=== PATIENT | female | born 1955 | race Caucasian/White ===

== ENCOUNTER 2018-03-20 16:45 | Emergency (ER) | payer MEDICARE, MEDICAID ==
[~2018-03-20 16:45] MED LIST: ISOVUE-370 76%-LOCM 1 ML ONE; Iopamidol 370 76% 50 ML VIAL FS ONE
[2018-03-20 17:11] LABS: #Basophils 0.1 thou/uL (0.0-0.2); #Lymphocytes 2.1 thou/uL (1.20-3.40); #Neutrophils 7.2 thou/uL (1.40-6.50); %Basophils 0.8 % (0.0-1.0); %Eosinophils 0.3 % (0.0-10.0); %Lymphocytes 19.9 % (21.0-51.0); %Monocytes 9.3 % (0.0-10.0); %Neutrophils 69.7 % (42.0-75.0); Hemoglobin 14.3 g/dL (12.0-16.0); Mean Corpuscular Hemoglobin 30.9 pg (27.0-31.0); Mean Corpuscular Volume 88.3 fl (81.0-99.0); Mean Platelet Volume 8.4 fL (7.4-10.4); Platelet Count 213 thou/uL (130-400); RBC Distribution Width 11.2 % (11.5-14.5); Red Blood Cell (RBC) Count 4.63 mill/uL (4.20-5.40); White Blood Cell (WBC) Count 10.4 thou/uL (4.8-10.8)
[2018-03-20] MEDS ORDERED: Ondansetron ODT 4 MG TAB ONE (17:28)
[2018-03-20] MEDS ORDERED: Metoclopramide HCl 10 MG/2 ML VIAL ONE (17:28)
[2018-03-20 17:40] LABS: CKMB 4.4 ng/mL (0-6.6); Troponin I Less than 0.010 ng/mL (< 0.028)
[2018-03-20 17:49] LABS: ALT (SGPT) 26 U/L (8-55); AST (SGOT) 41 U/L (5-34); Albumin 4.1 g/dL (3.4-4.8); Alkaline Phosphatase 113 U/L (40-150); Anion Gap 19 mmol/L (10-20); BUN (Urea Nitrogen) 9 mg/dL (9.8-20.1); Bilirubin, Total 0.6 mg/dL (0.2-1.2); Calc. Creatinine Clearance 0 mL/min (70-130); Calcium 9.2 mg/dL (7.8-10.44); Carbon Dioxide 21 mmol/L (23-31); Chloride 89 mmol/L (98-107); Estimated GFR-MDRD 72; Globulin 3.3 g/dL (2.4-3.5); Glucose 96 mg/dL (80-115); Lipase 16 U/L (8-78); Potassium 4.2 mmol/L (3.5-5.1); Protein, Total 7.4 g/dL (6.0-8.3); Sodium 125 mmol/L (136-145)
[2018-03-20] MEDS ORDERED: Fentanyl 100 MCG/2 ML VIAL ONE (19:08)
[2018-03-20 19:36] LABS: Bilirubin Negative (Negative); Blood, Urine Negative (Negative); Clarity CLOUDY (Clear); Glucose, Urine (Dipstick) Negative (Negative); Leukocyte Large (Negative); Nitrite Negative (Negative); Protein, Urine (Dipstick) Negative (Neg-Trace); Specific Gravity, Urine 1.018 (1.002-1.036); Urobilinogen 0.2 mg/dL (0.2-1.0); pH, Urine 7.5 (5.0-9.0)
[2018-03-20 19:39] LABS: Bacteria/HPF 2+ HPF (None Seen); Hyaline Casts/LPF 7-10 HYALINE CAST LPF (0-3 Hyaline); Pathc Cast-AUWi Flag 0.58 (0-2.49); Squamous Epithelial 0-3 HPF (0-3)
--- NOTE | 2018-03-20 19:52 | CT ---
CT OF ABDOMEN AND PELVIS PERFORMED WITH INTRAVENOUS CONTRAST ENHANCEMENT: 03/20/18 HISTORY: Nausea, vomiting, and diarrhea, abdominal pain. History of irritable bowel syndrome. Uterine ablation and cholecystectomy. The lung bases are clear. The liver, spleen, and pancreas regions appear unremarkable. The gallbladde r has been removed. Right and left adrenal glands and right and left kidneys are normal in size. There is no significant periaortic or mesenteric lymphadenopathy. Mild amount of stool seen throughout the colon. No evidence for obstruction. CT OF PELVIS PERFORMED WITH CONTRAST ENHANCEMENT: The appendix is difficult to definitely identify. I do not see any signs for appendicitis. There is n o inflammatory process, adenopathy or mass. IMPRESSION: 1. Postop cholecystectomy change. 2. No acute abnormalities of abdomen or pelvis. POS: BABAK
[2018-03-20] MEDS ORDERED: Ciprofloxacin 500 MG TAB ONE (21:30)
== END 2018-03-20 21:45 | disposition home or self-care (01) ==
LOC: ERS 16:45
DX: N39.0 Urinary tract infection, site not specified (principal); I10 Essential (primary) hypertension; J45.909 Unspecified asthma, uncomplicated; F41.9 Anxiety disorder, unspecified; F31.9 Bipolar disorder, unspecified
CPT/HCPCS: 74177; 80053; 81003; 81015; 82553; 83690; 84484; 85025; 93005; 96361; 96372; 96374; 96375; J2765; J3010; Q0162

== ENCOUNTER 2018-03-26 13:54 | Inpatient (IN) | payer MEDICARE, MEDICAID ==
[~2018-03-26 13:54] MED LIST changes: -ISOVUE-370 76%-LOCM 1 ML ONE; +Iopamidol 370 76% 100 ML VIAL ONE; -Iopamidol 370 76% 50 ML VIAL FS ONE
[2018-03-26 15:19] LABS: #Basophils 0.1 thou/uL (0.0-0.2); #Eosinphils 0.1 thou/uL (0.0-0.7); #Monocytes 0.7 thou/uL (0.11-0.59); %Basophils 1.5 % (0.0-1.0); %Eosinophils 0.9 % (0.0-10.0); %Lymphocytes 29.3 % (21.0-51.0); %Monocytes 9.6 % (0.0-10.0); %Neutrophils 58.8 % (42.0-75.0); Hemoglobin 14.6 g/dL (12.0-16.0); Mean Corpuscular HGB CONC 35.1 g/dL (32.0-36.0); Mean Corpuscular Hemoglobin 31.1 pg (27.0-31.0); Mean Corpuscular Volume 88.6 fl (81.0-99.0); Mean Platelet Volume 7.7 fL (7.4-10.4); Platelet Count 227 thou/uL (130-400); RBC Distribution Width 11.3 % (11.5-14.5); Red Blood Cell (RBC) Count 4.69 mill/uL (4.20-5.40); White Blood Cell (WBC) Count 6.8 thou/uL (4.8-10.8)
[2018-03-26 15:45] LABS: ALT (SGPT) 25 U/L (8-55); AST (SGOT) 29 U/L (5-34); Albumin 3.9 g/dL (3.4-4.8); Alkaline Phosphatase 112 U/L (40-150); Anion Gap 15 mmol/L (10-20); BUN (Urea Nitrogen) 6 mg/dL (9.8-20.1); Bilirubin, Total 0.5 mg/dL (0.2-1.2); CK (CPK) 313 U/L (29-168); Calc. Creatinine Clearance 0 mL/min (70-130); Calcium 8.2 mg/dL (7.8-10.44); Carbon Dioxide 21 mmol/L (23-31); Chloride 90 mmol/L (98-107); Estimated GFR-MDRD 81; Globulin 3.3 g/dL (2.4-3.5); Glucose 112 mg/dL (80-115); Lipase 22 U/L (8-78); Potassium 3.9 mmol/L (3.5-5.1); Protein, Total 7.2 g/dL (6.0-8.3); Sodium 122 mmol/L (136-145)
[2018-03-26 17:37] LABS: Bilirubin Negative (Negative); Blood, Urine Negative (Negative); Clarity CLEAR (Clear); Glucose, Urine (Dipstick) Negative (Negative); Leukocyte Moderate (Negative); Nitrite Negative (Negative); Protein, Urine (Dipstick) 30 mg/dL (Neg-Trace); Specific Gravity, Urine 1.011 (1.002-1.036); Urobilinogen 0.2 mg/dL (0.2-1.0); pH, Urine 8.5 (5.0-9.0)
[2018-03-26 17:39] LABS: Bacteria/HPF None Seen HPF (None Seen); Hyaline Casts/LPF 4-6 HYALINE CAST LPF (0-3 Hyaline); Pathc Cast-AUWi Flag 1.45 (0-2.49); RBC/HPF 0-3 HPF (0-3)
[2018-03-26] MEDS ORDERED: Fentanyl 100 MCG/2 ML VIAL ONE (17:41)
[2018-03-26 17:56] LABS: Transitional Epithelial 0-3 HPF (0-3)
[2018-03-26] MEDS ORDERED: Ondansetron HCl/PF 4 MG/2 ML Vial SLOW IVP SCH (18:30)
--- NOTE | 2018-03-26 18:34 | CT ---
CT ABDOMEN AND PELVIS WITH CONTRAST 03/26/18 HISTORY: Nausea, vomiting and diarrhea for three weeks. COMPARISON: CT abdomen and pelvis 03/20/18. FINDINGS: The lung bases are clear. No pericardial effusion. Common bile duct measures up to 9 mm in size with low grade intrahepatic biliary dilatation. This is mildly greater than what would be expected for reservoir effect. Mild fatty atrophy of the pancreas. No pancreatic duct dilatation. Adrenal glands are unremarkable. No hydroureteronephrosis. No dilated loops of large or small bowel. The appendix is felt to be visualized and appears normal. T he aortoiliac contour is nonaneurysmal. No free intraperitoneal gas or fluid. Asymmetric left, worse than right SI joint erosive changes. Mil d degenerative changes of the lumbar spine as well as the extensive lower lumbar spine facet arthrosi s. IMPRESSION: New from 03/20/18, intra and extrahepatic biliary dilatation with the common bile duct measuring just under 1 cm in size. Further characterization with ERCP/MRCP may be beneficial in this patient if theodora ent's biliary enzymes are elevated. POS: BABAK
[2018-03-26] MEDS ORDERED: Metoclopramide HCl 10 MG/2 ML VIAL ONE (19:39)
[2018-03-26] MEDS ORDERED: Ondansetron ODT 4 MG TAB SL PRN (22:30)
[2018-03-26] MEDS ORDERED: Sodium Chloride 0.9% 1,000 ML IV SCH (22:30)
[2018-03-26] MEDS ORDERED: Ondansetron HCl/PF 4 MG/2 ML Vial IVP PRN (22:30)
[2018-03-26 22:44] VITALS: BMI 41.9
[2018-03-26] MEDS ORDERED: Lorazepam 1 MG TAB PO SCH (23:45)
[2018-03-27] MEDS ORDERED: Bisacodyl 10 MG SUPP PR PRN (00:01)
[2018-03-27] MEDS ORDERED: Mag-Al 1200 mg/1200 mg/30 ML UDCUP PO PRN (00:01)
[2018-03-27] MEDS ORDERED: Sodium Chloride 0.9% 1,000 ML IV SCH (00:15)
[2018-03-27] MEDS: traMADol HCl 50 MG TAB PO PRN ×4 (00:36→20:19)
[2018-03-27] MEDS: Metoclopramide HCl 10 MG/2 ML VIAL IVP PRN ×3 (00:38→20:28)
[2018-03-27 00:51] LABS: Anion Gap 12 mmol/L (10-20); BUN (Urea Nitrogen) 5 mg/dL (9.8-20.1); Calc. Creatinine Clearance 157 mL/min (70-130); Calcium 7.6 mg/dL (7.8-10.44); Carbon Dioxide 20 mmol/L (23-31); Chloride 98 mmol/L (98-107); Estimated GFR-MDRD 85; Glucose 98 mg/dL (80-115); Sodium 127 mmol/L (136-145)
[2018-03-27] MEDS ORDERED: Potassium Chloride 20 MEQ TAB PO SCH (02:00)
[2018-03-27 07:40] LABS: Osmolality, Urine 241 mOsm/kg (300-900)
[2018-03-27 07:49] LABS: Sodium, Urine 67 mmol/L (Not Available)
[2018-03-27 08:09] LABS: #Eosinphils 0.1 thou/uL (0.0-0.7); #Lymphocytes 1.4 thou/uL (1.20-3.40); #Monocytes 0.8 thou/uL (0.11-0.59); #Neutrophils 3.8 thou/uL (1.40-6.50); %Basophils 0.6 % (0.0-1.0); %Eosinophils 0.9 % (0.0-10.0); %Lymphocytes 23.4 % (21.0-51.0); %Monocytes 13.7 % (0.0-10.0); %Neutrophils 61.4 % (42.0-75.0); Hemoglobin 12.8 g/dL (12.0-16.0); Mean Corpuscular Hemoglobin 31.4 pg (27.0-31.0); Mean Corpuscular Volume 89.6 fl (81.0-99.0); Mean Platelet Volume 7.6 fL (7.4-10.4); Platelet Count 192 thou/uL (130-400); RBC Distribution Width 11.4 % (11.5-14.5); Red Blood Cell (RBC) Count 4.06 mill/uL (4.20-5.40); White Blood Cell (WBC) Count 6.1 thou/uL (4.8-10.8)
[2018-03-27 08:29] LABS: Anion Gap 14 mmol/L (10-20); BUN (Urea Nitrogen) 5 mg/dL (9.8-20.1); Calc. Creatinine Clearance 157 mL/min (70-130); Calcium 7.3 mg/dL (7.8-10.44); Carbon Dioxide 20 mmol/L (23-31); Chloride 100 mmol/L (98-107); Estimated GFR-MDRD 85; Glucose 94 mg/dL (80-115); Potassium 3.7 mmol/L (3.5-5.1); Sodium 130 mmol/L (136-145)
[2018-03-27] MEDS ORDERED: Enoxaparin Sodium 30 MG/0.3 ML SYRINGE SC SCH (09:00)
[2018-03-27] MEDS: Enoxaparin Sodium 40 MG/0.4 ML SYRINGE SC SCH (09:04)
[2018-03-27] MEDS: Bupropion 150 MG XL TAB PO SCH (09:04)
[2018-03-27] MEDS: Aspirin 81 mg Enteric Coated Tablet PO SCH (09:04)
[2018-03-27] MEDS: Losartan 25 MG TAB PO SCH (09:05)
[2018-03-27] MEDS: OXcarbazepine 300 MG TAB PO SCH ×2 (09:06→20:19)
[2018-03-27] MEDS: Multivit, Therapeutic 1 TAB PO SCH (09:06)
[2018-03-27] MEDS: Metoprolol Tartrate 25 MG TAB PO SCH ×2 (09:06→20:18)
[2018-03-27] MEDS: Potassium Chloride 20 MEQ TAB PO SCH ×3 (09:06→20:17)
[2018-03-27] MEDS: Lorazepam 1 MG TAB PO SCH ×2 (09:07→20:19)
[2018-03-27] MEDS: Sodium Chloride 0.9% 1,000 ML IV SCH (13:00)
[2018-03-27 13:13] LABS: Anion Gap 9 mmol/L (10-20); BUN (Urea Nitrogen) 4 mg/dL (9.8-20.1); Calc. Creatinine Clearance 157 mL/min (70-130); Calcium 7.4 mg/dL (7.8-10.44); Carbon Dioxide 22 mmol/L (23-31); Chloride 103 mmol/L (98-107); Estimated GFR-MDRD 85; Glucose 95 mg/dL (80-115); Potassium 3.6 mmol/L (3.5-5.1); Sodium 130 mmol/L (136-145)
[2018-03-27 14:28] LABS: Anion Gap 12 mmol/L (10-20); BUN (Urea Nitrogen) 4 mg/dL (9.8-20.1); Calc. Creatinine Clearance 164 mL/min (70-130); Calcium 7.4 mg/dL (7.8-10.44); Carbon Dioxide 21 mmol/L (23-31); Chloride 102 mmol/L (98-107); Estimated GFR-MDRD 89; Glucose 92 mg/dL (80-115); Potassium 3.4 mmol/L (3.5-5.1); Sodium 132 mmol/L (136-145)
--- NOTE | 2018-03-27 15:00 | PDOC.PN ---
- Subjective Encounter Start Date: 03/27/18 Encounter Start Time: 14:58 Subjective: feels a little better.no vomiting .mild AP.no diarrhea -: no fever/chills - Objective Resuscitation Status: Resuscitation Status FULL:Full Resuscitation MAR Reviewed: Yes Vital Signs & Weight: Vital Signs (12 hours) Temp Pulse Resp BP Pulse Ox 03/27/18 11:54 97.9 F 82 16 138/84 98 03/27/18 08:00 97.9 F 82 16 115/71 97 03/27/18 03:00 98 F 90 17 119/67 97 Weight Admit Weight 260 lb Weight 260 lb I&O: 03/26/18 03/27/18 03/28/18 06:59 06:59 06:59 Intake Total 850 Output Total 350 Balance 500 Result Diagrams: 03/27/18 08:01 03/27/18 13:48 Additional Labs: Laboratory Tests 03/26/18 03/26/18 15:07 15:07 Creatine Kinase 313 H B-Hydroxybutyrate 0.33 H Phys Exam - Physical Examination Constitutional: NAD HEENT: PERRLA, moist MMs, sclera anicteric, oral pharynx no lesions Neck: no nodes, no JVD, supple, full ROM Respiratory: no wheezing, no rales, no rhonchi, clear to auscultation bilateral Cardiovascular: RRR, no significant murmur, no rub Gastrointestinal: soft, no distention, positive bowel sounds mild TTP diffusely Musculoskeletal: no edema, pulses present Neurological: non-focal, normal sensation, moves all 4 limbs Psychiatric: normal affect, A&O x 3 Skin: no rash Dx/Plan (1) Abdominal pain Code(s): R10.9 - UNSPECIFIED ABDOMINAL PAIN Status: Acute (2) Hyponatremia Code(s): E87.1 - HYPO-OSMOLALITY AND HYPONATREMIA Status: Acute Comment: improving with NS.cont and monitor (3) IBS (irritable bowel syndrome) Status: Acute (4) Hypertension Code(s): I10 - ESSENTIAL (PRIMARY) HYPERTENSION Status: Chronic (5) Hypothyroidism Code(s): E03.9 - HYPOTHYROIDISM, UNSPECIFIED Status: Chronic (6) Morbid obesity with BMI of 40.0-44.9, adult Code(s): E66.01 - MORBID (SEVERE) OBESITY DUE TO EXCESS CALORIES; Z68.41 - BODY MASS INDEX (BMI) 40.0-44.9, ADULT Status: Acute - Plan PT/OT, DVT proph w/SCDs Unclear etiology so far.Ductal dilatation on Ct of unclear significance -: Discussed w PCp-recent urine Cx & Stool studies incld CDiff was negative -: will send for stool studies again.cont NS -: awating GI recs -: Sodium better .monitor.nephrology consulted.david d/y dehydration * . Review of Systems - Review of Systems Constitutional: weakness, malaise ENT: negative: Ear Pain, Ear Discharge, Nose Pain, Nose Discharge, Nose Congestion, Mouth Pain, Mouth Swelling, Throat Pain, Throat Swelling, Other Respiratory: negative: Cough, Dry, Shortness of Breath, Hemoptysis, SOB with Excertion, Pleuritic Pain, Sputum, Wheezing Cardiovascular: negative: chest pain, palpitations, orthopnea, paroxysmal nocturnal dyspnea, edema, light headedness, other Gastrointestinal: Nausea Genitourinary: negative: Dysuria, Frequency, Incontinence, Hematuria, Retention , Other Musculoskeletal: negative: Neck Pain, Shoulder Pain, Arm Pain, Back Pain, Hand Pain, Leg Pain, Foot Pain, Other Skin: negative: Rash, Lesions, Deon, Bruising, Other Neurological: negative: Weakness, Numbness, Incoordination, Change in Speech, Confusion, Seizures, Other - Medications/Allergies Allergies/Adverse Reactions: Allergies Allergy/AdvReac Type Severity Reaction Status Date / Time egg Allergy Severe TROUBLE Verified 11/23/16 12:16 BREATHING peanut Allergy Severe NAUSEA/TROUBLE Verified 11/23/16 12:16 BREATHING rice Allergy Severe NAUSEA/TROUBLE Verified 11/23/16 12:16 BREATHING cephalexin monohydrate Allergy HIVES, Verified 11/23/16 12:08 [From Keflex] BREATHING TROUBLE morphine Allergy SWELLING, Verified 11/23/16 12:08 HIVES Penicillins Allergy Hives Verified 11/23/16 12:08 Sulfa (Sulfonamide Allergy Hives Verified 11/23/16 12:08 Antibiotics) Medications: Current Medications Al Hydroxide/Mg Hydroxide (Maalox) 30 ml PO Q6H PRN PRN Reason: Heartburn or Indigestion Aspirin (Ecotrin) 81 mg PO DAILY [facility] Last Admin: 03/27/18 09:04 Dose: 81 mg Bisacodyl (Dulcolax) 10 mg [place] Q24H PRN PRN Reason: Constipation Bupropion HCl (Wellbutrin Xl) 300 mg PO QAM [facility] Last Admin: 03/27/18 09:04 Dose: 300 mg Enoxaparin Sodium (Lovenox) 40 mg SC 0900 [facility] Last Admin: 03/27/18 09:04 Dose: 40 mg Sodium Chloride (Normal Saline 0.9%) 1,000 mls @ 75 mls/hr IV .[id number] [facility] Last Admin: 03/27/18 13:00 Dose: Not Given Levothyroxine Sodium (Synthroid) 175 mcg PO HS [facility] Lorazepam (Ativan) 0.5 mg PO BID [facility] Last Admin: 03/27/18 09:07 Dose: 0.5 mg Losartan Potassium (Cozaar) 50 mg PO DAILY [facility] Last Admin: 03/27/18 09:05 Dose: 50 mg Metoclopramide HCl (Reglan) 10 mg IVP Q8H PRN PRN Reason: Nausea Last Admin: 03/27/18 13:55 Dose: 10 mg Metoprolol Tartrate (Lopressor) 12.5 mg PO BID [facility] Last Admin: 03/27/18 09:06 Dose: 12.5 mg Multivitamins (Theragran) 1 tab PO DAILY [facility] Last Admin: 03/27/18 09:06 Dose: 1 tab Oxcarbazepine (Trileptal) 600 mg PO BID [facility] Last Admin: 03/27/18 09:06 Dose: 600 mg Potassium Chloride (K-Dur) 20 meq PO TID [facility] Last Admin: 03/27/18 09:06 Dose: 20 meq Promethazine HCl (Phenergan) 12.5 mg SLOW IVP Q6H PRN PRN Reason: Nausea/Vomiting Tramadol HCl (Ultram) 50 mg PO Q6H PRN PRN Reason: Pain Last Admin: 03/27/18 13:54 Dose: 50 mg Trazodone HCl (Desyrel) 200 mg PO HS [facility]
--- NOTE | 2018-03-27 17:28 | CON ---
DATE OF CONSULTATION: 03/27/2018 NEPHROLOGY CONSULT NOTE CONSULTING PHYSICIAN: Dalia Guillen M.D. REASON FOR ADMISSION: Nausea. REASON FOR CONSULTATION: Hyponatremia. HISTORY OF PRESENT ILLNESS: This is a 63-year-old female with history of hypertension, COPD, asthma, hypothyroidism, came to the hospital with nausea, vomiting, diarrhea for a few weeks and was found t o have hyponatremia at 122. She was started on IV fluids since sodium got better to 130. Nephrology is consulted. The patient is feeling a little bit better. No chest pain, no fever or chills report ed. No skin rash. PAST MEDICAL HISTORY: Positive for hypertension, asthma, hypothyroidism, and coronary artery disease . PAST SURGICAL HISTORY: Total knee replacement bilaterally, uterine ablation, cholecystectomy, thyroi dectomy, and sinus surgery. HOME MEDICATIONS: Include levothyroxine, bupropion, dicyclomine, Lopressor, lorazepam, losartan, pot assium chloride, trazodone, Trileptal, Bentyl, clonazepam, Cipro, and probiotic. ALLERGIES: EGG, PEANUT, RICE, CEPHALEXIN, MORPHINE, PENICILLIN, AND SULFA. SOCIAL HISTORY: No smoking, alcohol or drugs. FAMILY HISTORY: No history of any kidney disease. REVIEW OF SYSTEMS: The following complete review of systems was negative, unless otherwise mentioned in the HPI or below: Constitutional: Weight loss or gain, ability to conduct usual activities. Sk in: Rash, itching. Eyes: Double vision, pain. ENT/Mouth: Nose bleeding, neck stiffness, pain, te nderness. Cardiovascular: Palpitations, dyspnea on exertion, orthopnea. Respiratory: Shortness of breath, wheezing, cough, hemoptysis, fever or night sweats. Gastrointestinal: Poor appetite, abdom inal pain, heartburn, nausea, vomiting, constipation, or diarrhea. Genitourinary: Urgency, frequenc y, dysuria, nocturia. Musculoskeletal: Pain, swelling. Neurologic/Psychiatric: Anxiety, depressio n. Allergy/Immunologic: Skin rash, bleeding tendency. PHYSICAL EXAMINATION: GENERAL: This is an obese female in no apparent distress. VITAL SIGNS: Temperature 97.9, pulse 82, respirations 16, blood pressure 115/71. LABORATORY DATA: Sodium is 130 from 122 yesterday at 3:00 p.m., chloride 100, BUN is (01:48). Urine sodium is 67, urine osmolality is 241. ASSESSMENT AND PLAN: 1. Hyponatremia, improved with IV hydration, feels like multifactorial. She is on few medications w hich could cause hyponatremia. Continue hydration as long as sodium is getting better, but currently I am going to stop the IV fluids since in less than 24 hours. Nurse was advised to have IV fl uids, recheck sodium at 2:00 p.m. We will monitor. Continue hydration orally. 2. Edema, controlled. 4. Hypertension, stable. 5. Hypokalemia. 6. Acidosis, mild. 7. Monitor sodium. We will follow. Thank you for the consult.
[2018-03-27] MEDS: Pantoprazole 40 MG VIAL IVP SCH (20:17)
[2018-03-27] MEDS: Levothyroxine 175 MCG TAB PO SCH (20:17)
[2018-03-27] MEDS: traZODone HCl 50 MG TAB PO SCH (20:18)
[2018-03-28] MEDS: traMADol HCl 50 MG TAB PO PRN ×2 (03:29→13:52)
[2018-03-28] MEDS: Metoclopramide HCl 10 MG/2 ML VIAL IVP PRN ×2 (03:30→17:24)
[2018-03-28] MEDS: Sodium Chloride 0.9% 1,000 ML IV SCH (04:11)
[2018-03-28] MEDS: Acetaminophen 500 MG TAB PO PRN ×3 (04:11→21:31)
[2018-03-28] MEDS: Promethazine HCl 25 MG/ML VIAL SLOW IVP PRN ×2 (04:11→20:03)
[2018-03-28] MEDS ORDERED: Cosyntropin 250 MCG VIAL SLOW IVP SCH (05:15)
[2018-03-28 07:51] LABS: #Lymphocytes 1.5 thou/uL (1.20-3.40); #Monocytes 0.7 thou/uL (0.11-0.59); %Basophils 0.4 % (0.0-1.0); %Eosinophils 0.9 % (0.0-10.0); %Lymphocytes 29.1 % (21.0-51.0); %Monocytes 12.6 % (0.0-10.0); %Neutrophils 57.1 % (42.0-75.0); Hemoglobin 12.4 g/dL (12.0-16.0); Mean Corpuscular HGB CONC 34.9 g/dL (32.0-36.0); Mean Corpuscular Hemoglobin 31.6 pg (27.0-31.0); Mean Corpuscular Volume 90.8 fl (81.0-99.0); Mean Platelet Volume 7.4 fL (7.4-10.4); Platelet Count 185 thou/uL (130-400); RBC Distribution Width 11.4 % (11.5-14.5); Red Blood Cell (RBC) Count 3.92 mill/uL (4.20-5.40); White Blood Cell (WBC) Count 5.2 thou/uL (4.8-10.8)
[2018-03-28 08:09] LABS: Anion Gap 8 mmol/L (10-20); BUN (Urea Nitrogen) 4 mg/dL (9.8-20.1); Calc. Creatinine Clearance 167 mL/min (70-130); Calcium 7.4 mg/dL (7.8-10.44); Carbon Dioxide 26 mmol/L (23-31); Chloride 103 mmol/L (98-107); Estimated GFR-MDRD Greater than 90; Glucose 85 mg/dL (80-115); Magnesium 1.6 mg/dL (1.6-2.6); Phosphorus 3.7 mg/dL (2.3-4.7); Potassium 3.6 mmol/L (3.5-5.1); Sodium 133 mmol/L (136-145)
[2018-03-28] MEDS: OXcarbazepine 300 MG TAB PO SCH ×2 (09:07→21:32)
[2018-03-28] MEDS: Losartan 25 MG TAB PO SCH (09:07)
[2018-03-28] MEDS: Lorazepam 1 MG TAB PO SCH ×2 (09:08→21:32)
[2018-03-28] MEDS: Aspirin 81 mg Enteric Coated Tablet PO SCH (09:08)
[2018-03-28] MEDS: Bupropion 150 MG XL TAB PO SCH (09:08)
[2018-03-28] MEDS: Multivit, Therapeutic 1 TAB PO SCH (09:08)
[2018-03-28] MEDS: Potassium Chloride 20 MEQ TAB PO SCH ×3 (09:09→21:32)
[2018-03-28] MEDS: Metoprolol Tartrate 25 MG TAB PO SCH ×2 (09:09→21:24)
[2018-03-28] MEDS: Enoxaparin Sodium 40 MG/0.4 ML SYRINGE SC SCH (09:09)
[2018-03-28] MEDS: Pantoprazole 40 MG VIAL IVP SCH ×2 (09:09→21:32)
[2018-03-28] MEDS ORDERED: Ondansetron HCl/PF 4 MG/2 ML Vial ONE (10:22)
[2018-03-28] MEDS ORDERED: Fentanyl 100 MCG/2 ML VIAL ONE (11:06)
--- NOTE | 2018-03-28 11:12 | CON ---
DATE OF CONSULTATION: 03/27/2018 REASON FOR CONSULTATION: Nausea, vomiting, diarrhea. HISTORY OF PRESENT ILLNESS: Ms. Hilario is a pleasant 63-year-old female who [facility]on[facility]remia, intractable nausea, vomiting, diarrhea, and abdominal pain. She reports that sh joby came to the emergency room yesterday secondary to severe worsening suprapubic abdominal pain and cr amping. She reports that starting about a month ago, she began to have more problems with diarrhea, nausea, and some vomiting. She had associated lower abdominal cramping. It is often worse with meal s. She attributes this to her IBS, which she has had for many years. Ultimately about a week ago, s he reports she went to the ER for similar symptoms and she was told she had a UTI and she was dischar ged with Cipro. She ultimately came back last night as the suprapubic cramping pain became much wors e. She states the stools are pretty much watery. There has been no blood in the stool. She has had some retching and vomiting at times. Eating seems to make things worse. She has had this for some time. She has had problems with irritable bowel syndrome for about 25 year, she reports predominantl y diarrhea. She denies any weight loss. She denies any fever. She denies any melena, hematochezia, or hematemesis. She denies any recent sick contacts, travel. She does note that about the time all those started about a month ago, her mother and they have been going through her estate and kim t has been very stressful. She denies any rashes, myalgias, or arthralgias. She has history of into lerance to GLUT[facility]. She has had her previous screening colonoscopy, which I performed in 2017, which was normal. Here, she did have normal CBC, comp met profile except for a sodium of 122 on admission. Potassium was 3. Lipase was normal at 22. Liver function tests were normal with an and a bi lirubin of 0.5, alkaline phosphatase 112. Urinalysis showed moderate leukocyte esterase, 7-10 white blood cells. TSH was 1.13 in December of this year. White count 6.8, hemoglobin 14, platelet count 227. PAST MEDICAL HISTORY: Irritable bowel syndrome, remote history of alcohol abuse, hypertension, asthm a, hypothyroidism, anxiety, and depression. PAST SURGICAL HISTORY: Left knee repair, sinus surgery, uterine ablation, previous cholecystectomy, thyroidectomy. SOCIAL HISTORY: The patient does not drink or use drugs at this time. Does not smoke. ALLERGIES: EGGS, PEANUTS, RICE, KEFLEX, MORPHINE, PENICILLIN, SULFA. HOME MEDICATIONS: Trazodone, potassium chloride, oxcarbazepine, metoprolol, losartan, Ativan, levoth yroxine, bupropion, aspirin 81. Medications here, Maalox, Ecotrin, Dulcolax, bupropion 300 at bedtime, Lovenox, Synthroid 175 mcg william ly, Ativan, Cozaar, Reglan p.r.n., Lopressor, Theragran, Trileptal. FAMILY HISTORY: Negative for Crohn's, colitis, inflammatory bowel disease. Negative for celiac, GI malignancy. PHYSICAL EXAMINATION: VITAL SIGNS: Temperature is 98, pulse is 82, blood pressure 164/92. HEENT: Oropharynx without lesions. LUNGS: Clear. HEART: Regular without clicks or murmurs. ABDOMEN: Soft. There is mild tenderness in lower abdomen, but no rebound or guarding. Bowel sounds are fairly quiescent. There is no evidence of hernias. EXTREMITIES: No clubbing, cyanosis, or edema. NEUROLOGIC: She is intact. LABORATORY AND X-RAY FINDINGS: CT scan films were reviewed. Films were performed on 03/20/2018 and 03/27/2018 of the abdomen and pelvis. Both showed postop cholecystectomy changes with no acute menchaca es of the abdomen and pelvis. The 2nd noted intra and extrahepatic biliary ductal dilatation with co mmon bile duct just under 1 cm in size with further recommendations for ERCP if liver function tests were abnormal. These were not abnormal. Microbiology: Stool lactoferrin, C. diff, campylobacter, s higella negative. Stool cultures of yeast, lack of normal marichuy. Urine negative 48 hours fro m . ASSESSMENT: 1. Long history of irritable bowel. 2. Worsening diarrhea over the past month with normal stool studies and a negative CAT scan. No kel kocytosis. It is possible that this worsening in gastrointestinal symptoms have been related to her irritable bowel syndrome and increased stress from her mother's recent . The hyponatremia is co ncerning for dehydration, but her BUN and creatinine were pretty good and if you look back at her lab s, her sodium has been low for almost a complete year now. 3. With regard to CT with prominent ducts in the liver, this is related to post-cholecystectomy stat e. There is no evidence of obstruction. 4. The patient's lower abdominal pain has improved markedly since admission. She has had no diarrhe a, but she has not been eating. She has still some dry heaves at times. 5. Hyponatremia. Per Nephrology, they felt it was multifactorial with signs of hypotonic hyponatrem ia. They felt she is on multiple medicines that could cause this and I agree. It does not seem she is very dehydrated on admission labs or ER findings. RECOMMENDATIONS: 1. Check magnesium and phosphorus. 2. Check a celiac panel. 3. Start a PPI. 4. EGD with small bowel biopsies tomorrow in light of ongoing nausea. 5. If the patient remained hyponatremic, may want to consider further evaluation, but we would defer this to Nephrology. 6. We will check a.m. cortisol and stimulation test tomorrow.
--- NOTE | 2018-03-28 13:01 | PRG ---
DATE OF SERVICE: 03/28/2018 SUBJECTIVE: Patient was seen and examined at bedside and overnight events noted. Patient denies any shortness of breath or chest pain or palpitation. No history of nausea or vomiting or diarrhea or f ever or chills or cramps. OBJECTIVE: General: This is an obese female in no apparent distress. Vital Signs: Temperature 98.1, pulse 60, respiratory rate 14, and blood pressure 157/80. HEENT: Atraumatic, normocephalic, Oral mucosa is moist. Neck: Supple. Cardiovascular: S1 and S2 heard. Rate and rhythm regular. Respiratory: Clear to auscultation. Gastrointestinal: Abdomen is soft. Musculoskeletal: No tenderness, No edema. Dermatologic: No skin rash. Neurologic: Alert and awake and oriented x3. No focal neurologic deficits. Moving all the extremit ies. Psychiatric: Mood and affect normal. LABORATORY DATA: Potassium is 3.6, sodium is 133, BUN is 4, and creatinine 0.6. ASSESSMENT AND PLAN: 1. Hyponatremia. Sodium level is better, close to normal. Okay to stop IV fluids. I will sign off . 2. Edema, controlled. 3. Hypertension. 4. Hypokalemia, replace acidosis, stable. 5. Stop IV fluids. I will sign off. Please call back with any questions.
[2018-03-28] MEDS ORDERED: Lidocaine 1% PF 5 ML VIAL ONE (14:32)
[2018-03-28] MEDS ORDERED: PROPOFOL 200 MG/20 ML VIAL ONE (14:32)
--- NOTE | 2018-03-28 14:39 | PDOC.PN ---
- Subjective Encounter Start Date: 03/28/18 Encounter Start Time: 14:39 Subjective: s/p EGD ,feels about the same -: still with mild to moderate abd pain -: no stools so far - Objective Resuscitation Status: Resuscitation Status FULL:Full Resuscitation MAR Reviewed: Yes Vital Signs & Weight: Vital Signs (12 hours) Temp Pulse Resp BP Pulse Ox 03/28/18 12:10 97.8 F 71 16 176/97 H 98 03/28/18 08:00 98.1 F 68 14 157/80 H 96 03/28/18 03:59 97.9 F 81 16 166/73 H 95 Weight Admit Weight 260 lb Weight 260 lb I&O: 03/27/18 03/28/18 03/29/18 06:59 06:59 06:59 Intake Total 850 2105 Output Total 350 2050 Balance 500 55 Result Diagrams: 03/28/18 07:40 03/28/18 07:40 Phys Exam - Physical Examination Constitutional: NAD tired looking HEENT: PERRLA, moist MMs, sclera anicteric, oral pharynx no lesions Neck: no JVD Respiratory: no wheezing, no rales, no rhonchi, clear to auscultation bilateral Cardiovascular: RRR, no significant murmur, no rub Gastrointestinal: soft, no distention, positive bowel sounds mild TTP lower abdomen Musculoskeletal: no edema, pulses present Neurological: non-focal, normal sensation, moves all 4 limbs Psychiatric: normal affect, A&O x 3 Skin: no rash Dx/Plan (1) Abdominal pain Code(s): R10.9 - UNSPECIFIED ABDOMINAL PAIN Status: Acute (2) Hyponatremia Code(s): E87.1 - HYPO-OSMOLALITY AND HYPONATREMIA Status: Acute Comment: improving .cont to monitor.Stop IVF (3) IBS (irritable bowel syndrome) Status: Acute (4) Hypertension Code(s): I10 - ESSENTIAL (PRIMARY) HYPERTENSION Status: Chronic (5) Hypothyroidism Code(s): E03.9 - HYPOTHYROIDISM, UNSPECIFIED Status: Chronic (6) Morbid obesity with BMI of 40.0-44.9, adult Code(s): E66.01 - MORBID (SEVERE) OBESITY DUE TO EXCESS CALORIES; Z68.41 - BODY MASS INDEX (BMI) 40.0-44.9, ADULT Status: Acute - Plan out of bed/ambulate, DVT proph w/SCDs follow up results of EGD. Bx takem.Celiac Dz studies pending -: cont liquid diet.encourage PO intake. -: HD stable. -: cont to monitor Sodium -: Appreciate nephrology and GI input * . Review of Systems - Medications/Allergies Allergies/Adverse Reactions: Allergies Allergy/AdvReac Type Severity Reaction Status Date / Time egg Allergy Severe TROUBLE Verified 11/23/16 12:16 BREATHING peanut Allergy Severe NAUSEA/TROUBLE Verified 11/23/16 12:16 BREATHING rice Allergy Severe NAUSEA/TROUBLE Verified 11/23/16 12:16 BREATHING cephalexin monohydrate Allergy HIVES, Verified 11/23/16 12:08 [From Keflex] BREATHING TROUBLE morphine Allergy SWELLING, Verified 11/23/16 12:08 HIVES Penicillins Allergy Hives Verified 11/23/16 12:08 Sulfa (Sulfonamide Allergy Hives Verified 11/23/16 12:08 Antibiotics) Medications: Current Medications Acetaminophen (Tylenol) 1,000 mg PO Q6H PRN PRN Reason: Headache/Fever or Pain Last Admin: 03/28/18 13:51 Dose: 1,000 mg Al Hydroxide/Mg Hydroxide (Maalox) 30 ml PO Q6H PRN PRN Reason: Heartburn or Indigestion Aspirin (Ecotrin) 81 mg PO DAILY [facility] Last Admin: 03/28/18 09:08 Dose: 81 mg Bisacodyl (Dulcolax) 10 mg [place] Q24H PRN PRN Reason: Constipation Bupropion HCl (Wellbutrin Xl) 300 mg PO QAM [facility] Last Admin: 03/28/18 09:08 Dose: 300 mg Cosyntropin (Cortrosyn) 250 mcg SLOW IVP [facility] Last Admin: 03/28/18 07:30 Dose: 250 mcg Enoxaparin Sodium (Lovenox) 40 mg SC 0900 [facility] Last Admin: 03/28/18 09:09 Dose: 40 mg Levothyroxine Sodium (Synthroid) 175 mcg PO HS [facility] Last Admin: 03/27/18 20:17 Dose: 175 mcg Lorazepam (Ativan) 0.5 mg PO BID [facility] Last Admin: 03/28/18 09:08 Dose: 0.5 mg Losartan Potassium (Cozaar) 50 mg PO DAILY [facility] Last Admin: 03/28/18 09:07 Dose: 50 mg Metoclopramide HCl (Reglan) 10 mg IVP Q8H PRN PRN Reason: Nausea Last Admin: 03/28/18 03:30 Dose: 10 mg Metoprolol Tartrate (Lopressor) 12.5 mg PO BID [facility] Last Admin: 03/28/18 09:09 Dose: 12.5 mg Multivitamins (Theragran) 1 tab PO DAILY [facility] Last Admin: 03/28/18 09:08 Dose: 1 tab Oxcarbazepine (Trileptal) 600 mg PO BID [facility] Last Admin: 03/28/18 09:07 Dose: 600 mg Pantoprazole Sodium (Protonix) 40 mg IVP Q12HR [facility] Last Admin: 03/28/18 09:09 Dose: 40 mg Potassium Chloride (K-Dur) 20 meq PO TID [facility] Last Admin: 03/28/18 13:51 Dose: 20 meq Promethazine HCl (Phenergan) 12.5 mg SLOW IVP Q6H PRN PRN Reason: Nausea/Vomiting Last Admin: 03/28/18 04:11 Dose: 12.5 mg Sodium Chloride (Flush - Normal Saline) 10 ml IVF PRN PRN PRN Reason: Saline Flush Tramadol HCl (Ultram) 50 mg PO Q6H PRN PRN Reason: Pain Last Admin: 03/28/18 13:52 Dose: 50 mg Trazodone HCl (Desyrel) 200 mg PO HS [facility] Last Admin: 03/27/18 20:18 Dose: 200 mg
--- NOTE | 2018-03-28 15:51 | OP ---
DATE OF PROCEDURE: 03/28/2018 GI ENDOSCOPY NOTE SURGEON: Víctor Porter M.D. TELETYPIST SURGEON: None. PROCEDURE: Esophagogastroduodenoscopy with biopsies. INDICATION: 1. Nausea and vomiting. 2. Generalized abdominal pain. 3. Chronic diarrhea, with history of IBS, but also gluten intolerance. MEDICATIONS: See anesthesia record. FINDINGS: After discussion of the risks, benefits and alternatives of the procedure, informed consen t was obtained and witnessed. Pre-endoscopic cardiopulmonary examination was satisfactory. Timeout was performed before sedation was achieved. Sedation was achieved with anesthesia assistance in the endoscopy unit. A Pentax adult upper endoscope was placed into the oropharynx and passed through the cricopharyngeus under direct visualization. The esophageal mucosa was normal throughout with a norm al-appearing Z-line at 40 cm from the incisors. The endoscope was passed into the stomach. Forward and retroflexed views of the entire gastric mucosa were obtained. The gastric mucosa appeared normal throughout. The endoscope was advanced through the pylorus and into the first and second portions o f the duodenum, which also appeared normal. Duodenal biopsies were obtained to rule out celiac disea se. The upper endoscope was then completely withdrawn and the patient allowed to recover. The patie nt tolerated the procedure well. There were no immediate post-procedure complications. IMPRESSION: 1. Normal esophagogastroduodenoscopy. Duodenal biopsies obtained. 2. Irritable bowel syndrome. RECOMMENDATIONS: 1. Follow up pathology on the duodenal biopsies. 2. Clear liquid diet today. Advance as tolerated tomorrow if she is doing well. 3. Otherwise, continue supportive care.
[2018-03-28] MEDS: Levothyroxine 175 MCG TAB PO SCH (21:32)
[2018-03-28] MEDS: traZODone HCl 50 MG TAB PO SCH (21:32)
[2018-03-29] MEDS: Promethazine HCl 25 MG/ML VIAL SLOW IVP PRN (03:41)
[2018-03-29 05:10] LABS: #Basophils 0.1 thou/uL (0.0-0.2); #Eosinphils 0.1 thou/uL (0.0-0.7); #Lymphocytes 2.1 thou/uL (1.20-3.40); #Monocytes 0.7 thou/uL (0.11-0.59); #Neutrophils 2.7 thou/uL (1.40-6.50); %Eosinophils 1.3 % (0.0-10.0); %Lymphocytes 37.5 % (21.0-51.0); %Monocytes 11.7 % (0.0-10.0); %Neutrophils 48.5 % (42.0-75.0); Hemoglobin 12.4 g/dL (12.0-16.0); Mean Corpuscular HGB CONC 34.3 g/dL (32.0-36.0); Mean Corpuscular Hemoglobin 31.1 pg (27.0-31.0); Mean Corpuscular Volume 90.8 fl (81.0-99.0); Platelet Count 189 thou/uL (130-400); RBC Distribution Width 11.4 % (11.5-14.5); Red Blood Cell (RBC) Count 3.97 mill/uL (4.20-5.40); White Blood Cell (WBC) Count 5.6 thou/uL (4.8-10.8)
[2018-03-29] MEDS: Aspirin 81 mg Enteric Coated Tablet PO SCH (08:42)
[2018-03-29] MEDS: Enoxaparin Sodium 40 MG/0.4 ML SYRINGE SC SCH (08:42)
[2018-03-29] MEDS: Bupropion 150 MG XL TAB PO SCH (08:42)
[2018-03-29] MEDS: Lorazepam 1 MG TAB PO SCH (08:43)
[2018-03-29] MEDS: OXcarbazepine 300 MG TAB PO SCH (08:43)
[2018-03-29] MEDS: Losartan 25 MG TAB PO SCH (08:43)
[2018-03-29] MEDS: Metoprolol Tartrate 25 MG TAB PO SCH (08:43)
[2018-03-29] MEDS: Multivit, Therapeutic 1 TAB PO SCH (08:43)
[2018-03-29] MEDS: Potassium Chloride 20 MEQ TAB PO SCH ×2 (08:44→16:06)
[2018-03-29] MEDS: Pantoprazole 40 MG VIAL IVP SCH (08:44)
[2018-03-29] MEDS: Acetaminophen 500 MG TAB PO PRN (08:55)
[2018-03-29] MEDS ORDERED: Lactinex Tablet PO SCH (09:00)
--- NOTE | 2018-03-29 11:42 | PRG ---
DATE OF SERVICE: 03/29/2018 SUBJECTIVE: Ms. Hilario says she feels about the same. She has tolerated her liquid diet. She continu es to have some nausea, but no vomiting, no bowel movement since yesterday. PHYSICAL EXAMINATION: VITAL SIGNS: Temperature 97.6, pulse 64, blood pressure 176/77, 98% oxygen saturation on room air. GENERAL: No acute distress. HEART: Regular rate and rhythm. LUNGS: Clear to auscultation bilaterally. ABDOMEN: Bowel sounds present, soft, some diffuse mild tenderness to palpation, but no guarding or r ebound tenderness. EXTREMITIES: No peripheral edema. LABORATORY STUDIES: WBC 5.6, hemoglobin 12.4, and platelets 189. ASSESSMENT: 1. Nausea and vomiting, improved. 2. Generalized abdominal pain, likely secondary to irritable bowel syndrome. 3. Chronic diarrhea, secondary to irritable bowel syndrome, not an acute issue at this time. PLAN: I reviewed with Ms. Hilario that her EGD was normal. We are awaiting duodenal biopsies to rule o ut celiac disease. I think she could be safely discharged from the hospital with close follow up in our clinic with Dr. Dodd or his Physician Trust Administrative Assistant. We will not plan on any further endoscopic in vestigation at this time. GI will sign off, but please call back with any questions or concerns. I am sending in a prescription to her pharmacy for a short supply of promethazine 12.5 mg every 6 hours as needed.
--- NOTE | 2018-03-29 14:41 | PDOC.PN ---
- Subjective Encounter Start Date: 03/29/18 Encounter Start Time: 09:45 Subjective: c/o nausea and abd pain - Objective Resuscitation Status: Resuscitation Status FULL:Full Resuscitation MAR Reviewed: Yes Vital Signs & Weight: Vital Signs (12 hours) Temp Pulse Resp BP Pulse Ox 03/29/18 12:00 98.1 F 61 15 193/97 H 98 03/29/18 10:44 98 03/29/18 08:00 97.6 F 64 18 176/77 H 98 03/29/18 04:05 97.7 F 58 L 16 137/80 98 Weight Admit Weight 260 lb Weight 260 lb I&O: 03/28/18 03/29/18 03/30/18 06:59 06:59 06:59 Intake Total 2104 1889 Output Total 2049 1749 Balance 55 140 Result Diagrams: 03/29/18 03:50 03/28/18 07:40 Phys Exam - Physical Examination HEENT: PERRLA, moist MMs Neck: no JVD, supple Respiratory: no wheezing, no rales Cardiovascular: RRR, no significant murmur Gastrointestinal: soft, non-tender, no distention, positive bowel sounds Musculoskeletal: no edema, pulses present Neurological: non-focal, moves all 4 limbs Psychiatric: normal affect, A&O x 3 Dx/Plan (1) Abdominal pain Code(s): R10.9 - UNSPECIFIED ABDOMINAL PAIN Status: Acute Qualifiers: Abdominal location: epigastric Qualified Code(s): R10.13 - Epigastric pain (2) IBS (irritable bowel syndrome) Status: Chronic Qualifiers: Irritable bowel syndrome type: with constipation Qualified Code(s): K58.1 - Irritable bowel syndrome with constipation (3) Morbid obesity with BMI of 40.0-44.9, adult Code(s): E66.01 - MORBID (SEVERE) OBESITY DUE TO EXCESS CALORIES; Z68.41 - BODY MASS INDEX (BMI) 40.0-44.9, ADULT Status: Chronic (4) Anxiety and depression Code(s): F41.9 - ANXIETY DISORDER, UNSPECIFIED; F32.9 - MAJOR DEPRESSIVE DISORDER, SINGLE EPISODE, UNSPECIFIED Status: Chronic (5) Hypertension Code(s): I10 - ESSENTIAL (PRIMARY) HYPERTENSION Status: Chronic Qualifiers: Hypertension type: essential hypertension Qualified Code(s): I10 - Essential (primary) hypertension (6) Hypothyroidism Code(s): E03.9 - HYPOTHYROIDISM, UNSPECIFIED Status: Chronic Qualifiers: Hypothyroidism type: unspecified Qualified Code(s): E03.9 - Hypothyroidism , unspecified - Plan hemostable, advance diet as tolerated -: may dc if she is tolerating solid diet -: to f/u with in 4 weeks -: sod was 133 yesterday, on asp, cozaar, lopressor and protonix bid -: is on wellbutrin xl 300 qd, trazadone 200mg HS, trileptal 600 bid, ativan * . Review of Systems - Medications/Allergies Allergies/Adverse Reactions: Allergies Allergy/AdvReac Type Severity Reaction Status Date / Time egg Allergy Severe TROUBLE Verified 11/23/16 12:16 BREATHING peanut Allergy Severe NAUSEA/TROUBLE Verified 11/23/16 12:16 BREATHING rice Allergy Severe NAUSEA/TROUBLE Verified 11/23/16 12:16 BREATHING cephalexin monohydrate Allergy HIVES, Verified 11/23/16 12:08 [From Keflex] BREATHING TROUBLE morphine Allergy SWELLING, Verified 11/23/16 12:08 HIVES Penicillins Allergy Hives Verified 11/23/16 12:08 Sulfa (Sulfonamide Allergy Hives Verified 11/23/16 12:08 Antibiotics) Medications: Current Medications Acetaminophen (Tylenol) 1,000 mg PO Q6H PRN PRN Reason: Headache/Fever or Pain Last Admin: 03/29/18 08:55 Dose: 1,000 mg Acidophilus (Floranex) 1 tab PO DAILY [facility] Last Admin: 03/29/18 08:42 Dose: 1 tab Al Hydroxide/Mg Hydroxide (Maalox) 30 ml PO Q6H PRN PRN Reason: Heartburn or Indigestion Aspirin (Ecotrin) 81 mg PO DAILY [facility] Last Admin: 03/29/18 08:42 Dose: 81 mg Bisacodyl (Dulcolax) 10 mg NH Q24H PRN PRN Reason: Constipation Bupropion HCl (Wellbutrin Xl) 300 mg PO QAM [facility] Last Admin: 03/29/18 08:42 Dose: 300 mg Cosyntropin (Cortrosyn) 250 mcg SLOW IVP WILLCALL [facility] Last Admin: 03/28/18 07:30 Dose: 250 mcg Enoxaparin Sodium (Lovenox) 40 mg SC 0900 [facility] Last Admin: 03/29/18 08:42 Dose: 40 mg Levothyroxine Sodium (Synthroid) 175 mcg PO HS [facility] Last Admin: 03/28/18 21:32 Dose: 175 mcg Lorazepam (Ativan) 0.5 mg PO BID [facility] Last Admin: 03/29/18 08:43 Dose: 0.5 mg Losartan Potassium (Cozaar) 50 mg PO DAILY [facility] Last Admin: 03/29/18 08:43 Dose: 50 mg Metoclopramide HCl (Reglan) 10 mg IVP Q8H PRN PRN Reason: Nausea Last Admin: 03/28/18 17:24 Dose: 10 mg Metoprolol Tartrate (Lopressor) 12.5 mg PO BID [facility] Last Admin: 03/29/18 08:43 Dose: 12.5 mg Multivitamins (Theragran) 1 tab PO DAILY [facility] Last Admin: 03/29/18 08:43 Dose: 1 tab Oxcarbazepine (Trileptal) 600 mg PO BID [facility] Last Admin: 03/29/18 08:43 Dose: 600 mg Pantoprazole Sodium (Protonix) 40 mg IVP Q12HR [facility] Last Admin: 03/29/18 08:44 Dose: 40 mg Potassium Chloride (K-Dur) 20 meq PO TID [facility] Last Admin: 03/29/18 08:44 Dose: 20 meq Promethazine HCl (Phenergan) 12.5 mg SLOW IVP Q6H PRN PRN Reason: Nausea/Vomiting Last Admin: 03/29/18 03:41 Dose: 12.5 mg Sodium Chloride (Flush - Normal Saline) 10 ml IVF PRN PRN PRN Reason: Saline Flush Tramadol HCl (Ultram) 50 mg PO Q6H PRN PRN Reason: Pain Last Admin: 03/28/18 13:52 Dose: 50 mg Trazodone HCl (Desyrel) 200 mg PO HS [facility] Last Admin: 03/28/18 21:32 Dose: 200 mg
--- NOTE | 2018-03-29 15:17 | HP ---
PRIMARY CARE PHYSICIAN: Shakila Pérez M.D. CHIEF COMPLAINT: Nausea, vomiting, and abdominal pain. HISTORY OF PRESENT ILLNESS: This is a 63-year-old female with a known history of migraines, anxiety, depression with prior suicidal ideation, hypothyroidism, bipolar disorder, hypertension, hypokalemia , and irritable bowel syndrome who presents with a chief complaint of nausea, vomiting with intermitt ent diarrhea every day for the last 2-3 weeks. Patient denies any prior episodes of diarrhea this se monse. She states that she has seen a manager web, had gotten a colonoscopy approximately a ye ar ago and has IBS for her manifests as cycles of constipation alternating with diarrhea. She descri bes a sharp pain, worse in the lower half of her abdomen when compared to the upper. She has been un able to tolerate any sort of oral intake becoming very nauseated and vomiting anything she tries to t nima in. Patient lives alone. Denies any sick contacts. Denies any poorly prepared food that she thinks coul d have been contributory. REVIEW OF SYSTEMS: As per HPI. Constitutional: No significant weight loss or gain that the patient is aware of. No fevers, no chills during her episodes of nausea, vomiting, and diarrhea over the la st 3 weeks. HEENT: No new lightheadedness, dizziness, headache or vision changes. Cardiovascular: Denies any chest pain or chest pressure, left arm numbness or tingling. Denies any dyspnea with exe rtion. Respiratory: No new cough. No new shortness of breath, no dyspnea on exertion as noted abov e. Gastrointestinal: As noted above. Denies any blood in her emesis. She states her stools mostly watery at times, light yellow to brown. Genitourinary: Denies any dysuria or changes in urinary qu ality quantity. Musculoskeletal: Denies any myalgias or arthralgias. Remainder of the review of sy stems is otherwise negative. PAST MEDICAL HISTORY: As per HPI, 1. Hypertension. 2. Prior history of thyroid cancer status post what sounds like thyroidectomy and subsequent hypothy roidism. 3. Asthma. 4. Hypokalemia. 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 5. Anxiety and depression with suicide attempt in 11/2013. 6. History of bipolar disorder. 7. Status post bilateral total knee replacements. 8. Status post cholecystectomy. 9. Status post uterine ablation. HOME MEDICATIONS: Please see the EMR for full details. Patient denies any changes to her regimen in the last month. Denies any new over the counter herbal or vitamin supplements. Her regimen include s the following: Levothyroxine 125 mcg p.o. at bedtime, bupropion 300 mg p.o. q.a.m., aspirin 81 mg p.o. daily, metoprolol tartrate 12.5 mg p.o. b.i.d., losartan 50 mg p.o. daily, lorazepam 0.5 mg p.o. b.i.d., potassium chloride 20 mEq p.o. t.i.d., oxcarbazepine 600 mg p.o. b.i.d., multivitamin 1 tab p.o. daily and trazodone 200 mg p.o. at bedtime. ALLERGIES: Include the following EGG causes trouble breathing. PEANUT causes nausea with trouble br eathing. RICE causes nausea with trouble breathing. CEPHALEXIN causes hives and breathing trouble. MORPHINE causes swelling and hives. PENICILLIN causes hives and SULFAS cause hives. FAMILY HISTORY: Patient denies any known family history of gastrointestinal cancer or chronic issues with diarrhea, or other individuals with IBS. SOCIAL HISTORY: Patient lives home alone. Denies any tobacco, alcohol or illicit drug use. Denies any sick contacts. She states that she wishes to be FULL CODE at this point in time. PHYSICAL EXAMINATION: GENERAL: The patient is awake, alert, conversant, appears to be a reasonable historian, lying in the hospital bed. HEENT: Normocephalic, atraumatic. Slightly dry mucous membranes. Equal ocular motions are intact. Pupils are equal and reactive. CARDIOVASCULAR: S1, S2. No murmurs, rubs or gallops. Pulses 2+ bilateral upper extremities, no pit ting pedal edema. RESPIRATORY: Reasonable air movement. No conversational dyspnea. No wheezes, rales or rhonchi. ABDOMEN: Positive bowel sounds, tender to moderate palpation bilateral upper quadrant, tender to mil d palpation in bilateral lower quadrants and around the umbilicus. MUSCULOSKELETAL: Able to move all 4 extremities equally without assistance. LABORATORY DATA AND IMAGING: WBC 6.8, hemoglobin 14.6, hematocrit 41.6, platelets 227, sodium 122, p otassium 3.9, chloride 90, bicarbonate 21, BUN 6, creatinine 0.73, glucose 112, serum osms 260, calci um 8.2, total bilirubin 0.5, AST 29, ALT 25, alkaline phosphatase 115. Creatine kinase 113, total pr otein 7.2, albumin 3.9, lipase 22. Cortisol 7.4. UA is significant for 30 of protein, 40 of ketones , moderate leukocyte esterase, 7-10 wbc's, 7-10 rbc's, 4-6 hyaline casts. Beta hydroxybutyrate is 0. 33. On 03/26/2018, CT of the abdomen and pelvis, impression "new film 03/20/2018 intra and extrahepa tic biliary dilatation with the common bile duct measuring just under 1 cm in size. Further characte rization with ERCP MRCP may be beneficial in this patient if the patient's biliary enzymes are elevat ed." ASSESSMENT AND PLAN: 1. Nausea, vomiting, and diarrhea. Symptomatic management initially with IV fluids, antiemetics. W e will consult the patient's outpatient manager web who she states is Dr. Dodd. Patient's b iliary enzymes are not elevated and we will go ahead and recheck in the morning with conservative man agement. We will also initiate pain control as needed again for symptom management. I am not comple tely clear what the patient's etiology could be. We will go ahead and check her stool for potential infectious causes as well. 2. Hyponatremia with a sodium of 122 and grossly preserved mentation. Patient has a noted history o f hypokalemia, but does not recount a history of hyponatremia. We will consult Nephrology for their assistance. Continue with IV fluids normal saline as noted above. Patient does appear to be clinica lly dry at this point in time. 3. Hypertension, stable. Continue to closely monitor. 4. Hypothyroidism. We will check a TSH, T3, and T4. Continue the patient on her current home regim en. 5. Psychiatric history to include anxiety, depression, prior suicidal attempt, bipolar disorder, con tinue the patient on her home medication. 6. Diet: N.p.o. at this point in time. Okay for ice chips and sips of clears as the patient is abl e to tolerate for comfort. 7. Activity: As tolerated. 8. Deep venous thrombosis prophylaxis with enoxaparin. Thank you for asking me to care for your patient. Any questions, concerns, contact me at [facility].
--- NOTE | 2018-03-29 15:23 | EKG ---
Test Reason : Blood Pressure : / mmHG Vent. Rate : 074 BPM Atrial Rate : 074 BPM P-R Int : 142 ms QRS Dur : 088 ms QT Int : 418 ms P-R-T Axes : 047 051 070 degrees QTc Int : 463 ms Normal sinus rhythm Normal ECG Confirmed by JUAN OLVERA, JAYRO Schaeffer ([id number]), assignment editor HUSSEIN MALDONADO ([id number]) on 03/29/2018 3:22:51 PM Referred By: Confirmed By:JAYRO MARTINEZ MD
[2018-03-29 16:03] VITALS: BP 195/88; TEMP 98
--- NOTE | 2018-03-30 23:09 | DIS ---
DATE OF ADMISSION: 03/26/2018 DATE OF DISCHARGE: 03/31/2018 DISCHARGE DISPOSITION: To home. PRIMARY DISCHARGE DIAGNOSES: Intractable nausea, vomiting, and abdominal pain likely due to irritable bowel syndrome. SECONDARY DISCHARGE DIAGNOSES: Morbid obesity, anxiety, depression, hypertension, hypothyroidism, hyponatremia resolving. PROCEDURES DONE DURING HOSPITALIZATION: Patient has had abdominal and pelvic CAT scan done on the day of admission, which showed intra and extrahepatic biliary dilatation with common bile duct measuring just under 1 cm in size. Upper endoscopy done on 03/28/[address] Víctor Porter was essentially normal. Duodenal biopsies were obtained. Urine culture grew MRSA sensitive to MACROBID and SULFA. LABORATORY DATA: H&H 12 and 36, platelet count 189 with 48% neutrophils. White count of 5.6. Initial sodium was 122 discharge numbers of 133. Discharge BUN and creatinine 4 and 0.6. DISCHARGE MEDICATIONS: Aspirin 81 mg p.o. daily, bupropion XL 300 mg p.o. q.a.m., levothyroxine 175 mcg p.o. at bedtime, Ativan 0.5 mg p.o. twice daily, Cozaar 50 mg p.o. daily, metoprolol 12.5 mg p.o. twice daily, multivitamin 1 tab once daily, Macrobid 100 mg p.o. twice daily for 7 days, oxcarbazepine 600 mg p.o. twice daily, Phenergan 25 mg p.o. q.6 hourly p.r.n., trazodone 200 mg p.o. at bedtime. ALLERGIES: Multiple medications including KEFLEX, MORPHINE, PENICILLIN, SULFA, RICE, PEANUTS, and EGGS. INPATIENT CONSULTS: Dr. Dodd for gastroenterology, Dr. Hahn for nephrology and hyponatremia. BRIEF COURSE DURING HOSPITALIZATION: Patient was essentially admitted for nausea, vomiting, and diarrhea with abdominal pain. Her initial CAT scan was suspicious for intra and extrahepatic duct dilatation likely due to her prior cholecystectomy changes. She has had consultation with Dr. Dodd. Patient has history of irritable bowel syndrome. She was dehydrated with hyponatremia. Patient was gently hydrated during her stay and had upper endoscopy done as well. Upper endoscopy was within normal limits. Her sodium is slowly getting corrected. Patient was slowly weaned into clear liquid, full liquid, and solid diet prior to discharge. She needs to follow up with Dr. Dodd as advised and primary care physician in 1 week. Please see a [id number] documentation on [facility] for the day of discharge. RILEY
== END 2018-03-29 16:15 | disposition home or self-care (01) | DRG 392 ==
LOC: ERS 13:54 → SURG A 20:00
PROVIDERS: ADMIT Internal Medicine; ATTEND Internal Medicine
PROC: 0DB98ZX Excision of Duodenum, Via Natural or Artificial Opening Endoscopic, Diagnostic (ICD-10-PCS; principal; 2018-03-28)
DX: K58.2 Mixed irritable bowel syndrome (principal); E87.1 Hypo-osmolality and hyponatremia; E87.2 Acidosis; Z68.41 Body mass index [BMI] 40.0-44.9, adult; G43.909 Migraine, unspecified, not intractable, without status migrainosus; F41.9 Anxiety disorder, unspecified; F32.9 Major depressive disorder, single episode, unspecified; E03.9 Hypothyroidism, unspecified; F31.9 Bipolar disorder, unspecified; I10 Essential (primary) hypertension; E87.6 Hypokalemia; E66.01 Morbid (severe) obesity due to excess calories
CPT/HCPCS: 36415; 74177; 80048; 80053; 80400; 81003; 81015; 82010; 82150; 82533; 82550; 83630; 83690; 83735; 83930; 83935; 84100; 84300; 85025; 87045; 87046; 87077; 87081; 87086; 87186; 87324; 87449; 87899; 88305; 93005; 96361; 96372; 96374; 96375; C9113; J0834; J1650; J2001; J2405; J2550; J2704; J2765; J3010

== ENCOUNTER 2018-03-31 08:29 | Outpatient (CLI) | payer MEDICARE, MEDICAID | END 2018-03-31 08:30 | disposition home or self-care (01) | LOC: BICMAMMO 08:29 | PROVIDERS: ATTEND Internal Medicine Geriatric Medicine | DX: Z12.31 Encounter for screening mammogram for malignant neoplasm of breast (principal); Z85.850 Personal history of malignant neoplasm of thyroid | CPT/HCPCS: 77063; 77067 ==

== ENCOUNTER 2018-04-10 08:04 | Outpatient (CLI) | payer MEDICARE, MEDICAID ==
--- NOTE | 2018-04-10 18:36 | NM ---
NUCLEAR MEDICINE GASTRIC EMPTYING EXAM 04/10/18 HISTORY: 63-year-old female with irritable bowel syndrome, lower abdominal pain, nausea, vomiting, and diarrhe a. TECHNIQUE: A nuclear medicine gastric emptying exam was performed after the administration of 1.8 millicuries of technetium 99m sulfur colloid mixed with eggs. FINDINGS: 84% gastric emptying is seen at 30 minutes. 97% gastric emptying is seen at 63 minutes. T1/2 of gastr ic emptying is 20 minutes. No gastroesophageal reflux was seen during the examination. IMPRESSION: 1. Normal gastric emptying. 2. Gastroesophageal reflux disease. POS: [facility]
== END 2018-04-10 08:05 | disposition home or self-care (01) ==
LOC: NM 08:04
PROVIDERS: ATTEND Internal Medicine Gastroenterology
DX: K21.9 Gastro-esophageal reflux disease without esophagitis (principal); K58.9 Irritable bowel syndrome, unspecified; R11.2 Nausea with vomiting, unspecified
CPT/HCPCS: 78264; A9541

== ENCOUNTER 2018-10-06 09:10 | Emergency (ER) | payer MEDICARE, MEDICAID ==
--- NOTE | 2018-10-06 10:52 | CT ---
CT CERVICAL SPINE WITH CORONAL AND SAGITTAL REFORMATIONS: History: Fall, neck pain. FINDINGS/IMPRESSION: Degenerative changes are present, most prominent at C6-7 and C7-T1 levels. No acute fracture or sublu xation is identified. No facet malalignment is noted. POS: [facility]
--- NOTE | 2018-10-06 10:53 | CT ---
CT BRAIN WITHOUT CONTRAST: HISTORY: Fall, headache, possible loss of consciousness. FINDINGS: No evidence of infarct, hemorrhage, midline shift, or abnormal extraaxial fluid collections is seen. The ventricular size is appropriate and the basilar cisterns are patent. The bony calvarium is inta ct. The visualized paranasal sinuses and mastoid air cells are well aerated. IMPRESSION: No CT evidence of acute intracranial process. POS: [facility]
--- NOTE | 2018-10-06 10:54 | RAD ---
RIGHT KNEE RADIOGRAPHS FOUR VIEWS: Date: 10-06-18 Provided Clinical History: Pain. FINDINGS: Comparison 02-07-15. Changes of right total knee arthroplasty are demonstrated without evidence for hardware complications . Stable benign appearing area of sclerosis at the lateral distal femoral metaphyseal region. No evid ence for fracture or other acute osseous abnormality. IMPRESSION: No evidence for an acute osseous abnormality. If there is persistent clinical concern, conservative m anagement and follow up imaging are advised. POS: [facility]
--- NOTE | 2018-10-06 10:57 | RAD ---
RIGHT SHOULDER RADIOGRAPHS 3 VIEWS: DATE: 10/06/2018. PROVIDED CLINICAL HISTORY: Right shoulder pain. FINDINGS: Acromioclavicular joint osteoarthrosis is demonstrated. There is no evidence for a fracture or other acute osseous abnormality. If there is persistent clinical concern, conservative management and fol lowup imaging are advised. IMPRESSION: As above. POS: [facility]
--- NOTE | 2018-10-06 11:09 | CT ---
CT FACIAL BONES WITHOUT CONTRAST: Date: 10/06/18 HISTORY: Fall and pain. COMPARISON: None. FINDINGS: Bilateral ocular lenses are appropriately located. Both globes are intact. Retrobulbar fat is preserv ed. Symmetric attenuation of the optic nerves and ocular rectus muscles. Visualized brain parenchyma is unremarkable. Visualized calvarium is intact. There is hyperostosis frontalis interna. There is evidence of previous sinonasal surgery. No significant opacification of the paranasal sinuse s. The osseous margins of the sinuses and orbits are maintained. There is no fracture. There is degenerative change involving the left mandibular condyle. Right mandibular condyle is unrem arkable. No evidence of a mandible or maxilla fracture. Zygomatic arches are intact. Visualized aerodigestive tract is patent. No mucosal abnormality. There is a small amount of edema involving the right facial soft tissues overlying the right zygomati c arch. IMPRESSION: 1. No maxillofacial fracture. 2. Previous sinonasal surgery. 3. Small amount of edema involving the right facial soft tissues overlying the right zygomatic arch. POS: [facility]
== END 2018-10-06 11:15 | disposition home or self-care (01) ==
LOC: SCSER 09:10
DX: S16.1XXA Strain of muscle, fascia and tendon at neck level, initial encounter (principal); S00.83XA Contusion of other part of head, initial encounter; S40.011A Contusion of right shoulder, initial encounter; S80.01XA Contusion of right knee, initial encounter; I10 Essential (primary) hypertension; J45.909 Unspecified asthma, uncomplicated; F41.9 Anxiety disorder, unspecified; F31.9 Bipolar disorder, unspecified; Z79.899 Other long term (current) drug therapy; Z79.82 Long term (current) use of aspirin; W17.89XA Other fall from one level to another, initial encounter
CPT/HCPCS: 70450; 70486; 72125

== ENCOUNTER 2019-02-11 10:14 | Outpatient (CLI) | payer MEDICARE, MEDICAID ==
--- NOTE | 2019-02-11 10:39 | SJPRAD ---
F3 views right hand. HISTORY: Right hand pain. AP, lateral and oblique views right hand is obtained. 3 views right hand demonstrate no evidence of right hand fractures, subluxations or bony lesions. IMPRESSION: Normal 3 views right hand.
[2019-02-11 16:16] LABS: ALT (SGPT) 18 U/L (8-55); AST (SGOT) 26 U/L (5-34); Albumin 3.9 g/dL (3.4-4.8); Alkaline Phosphatase 130 U/L (40-150); Anion Gap 11 mmol/L (10-20); BUN (Urea Nitrogen) 10 mg/dL (9.8-20.1); Bilirubin, Total 0.4 mg/dL (0.2-1.2); Calc. Creatinine Clearance 0 mL/min (70-130); Calcium 8.2 mg/dL (7.8-10.44); Carbon Dioxide 32 mmol/L (23-31); Chloride 99 mmol/L (98-107); Estimated GFR-MDRD Greater than 90; Globulin 2.9 g/dL (2.4-3.5); Glucose 94 mg/dL (80-115); Potassium 4.1 mmol/L (3.5-5.1); Protein, Total 6.8 g/dL (6.0-8.3); Sodium 138 mmol/L (136-145); Uric Acid 4.2 mg/dL (2.6-6.0)
[2019-02-11 16:27] LABS: Band 11 % (5-11); Hemoglobin 13.1 g/dL (12.0-16.0); Lymphocytes 11 % (21-51); MDiff Complete? YES; Mean Corpuscular HGB CONC 34.3 g/dL (32.0-36.0); Mean Corpuscular Hemoglobin 31.4 pg (27.0-31.0); Mean Corpuscular Volume 91.6 fL (78.0-98.0); Mean Platelet Volume 8.9 fL (7.4-10.4); Monocytes 5 % (0-10); Neutrophil 73 % (42-75); Platelet Count 212 thou/uL (130-400); Platelet Morphology Comment Appears Adequate; RBC Distribution Width 11.2 % (11.5-14.5); Red Blood Cell (RBC) Count 4.15 mill/uL (4.20-5.40); White Blood Cell (WBC) Count 6.3 thou/uL (4.8-10.8)
== END 2019-02-11 10:15 | disposition home or self-care (01) ==
LOC: MWLC RAD 10:14
PROVIDERS: ATTEND Internal Medicine Geriatric Medicine
DX: M79.641 Pain in right hand (principal)
CPT/HCPCS: 80053; 84550; 85025

== ENCOUNTER 2019-12-18 21:04 | Inpatient (IN) | payer MEDICARE, MEDICAID ==
[~2019-12-18 21:04] MED LIST changes: -Iopamidol 370 76% 100 ML VIAL ONE; +Iopamidol-370 76% 500 ML 1 ML ONE
--- NOTE | 2019-12-18 21:57 | RAD ---
XR Chest 1 View Portable HISTORY: Chest pain COMPARISON: 11/23/2016 FINDINGS: The heart size is normal. The lungs are well expanded without focal areas of consolidation, pneumothorax or pleural effusions. IMPRESSION: No radiographic evidence of acute cardiopulmonary process.
[2019-12-18 22:01] LABS: #Eosinphils 0.1 thou/uL (0.0-0.7); #Lymphocytes 2.2 thou/uL (1.20-3.40); #Monocytes 0.8 thou/uL (0.11-0.59); #Neutrophils 4.9 thou/uL (1.40-6.50); %Basophils 0.6 % (0.0-1.0); %Lymphocytes 27.5 % (21.0-51.0); %Monocytes 10.4 % (0.0-10.0); %Neutrophils 60.5 % (42.0-75.0); Mean Corpuscular Hemoglobin 29.6 pg (27.0-31.0); Mean Corpuscular Volume 89.9 fL (78.0-98.0); Mean Platelet Volume 8.7 fL (7.4-10.4); Platelet Count 200 thou/uL (130-400); RBC Distribution Width 11.4 % (11.5-14.5); Red Blood Cell (RBC) Count 4.38 mill/uL (4.20-5.40)
[2019-12-18] MEDS ORDERED: Nitroglycerin 2% Ointment 1 INCH/1 GM Packet ONE (22:05)
[2019-12-18] MEDS ORDERED: Fentanyl 100 MCG/2 ML VIAL ONE ×2 (22:05→23:11)
[2019-12-18 22:18] LABS: ALT (SGPT) 17 U/L (8-55); AST (SGOT) 21 U/L (5-34); Albumin 3.6 g/dL (3.4-4.8); Alkaline Phosphatase 172 U/L (40-110); Anion Gap 15 mmol/L (10-20); BUN (Urea Nitrogen) 10 mg/dL (9.8-20.1); Bilirubin, Total 0.2 mg/dL (0.2-1.2); CK (CPK) 211 U/L (29-168); Calc. Creatinine Clearance 0 mL/min (70-130); Calcium 7.6 mg/dL (7.8-10.44); Carbon Dioxide 25 mmol/L (23-31); Chloride 103 mmol/L (98-107); Estimated GFR-MDRD 85; Globulin 2.7 g/dL (2.4-3.5); Glucose 143 mg/dL (80-115); Potassium 3.3 mmol/L (3.5-5.1); Protein, Total 6.3 g/dL (6.0-8.3); Sodium 140 mmol/L (136-145)
[2019-12-18 22:23] LABS: Magnesium 1.3 mg/dL (1.6-2.6)
[2019-12-18] MEDS ORDERED: Ketorolac Tromethamine 30 MG/ML VIAL ONE (22:26)
[2019-12-18] MEDS ORDERED: Ondansetron PF 4 MG/2 ML Vial ONE (22:26)
[2019-12-18] MEDS ORDERED: Nitroglycerin 50 MG/250 ML BOT 250 ML ONE (23:11)
--- NOTE | 2019-12-18 23:25 | CT ---
CTA CHEST WITH IV CONTRAST AND 3D POSTPROCESSING CTA ABDOMEN WITH IV CONTRAST AND 3D POSTPROCESSIN12/18/19 HISTORY: Chest pain, shortness of breath. Concern for aortic dissection. FINDINGS: There is good contrast opacification of the thoracoabdominal aorta without aneurysm or dissection. There are vascular calcifications. There is mild stenosis of the origin of the celiac axis. No signif icant stenosis is seen at the origins of the SMA and ALBERT. No significant stenosis seen at the origin of the renal arteries. There is good contrast opacification of the pulmonary arterial vasculature without filling defects to suggest pulmonary embolism. No pericardial pleural effusions are seen. No pneumothoraces, lobar consolidation, or lung nodules/ma sses are noted. There is a 2.5 cm solid appearing mass in the anterior mediastinum. The patient is post cholecystectomy. No free air, free fluid, or lymphadenopathy seen in the abdomen. No hypervascular liver masses are noted. The pancreas, adrenal glands, and right kidney are normal. There is a small cyst in the left kidney. There are degenerative changes in the thoracolumbar spine. IMPRESSION: 1. No CT evidence of aortic dissection or pulmonary embolism. 2. 2.5 cm anterior mediastinal mass. Possibility of neoplasm cannot be excluded. PET scan would be helpful. POS: OFF
[2019-12-18] MEDS ORDERED: Enoxaparin Sodium 30 MG/0.3 ML SYRINGE ONE (23:41)
[2019-12-18] MEDS ORDERED: Enoxaparin Sodium 100 MG/ML SYRINGE ONE (23:41)
[2019-12-19] MEDS ORDERED: Fentanyl 100 MCG/2 ML VIAL ONE (01:12)
[2019-12-19 01:26] LABS: Troponin I 0.016 ng/mL (< 0.028)
[2019-12-19] MEDS ORDERED: Nitroglycerin 50 MG/250 ML BOT 250 ML IVPB SCH (02:15)
[2019-12-19] MEDS ORDERED: Magnesium Oxide 400 MG TAB PO SCH (02:30)
[2019-12-19] MEDS ORDERED: Potassium Chloride 20 MEQ TAB PO SCH ×2 (02:30→05:00)
[2019-12-19] MEDS: Fentanyl 100 MCG/2 ML VIAL SLOW IVP PRN ×4 (02:48→20:46)
--- NOTE | 2019-12-19 03:45 | PDOC.FPRHP ---
- History of Present Illness Chief Complaint: Chest Pain History of Present Illness: Pt is a 64 yo female with PMH significant for non-ischemic cardiomyopathy, hx of thyroid cancer with thyroidectomy, anxiety, depression, HTN, IBS, asthma who presented with R sided chest pain for a couple hours prior to admission. Chest pain radiates down her right. It is sharp, stabbing in nature. Pain came on at rest. She denies diaphoresis, endorsed nausea. She was seen by her Photo Machine Operator, Dr. Larsen, for L sided chest pain who performed a stress test, PET scan last week and changed her cardiac medications. She states she had the PET scan performed due to increasing shortness of breath, productive sputum production. Her last echocardiogram revealed an EF < 40%, pulmonary HTN. She also has history of interstitial lung disease which resolved many years ago, well controlled asthma. ED Course: In the ED she was started on therapeutic lovenox, Labetalol 12.5 mg PO BID after discussion with cardiology. She was administered fentanyl 100 mcg x 2, toradol w/o alleviation. Her pain was mildly alleviated with a nitro drip. - Allergies/Adverse Reactions Allergies Allergy/AdvReac Type Severity Reaction Status Date / Time egg Allergy Severe TROUBLE Verified 12/19/19 02:17 BREATHING peanut Allergy Severe NAUSEA/TROUBLE Verified 12/19/19 02:17 BREATHING rice Allergy Severe NAUSEA/TROUBLE Verified 12/19/19 02:17 BREATHING cephalexin monohydrate Allergy HIVES, Verified 12/19/19 02:17 [From Keflex] BREATHING TROUBLE morphine Allergy SWELLING, Verified 12/19/19 02:17 HIVES Penicillins Allergy Hives Verified 12/19/19 02:17 Sulfa (Sulfonamide Allergy Hives Verified 12/19/19 02:17 Antibiotics) - Home Medications Medication Instructions Recorded Confirmed Type Aspirin [Low Dose Aspirin EC] 81 mg PO DAILY 08/31/14 03/26/18 History Bupropion HCl [buPROPion HCl XL] 300 mg PO QAM 08/31/14 03/26/18 History Levothyroxine Sodium 175 mcg PO HS 08/31/14 03/26/18 History Lorazepam [Ativan] 0.5 mg PO BID 08/31/14 03/26/18 History Multivitamin [Multi-Vitamin Daily] 1 tablet PO DAILY 08/31/14 03/26/18 History Potassium Chloride 20 meq PO TID 08/31/14 03/26/18 History traZODone HCl 200 mg PO HS 08/31/14 03/26/18 History Metoprolol Tartrate 12.5 mg PO BID 11/23/16 03/26/18 History OXcarbazepine [Oxcarbazepine] 600 mg PO BID 11/23/16 03/26/18 History Losartan Potassium 50 mg PO DAILY 06/04/17 03/26/18 History Promethazine [Phenergan] 25 mg PO Q6HR PRN #10 tab 03/29/18 Rx Nitrofurantoin Monohyd/M-Cryst 100 mg PO BID #14 cap 03/30/18 Rx [Macrobid] - History PMHx: Hx of thyroid cancer w/ thyroidectomy, Hypothyroid, Non-ischemic cardiomyopathy, anxiety, depression, HTN, asthma, remote hx of interstitial lung disease PSHx: bilaterak TKA's, Thyroidectomy, Cholecystectomy, Deviated Septum Repair FHx: Father - GA at 57, Mother - CHF at 97 Social: denies alcohol, drugs, tobacco - Review of Systems General: denies: fever/chills, weight/appetite/sleep changes ENT: denies: nasal congestion, rhinorrhea Respiratory: reports: cough, shortness of breath. denies: congestion Cardiovascular: reports: chest pain, palpitation. denies: edema Gastrointestinal: reports: nausea, diarrhea. denies: vomiting, constipation Genitourinary: denies: incontinence, dysuria, polyuria Skin: denies: rashes, lesions Neurological: denies: numbness, syncope, seizure - Vital signs BP: 160/76 HR: 77 RR: 18 Tmax: 98.5 Pox: 95% on RA Wt: 126 kg - Physical Exam Constitutional: NAD, awake, alert and oriented HEENT: PERRLA, EOMI Neck: FROM, trachea midline Heart: RRR, normal S1/S2, no edema Lungs: CTAB, no respiratory distress, no wheezing Abdomen: soft, bowel sounds present Musculoskeletal: normal structure, ROM grossly normal Neurological: no focal deficit, CN II-XII intact Skin: no rash/lesions Heme/Lymphatic: no purpura, no petechia FMR H&P: Results - Labs Result Diagrams: 12/19/19 03:22 12/19/19 11:25 Lab results: WBC 8.0 thou/uL (4.8-10.8) 12/18/19 21:47 Hgb 13.0 g/dL (12.0-16.0) 12/18/19 21:47 Hct 39.4 % (36.0-47.0) 12/18/19 21:47 MCV 89.9 fL (78.0-98.0) 12/18/19 21:47 Plt Count 200 thou/uL (130-400) 12/18/19 21:47 Neutrophils % 60.5 % (42.0-75.0) 12/18/19 21:47 Sodium 140 mmol/L (136-145) 12/18/19 21:47 Potassium 3.3 mmol/L (3.5-5.1) L 12/18/19 21:47 Chloride 103 mmol/L (98-107) 12/18/19 21:47 Carbon Dioxide 25 mmol/L (23-31) 12/18/19 21:47 BUN 10 mg/dL (9.8-20.1) 12/18/19 21:47 Creatinine 0.70 mg/dL (0.6-1.1) 12/18/19 21:47 Glucose 143 mg/dL (80-115) H 12/18/19 21:47 Calcium 7.6 mg/dL (7.8-10.44) L 12/18/19 21:47 Total Bilirubin 0.2 mg/dL (0.2-1.2) 12/18/19 21:47 AST 21 U/L (5-34) 12/18/19 21:47 ALT 17 U/L (8-55) 12/18/19 21:47 Alkaline Phosphatase 172 U/L (40-110) H 12/18/19 21:47 Creatine Kinase 211 U/L (29-168) H 12/18/19 21:47 Serum Total Protein 6.3 g/dL (6.0-8.3) 12/18/19 21:47 Albumin 3.6 g/dL (3.4-4.8) 12/18/19 21:47 Lipase 47 U/L (8-78) 12/18/19 21:47 - EKG Interpretation EKG: NSR with a PVC, no ST changes, QT prolonged at 480 - Radiology Interpretation CT scan - chest Status: image reviewed by me, report reviewed by me Additional comment: no dissection or PE, 2.5 cm anterior mediastinal mass Chest x-ray Status: image reviewed by me, report reviewed by me Additional comment: BARBARA WILLIAM H&P: A/P - Problem List (1) Chest pain Current Visit: Yes Status: Acute Code(s): R07.9 - CHEST PAIN, UNSPECIFIED (2) Unstable angina Current Visit: Yes Status: Acute (3) Hypokalemia Current Visit: Yes Status: Acute Code(s): E87.6 - HYPOKALEMIA (4) Hypomagnesemia Current Visit: Yes Status: Acute Code(s): E83.42 - HYPOMAGNESEMIA (5) Non-ischemic cardiomyopathy Current Visit: Yes Status: Acute Code(s): I42.8 - OTHER CARDIOMYOPATHIES (6) Anxiety and depression Current Visit: No Status: Chronic Code(s): F41.9 - ANXIETY DISORDER, UNSPECIFIED; F32.9 - MAJOR DEPRESSIVE DISORDER, SINGLE EPISODE, UNSPECIFIED (7) Hypertension Current Visit: No Status: Chronic Code(s): I10 - ESSENTIAL (PRIMARY) HYPERTENSION Qualifiers: Hypertension type: essential hypertension Qualified Code(s): I10 - Essential (primary) hypertension (8) Hypothyroidism Current Visit: No Status: Chronic Code(s): E03.9 - HYPOTHYROIDISM, UNSPECIFIED Qualifiers: Hypothyroidism type: unspecified Qualified Code(s): E03.9 - Hypothyroidism , unspecified (9) IBS (irritable bowel syndrome) Current Visit: No Status: Chronic Qualifiers: Irritable bowel syndrome type: with constipation Qualified Code(s): K58.1 - Irritable bowel syndrome with constipation (10) Morbid obesity with BMI of 40.0-44.9, adult Current Visit: No Status: Chronic Code(s): E66.01 - MORBID (SEVERE) OBESITY DUE TO EXCESS CALORIES; Z68.41 - BODY MASS INDEX (BMI) 40.0-44.9, ADULT - Plan Pt is a 64 yo female here for: # Unstable Angina - Cardiology consulted, appreciate recs - Start therapeutic lovenox, metoprolol 12.5 mg PO BID - continue nitro drip - NPO - did not restart home medications - TSH, lipid panel pending - Therapeutic lovenox # Non-Ischemic Cardiomyopathy EF < 40% per patient # Hypokalemia - replete # Hypomagnesemia - replete # Levothyroxine, Anxiety, Depression, HTN - held home meds Fluids: none Diet: NPO VTE: lovenox Code: Full Dispo: > 48 hr stay FMR H&P: Upper Level - Plan Date/Time: 12/19/19 0341 Haley Robert DO, have evaluated this patient and agree with findings/plan as outlined by [facility]ba internship resident. Pertinent changes/additions are listed here. Pt is a 64yo F with PMH of HTN, non-ischemic cardiomyopathy, hx of thyroid cancer s/p radioactive iodine treatments and surgical intervention presenting to ED via EMS after she had sudden onset of substernal chest pain described as a pressure type pain in the center and radiated to R chest and R arm with sharp pains. Pain associated with SOB and nausea. She denies diaphoresis. She reports increasing CP, SOB, cough over the last month. Seen by computer systems architect, Dr. Larsen last week and had stress test and PET scan done. She was given fentanyl and toradol without relief. They also gave her nitro-bid TD which provided her with minimal relief. She did not find marked improvement in pain until she was given nitro drip. She is resting comfortably now, VS stable with 130's SBP and HR in the 80's. On exam, she has no ttp along chest. Auscultation of heart with normal S1,S2, and no murmurs. Lung exam CTAB. Ext with trace LE edema. Pt is AOx3. EKG is NSR without ST changes. Troponin < 0.010. K 3.3, D-dimer 0.69. CTA without dissection or PE, does show a 2.5cm anterior mediastinal mass. A/P: 1)Unstable Angina: s/p ASA in ED. Cardiology consulted from ED. They recommended Metoprolol 12.5mg PO BID and therapeutic lovenonx. Will continue nitro drip and fentanyl for pain. NPO for likely procedure tomorrow. FLP to risk stratify. Will start high intensity statin. 2)Mediastinal Mass with hx of thyroid cancer: pt reports UTD on cancer screenings, no unexplained wt loss, hx of concerning breast lumps that were biopsied to be benign. Plan for further evaluation after ACS workup completed. 3)hypokalemia and hypomagnesemia: replace and recheck. 4)HTN: will monitor blood pressures on nitro drip, currently at goal. Will hold home antihypertensives for now. DVT ppx: Th lovenox GI ppx: none Dispo: Stable, LOS>48h Addendum - Attending - Attending Attestation Date/Time: 12/19/19 1222 I personally evaluated the patient and discussed the management with Dr. Simons and Chris. I agree with the History, Examination, Assessment and Plan documented above with any addition or exceptions noted below. Unstable angina -on NTG, lovenox -cards elected to not cath o/n -await their input
[2019-12-19 03:55] LABS: #Basophils 0.1 thou/uL (0.0-0.2); #Eosinphils 0.1 thou/uL (0.0-0.7); #Lymphocytes 2.7 thou/uL (1.20-3.40); #Monocytes 0.9 thou/uL (0.11-0.59); #Neutrophils 4.2 thou/uL (1.40-6.50); %Eosinophils 0.7 % (0.0-10.0); %Lymphocytes 34.2 % (21.0-51.0); %Monocytes 10.8 % (0.0-10.0); %Neutrophils 53.3 % (42.0-75.0); Hemoglobin 12.5 g/dL (12.0-16.0); Mean Corpuscular HGB CONC 34.7 g/dL (32.0-36.0); Mean Corpuscular Hemoglobin 31.1 pg (27.0-31.0); Mean Corpuscular Volume 89.5 fL (78.0-98.0); Platelet Count 188 thou/uL (130-400); RBC Distribution Width 11.4 % (11.5-14.5); Red Blood Cell (RBC) Count 4.03 mill/uL (4.20-5.40); White Blood Cell (WBC) Count 7.9 thou/uL (4.8-10.8)
[2019-12-19 04:01] VITALS: BMI 44.6
[2019-12-19 04:15] LABS: Anion Gap 14 mmol/L (10-20); BUN (Urea Nitrogen) 10 mg/dL (9.8-20.1); Calc. Creatinine Clearance 178 mL/min (70-130); Calcium 7.7 mg/dL (7.8-10.44); Carbon Dioxide 25 mmol/L (23-31); Chloride 104 mmol/L (98-107); Estimated GFR-MDRD Greater than 90; Glucose 101 mg/dL (80-115); Sodium 140 mmol/L (136-145)
[2019-12-19 04:18] LABS: Troponin I 0.028 ng/mL (< 0.028)
[2019-12-19] MEDS ORDERED: Metoprolol Tartrate 25 MG TAB PO SCH ×3 (04:45→21:00)
[2019-12-19 07:02] LABS: Cardiac Risk 3.9 (Less than 4.5); Magnesium 1.4 mg/dL (1.6-2.6)
[2019-12-19 07:07] LABS: Troponin I 0.014 ng/mL (< 0.028)
[2019-12-19] MEDS ORDERED: Enoxaparin Sodium 100 MG/ML SYRINGE SC SCH ×2 (09:00)
[2019-12-19] MEDS ORDERED: Enoxaparin Sodium 30 MG/0.3 ML SYRINGE SC SCH (09:00)
[2019-12-19 11:47] LABS: Potassium 3.7 mmol/L (3.5-5.1)
[2019-12-19] MEDS ORDERED: Ketorolac Tromethamine 30 MG/ML VIAL IVP SCH (12:30)
--- NOTE | 2019-12-19 14:52 | CON ---
DATE OF CONSULTATION: 12/19/2019 REASON FOR CONSULTATION: Chest pain. Dr. Eugene Larsen is the primary catch basin cleaner. HISTORY OF PRESENT ILLNESS: Ms. Hilario is a very pleasant 64-year-old woman who was recently seen and evaluated by Dr. Eugene Larsen. She had atypical chest pain and recently underwent a noninvasive stress study with a cardiac PET. The cardiac PET during my review appeared to be stable with no areas of ischemia present. LVEF normal. She states she has had this ongoing chest pressure, which is the reason she sought evaluation by Dr. Eugene Larsen. The pain appears to be more constant. She did have a new pain with right arm and shoulder discomfort. She then proceeded to the emergency room with the above. Her troponins and EKG have been within normal limits. Her blood pressure was elevated and placed on IV nitroglycerin and placed in the ICU. CURRENT MEDICATIONS: Include 1. Bupropion. 2. Dicyclomine. 3. Buspirone. 4. Potassium. 5. Trazodone. 6. Levothyroxine. 7. Aspirin. 8. Lorazepam. 9. Losartan. 10. Metoprolol. 11. Carbamazepine. 12. Sumatriptan. PAST MEDICAL HISTORY: Bipolar disorder, obesity, anxiety, hypertension, aortic insufficiency, and asthma. SURGICAL HISTORY: Thyroid removal, cholecystectomy, uterine ablation, knee replacement, sinus surgery. FAMILY HISTORY: Positive for CAD. SOCIAL HISTORY: No current tobacco or alcohol use. ALLERGIES: PENICILLIN, BACTRIM, CEPHALEXIN, MILK, SOYBEAN, WHEAT, CORN, EGG. REVIEW OF SYSTEMS: Ten-point review of systems was reviewed as above, otherwise negative. PHYSICAL EXAMINATION: GENERAL: Patient is a pleasant woman who is in no acute distress. The patient appears their stated age. VITAL SIGNS: Blood pressure 145/61, pulse 80, respirations 20. She is currently on IV nitroglycerin. NEUROLOGIC: The patient is alert and oriented x3 with no focal neurologic deficits. HEENT: Sclerae without icterus. Mouth has moist mucous membranes with normal pallor. NECK: No JVD. Carotid upstroke brisk. No bruits bilaterally. LUNGS: Clear to auscultation with unlabored respirations. BACK: No scoliosis or kyphosis. CARDIAC: Regular rate and rhythm with normal S1 and S2. No S3 or S4 noted. No significant rubs, murmurs, thrills, or gallops noted throughout the precordium. PMI is not displaced. There is no parasternal heave. ABDOMEN: Soft, nontender, nondistended. No peritoneal signs present. No hepatosplenomegaly. No abnormal striae. EXTREMITIES: 2+ femoral and 2+ dorsalis pedis pulses. No cyanosis, clubbing, or edema. SKIN: No gross abnormalities. PERTINENT LABORATORY DATA: Hemoglobin 12.5, hematocrit 36, platelet count 188, creatinine 0.65, GFR greater than 90. Troponin 0.014. EKG normal sinus rhythm, normal EKG. IMPRESSION: 1. Atypical chest pain. 2. Hypertension. RECOMMENDATIONS: Her symptoms do not appear to be anginal. Her recent stress study was negative for ischemia. Her troponin is negative. EKG negative. I discussed this with Mr. Hilario. At this point, can continue with medical therapy and control blood pressure. We will also consider coronary angiography if there is significant concern. She would like to think about her options. At this point, we will wean off her IV nitroglycerin. I will discontinue Lovenox and discontinue metoprolol in place of Coreg 6.25 b.i.d. and add losartan. Job ID: [id number]
[2019-12-19] MEDS ORDERED: Carvedilol 6.25 MG TAB PO SCH (15:15)
[2019-12-19] MEDS: Lorazepam 0.5 MG TAB PO SCH ×2 (15:53→20:35)
[2019-12-19] MEDS: carBAMazepine 200 MG TAB PO SCH ×2 (15:54→20:34)
[2019-12-19] MEDS: Ondansetron PF 4 MG/2 ML Vial IVP PRN (15:55)
[2019-12-19] MEDS ORDERED: Lorazepam 0.5 MG TAB PO SCH (16:00)
[2019-12-19] MEDS ORDERED: busPIRone HCl 10 MG TAB PO SCH (16:00)
[2019-12-19] MEDS ORDERED: carBAMazepine 200 MG TAB PO SCH (16:15)
[2019-12-19] MEDS: Lidocaine 2% Viscous Solution 10 ML, Aluminum & Magnesium Hydroxide 30 ML SSW SCH ×2 (16:49→18:33)
[2019-12-19] MEDS: busPIRone HCl 10 MG TAB PO SCH (20:34)
[2019-12-19] MEDS: Carvedilol 6.25 MG TAB PO SCH (20:34)
[2019-12-19] MEDS: Rosuvastatin 20 MG TAB PO SCH (20:36)
[2019-12-19] MEDS: traZODone HCl 50 MG TAB PO SCH (20:36)
[2019-12-19] MEDS ORDERED: FLU VACC QS2019-20(6MOS UP)/PF 60 MCG/0.5 ML SYRINGE IM ONE (21:00)
[2019-12-20] MEDS: Fentanyl 100 MCG/2 ML VIAL SLOW IVP PRN (04:53)
[2019-12-20 05:01] LABS: #Basophils 0.1 thou/uL (0.0-0.2); #Eosinphils 0.1 thou/uL (0.0-0.7); #Lymphocytes 1.9 thou/uL (1.20-3.40); #Monocytes 0.9 thou/uL (0.11-0.59); #Neutrophils 3.3 thou/uL (1.40-6.50); %Eosinophils 1.3 % (0.0-10.0); %Lymphocytes 31.1 % (21.0-51.0); %Monocytes 13.8 % (0.0-10.0); %Neutrophils 52.8 % (42.0-75.0); Hemoglobin 11.6 g/dL (12.0-16.0); Mean Corpuscular HGB CONC 34.2 g/dL (32.0-36.0); Mean Corpuscular Volume 90.9 fL (78.0-98.0); Mean Platelet Volume 8.9 fL (7.4-10.4); Platelet Count 174 thou/uL (130-400); RBC Distribution Width 11.4 % (11.5-14.5); Red Blood Cell (RBC) Count 3.75 mill/uL (4.20-5.40); White Blood Cell (WBC) Count 6.2 thou/uL (4.8-10.8)
[2019-12-20 05:19] LABS: Anion Gap 12 mmol/L (10-20); BUN (Urea Nitrogen) 9 mg/dL (9.8-20.1); Calc. Creatinine Clearance 178 mL/min (70-130); Calcium 7.3 mg/dL (7.8-10.44); Carbon Dioxide 28 mmol/L (23-31); Chloride 106 mmol/L (98-107); Estimated GFR-MDRD Greater than 90; Glucose 95 mg/dL (80-115); Potassium 3.6 mmol/L (3.5-5.1); Sodium 142 mmol/L (136-145)
--- NOTE | 2019-12-20 05:56 | CON ---
DATE OF CONSULTATION: 12/19/2019 HISTORY OF PRESENT ILLNESS: Trang Hilario is a 64-year-old female, 126 kg, presented to the ER with right anterior chest pain with some burning sensation without any nausea, vomiting, or diaphoresis. Initial blood pressure was 173/65, respirations 28, pulse 77, sats . She denied associated fever or chills. She had a recent cardiac workup done about a week ago. Results are still pending, which include a PET scan and a nuclear cardiac scan. Chest x-ray was normal. CT dissection protocol of chest was done, which now showed a 2.5 cm anterior mediastinal smooth masslike density. She is essentially a nonsmoker with previous history of asthma and previous history of pneumonia, but no history of TB exposure. Most days, she is relatively active. She lost about 6 pounds. PAST MEDICAL HISTORY: 1. Presumed asthma. 2. History of thyroid cancer. 3. History of recent cardiac workup. 4. History of irritable bowel syndrome. PAST SURGICAL HISTORY: Include; 1. Bilateral total knee. 2. Sinus surgery. 3. Uterine ablation. 4. Cholecystectomy. 5. Thyroid surgery. 6. Cardiac catheterization in the past. HOME MEDICATIONS: Include; 1. Synthroid 200. 2. Bupropion 150. 3. Ativan 1 mg. 4. Potassium. 5. Trazodone 100. 6. BuSpar 10. 7. Carbamazepine 200. 8. Entresto. 9. Metoprolol 25. 10. Oxybutynin 10. 11. Spironolactone 25. ALLERGIES: MULTIPLE INCLUDING MORPHINE, KEFLEX, PENICILLIN, AND SULFA, ALL CAUSE HIVES. REVIEW OF SYSTEMS: Otherwise, 10-point negative, may be snoring. PHYSICAL EXAMINATION: GENERAL: She is in no acute distress. VITAL SIGNS: Temperature 98, blood pressure 116/61, pulse 80, respiratory rate 18. CHEST: No wheezing or crackles. CARDIAC: Normal S1, S2. No gallops. ABDOMEN: No masses. LABORATORY DATA: White count 7000, H and H of 12 and 36, platelet count normal. Lytes are normal. IMPRESSION: 1. Chest pain, rule out coronary artery disease. 2. Anterior mediastinal mass, unknown etiology, possibly neoplastic that may require further workup. 3. Nonsmoker. 4. Asthma. 5. Obesity. PLAN: Await input from Cardiology. Regarding workup for anterior mediastinal mass at a later time once cardiology workup is negative. We will follow and discuss. This is a 70-minute consultation note, 50% direct patient care. Job ID: [id number]
[2019-12-20] MEDS ORDERED: Communication Order-Pharmacy FS SCH (06:45)
--- NOTE | 2019-12-20 07:22 | PDOC.FM ---
- Subjective Subjective: Pt reports feeling better this AM. denies current CP. reports she feels ready for heart cath saturday. no complaints at this time. no fever, no chills no sob, no cough - Objective Vital Signs & Weight: Vital Signs (12 hours) Temp Pulse Resp BP BP Pulse Ox 12/20/19 04:00 98.9 F 80 22 H 132/62 98 12/20/19 00:00 71 133/65 12/19/19 20:34 179/84 H 12/19/19 20:22 98.0 F 98 20 179/84 H 20 L Weight Weight 125.6 kg Most Recent Monitor Data Heart Rate from ECG 81 NIBP 149/72 NIBP BP-Mean 97 Respiration from ECG 21 SpO2 97 I&O: 12/19/19 12/20/19 12/21/19 06:59 06:59 06:59 Intake Total 118 827 Output Total 300 200 Balance -182 627 Result Diagrams: 12/20/19 04:31 12/20/19 04:31 Phys Exam - Physical Examination Constitutional: NAD HEENT: moist MMs, sclera anicteric Neck: supple, full ROM Respiratory: no wheezing, clear to auscultation bilateral Cardiovascular: RRR, no significant murmur Gastrointestinal: soft, non-tender Musculoskeletal: pulses present Neurological: non-focal, normal sensation Psychiatric: normal affect, A&O x 3 Skin: no rash, normal turgor Dx/Plan (1) Chest pain Code(s): R07.9 - CHEST PAIN, UNSPECIFIED Status: Acute (2) Hypokalemia Code(s): E87.6 - HYPOKALEMIA Status: Acute (3) Hypomagnesemia Code(s): E83.42 - HYPOMAGNESEMIA Status: Acute (4) Non-ischemic cardiomyopathy Code(s): I42.8 - OTHER CARDIOMYOPATHIES Status: Acute (5) Anxiety and depression Code(s): F41.9 - ANXIETY DISORDER, UNSPECIFIED; F32.9 - MAJOR DEPRESSIVE DISORDER, SINGLE EPISODE, UNSPECIFIED Status: Chronic (6) Hypertension Code(s): I10 - ESSENTIAL (PRIMARY) HYPERTENSION Status: Chronic Qualifiers: Hypertension type: essential hypertension Qualified Code(s): I10 - Essential (primary) hypertension (7) Hypothyroidism Code(s): E03.9 - HYPOTHYROIDISM, UNSPECIFIED Status: Chronic Qualifiers: Hypothyroidism type: unspecified Qualified Code(s): E03.9 - Hypothyroidism , unspecified (8) IBS (irritable bowel syndrome) Status: Chronic Qualifiers: Irritable bowel syndrome type: with constipation Qualified Code(s): K58.1 - Irritable bowel syndrome with constipation (9) Morbid obesity with BMI of 40.0-44.9, adult Code(s): E66.01 - MORBID (SEVERE) OBESITY DUE TO EXCESS CALORIES; Z68.41 - BODY MASS INDEX (BMI) 40.0-44.9, ADULT Status: Chronic - Plan Plan: CP 2/ MSK vs. GI A- pt admitted for unstable angina, this pain has improved with fentanyl. Cards is consulted and does not feel it to be cardiac etiology however they do plan for heart cath Saturday. nitro, metoprolol, and lovenox have been DCd, Coreg started. Pt refuses GI cocktail for pain however was started on protonix P- continue protonix -continue fentanyl for severe pain, add ibuprofen and tramadol to try and titrate off fentanyl -continue coreg and losartan per cards recs -restarted home ASA -plan for cath Saturday Non-Ischemic Cardiomyopathy -MD aware, EF < 40% per patient. Entresto currently held. losartan started by amari and coreg in place of metoprolol Hypokalemia -resolved Hypomagnesemia -replete and recheck Levothyroxine, Anxiety, Depression, HTN -restarted home meds VTE: lovenox Code: Full Addendum - Attending - Attending Attestation Date/Time: 12/20/19 8672 I personally evaluated the patient and discussed the management with the team. I agree with the History, Examination, Assessment and Plan documented above with any addition or exceptions noted below. ELIAS free this AM. In bed with a stuffed bunny. Cards debating on whether to cath now that her unstable angina vs msk vs combined symptoms have resolved.
[2019-12-20] MEDS ORDERED: traMADol HCl 50 MG TAB PO PRN (07:25)
[2019-12-20] MEDS ORDERED: Levothyroxine Sodium 100 MCG TAB PO SCH (07:30)
[2019-12-20] MEDS: Aspirin 81 mg Enteric Coated Tablet PO SCH (09:09)
[2019-12-20] MEDS: Potassium Chloride 20 MEQ TAB PO SCH ×3 (09:09→18:00)
[2019-12-20] MEDS: Carvedilol 6.25 MG TAB PO SCH ×2 (09:09→21:04)
[2019-12-20] MEDS: Lorazepam 0.5 MG TAB PO SCH ×2 (09:10→21:04)
[2019-12-20] MEDS: carBAMazepine 200 MG TAB PO SCH ×2 (09:10→21:03)
[2019-12-20] MEDS: busPIRone HCl 10 MG TAB PO SCH ×3 (09:10→21:03)
[2019-12-20] MEDS: Losartan 25 MG TAB PO SCH (09:10)
[2019-12-20] MEDS: Pantoprazole 40 MG GRANULES PACKET PO SCH (09:10)
[2019-12-20] MEDS: Bupropion 150 MG XL TAB PO SCH (09:10)
[2019-12-20] MEDS: Ibuprofen 600 MG TAB PO PRN ×2 (09:16→15:48)
--- NOTE | 2019-12-20 13:21 | PDOC.CPN ---
- Subjective Date: 12/20/19 Time: 12:00 Interval history: Still with SOB. No significant pain at rest, but pain with exertion. - Review of Systems General: denies: fever/chills, weight/appetite/sleep changes, night sweats, fatigue Respiratory: reports: shortness of breath Cardiovascular: reports: chest pain Gastrointestinal: denies: nausea, vomiting, diarrhea, constipation, abd pain, GI bleeding Musculoskeletal: denies: pain, tenderness, stiffness, swelling, arthritis/ arthralgias Neurological: denies: numbness, syncope, seizure, weakness - Objective Allergies/Adverse Reactions: Allergies Allergy/AdvReac Type Severity Reaction Status Date / Time egg Allergy Severe TROUBLE Verified 12/19/19 02:17 BREATHING peanut Allergy Severe NAUSEA/TROUBLE Verified 12/19/19 02:17 BREATHING rice Allergy Severe NAUSEA/TROUBLE Verified 12/19/19 02:17 BREATHING cephalexin monohydrate Allergy HIVES, Verified 12/19/19 02:17 [From Keflex] BREATHING TROUBLE morphine Allergy SWELLING, Verified 12/19/19 02:17 HIVES Penicillins Allergy Hives Verified 12/19/19 02:17 Sulfa (Sulfonamide Allergy Hives Verified 12/19/19 02:17 Antibiotics) Visit Medications: Current Medications Aspirin (Ecotrin) 81 mg PO DAILY [facility] Last Admin: 12/20/19 09:09 Dose: 81 mg Bupropion HCl (Wellbutrin Xl) 300 mg PO QAM [facility] Last Admin: 12/20/19 09:10 Dose: 300 mg Buspirone HCl (Buspar) 10 mg PO TID [facility] Last Admin: 12/20/19 09:10 Dose: 10 mg Carbamazepine (Tegretol) 400 mg PO BID [facility] Last Admin: 12/20/19 09:10 Dose: 400 mg Carvedilol (Coreg) 6.25 mg PO BID [facility] Last Admin: 12/20/19 09:09 Dose: 6.25 mg Fentanyl (Sublimaze) 50 mcg SLOW IVP Q2H PRN PRN Reason: Severe Pain (7-10) Last Admin: 12/20/19 04:53 Dose: 50 mcg Sodium Chloride (Normal Saline 0.9%) 1,000 mls @ 100 mls/hr IV .Q10H [facility] Ibuprofen (Motrin) 600 mg PO Q6H PRN PRN Reason: Mild Pain (1-3) Last Admin: 12/20/19 09:16 Dose: 600 mg Levothyroxine Sodium (Synthroid) 200 mcg PO ASDIR [facility] Lorazepam (Ativan) 0.5 mg PO BID [facility] Last Admin: 12/20/19 09:10 Dose: 0.5 mg Losartan Potassium (Cozaar) 25 mg PO DAILY [facility] Last Admin: 12/20/19 09:10 Dose: 25 mg Miscellaneous Information (Communication Order-Pharmacy) 0 each FS ONE [facility] Stop: 12/21/19 20:00 Ondansetron HCl (Zofran) 4 mg IVP Q6H PRN PRN Reason: Nausea/Vomiting Last Admin: 12/19/19 15:55 Dose: 4 mg Pantoprazole Sodium (Protonix) 40 mg PO DAILY [facility] Last Admin: 12/20/19 09:10 Dose: 40 mg Potassium Chloride (K-Dur) 20 meq PO TID-[facility] Last Admin: 12/20/19 13:10 Dose: 20 meq Rosuvastatin Calcium (Crestor) 20 mg PO [facility] Last Admin: 12/19/19 20:36 Dose: 20 mg Sodium Chloride (Flush - Normal Saline) 10 ml IVF Q12HR [facility] Last Admin: 12/20/19 10:33 Dose: 10 ml Sodium Chloride (Flush - Normal Saline) 10 ml IVF PRN PRN PRN Reason: Saline Flush Tramadol HCl (Ultram) 50 mg PO Q6H PRN PRN Reason: Moderate Pain (4-6) Trazodone HCl (Desyrel) 200 mg PO [facility] Last Admin: 12/19/19 20:36 Dose: 200 mg Vital Signs & Weight: Vital Signs Temp Pulse Resp BP Pulse Ox 12/20/19 12:00 97.8 F 85 16 141/70 H 96 12/20/19 07:40 97.5 F L 82 16 139/65 97 12/20/19 04:00 98.9 F 80 22 H 132/62 98 Weight 276 lb 14.409 oz - Physical Exam General: alert & oriented x3, appears well HEENT: mucus membranes moist Neck: supple neck Cardiac: regular rate and rhythm, no murmur Lungs: clear to auscultation Neuro: grossly intact Abdomen: soft, non-tender Extremities: no clubbing Skin: clear Musculoskeletal: no pain - Labs Result Diagrams: 12/20/19 04:31 12/20/19 04:31 Troponin/CKMB Troponin I 0.020 ng/mL (< 0.028) 12/19/19 15:53 - Assessment/Plan Assessment/Plan: 1. NICMO 2. SOB/GABRIEL 3. Chest pain Patient with history of normal coronaries on LHC in 2014. Recent normal PET. States Dr. Larsen previously wanted her to undergo LHC with symptoms. CP somewhat atypical, but will keep NPO for tomorrow and let them discuss.
--- NOTE | 2019-12-20 13:23 | PRG ---
DATE OF SERVICE: 12/20/2019 SUBJECTIVE: This morning, she is better, less short of breath, less cough. No pain. OBJECTIVE: VITAL SIGNS: Temperature 97, pulse 85, respirations 16, saturations are 90% on room air, and blood pressure 141/70. CHEST: Decreased breath sounds. No wheezing. CARDIAC: Normal S1, S2. No gallops. ABDOMEN: No masses. LABORATORY DATA: Unremarkable. ASSESSMENT: 1. Coronary syndrome. 2. Anterior mediastinal mass. 3. Obesity. PLAN: She is scheduled for tomorrow. Outpatient workup for the distal mass. Job ID: [id number]
[2019-12-20] MEDS: traZODone HCl 50 MG TAB PO SCH (21:02)
[2019-12-20] MEDS: Rosuvastatin 20 MG TAB PO SCH (21:03)
[2019-12-21 05:39] LABS: #Basophils 0.1 thou/uL (0.0-0.2); #Eosinphils 0.1 thou/uL (0.0-0.7); #Lymphocytes 1.6 thou/uL (1.20-3.40); #Monocytes 0.8 thou/uL (0.11-0.59); #Neutrophils 3.3 thou/uL (1.40-6.50); %Eosinophils 2.2 % (0.0-10.0); %Lymphocytes 27.9 % (21.0-51.0); %Monocytes 13.1 % (0.0-10.0); %Neutrophils 55.8 % (42.0-75.0); Hemoglobin 11.1 g/dL (12.0-16.0); Mean Corpuscular HGB CONC 34.1 g/dL (32.0-36.0); Mean Corpuscular Hemoglobin 30.6 pg (27.0-31.0); Mean Corpuscular Volume 89.7 fL (78.0-98.0); Mean Platelet Volume 9.1 fL (7.4-10.4); Platelet Count 165 thou/uL (130-400); RBC Distribution Width 11.1 % (11.5-14.5); Red Blood Cell (RBC) Count 3.61 mill/uL (4.20-5.40); White Blood Cell (WBC) Count 5.8 thou/uL (4.8-10.8)
[2019-12-21] MEDS ORDERED: Levothyroxine Sodium 100 MCG TAB PO SCH (06:00)
[2019-12-21] MEDS ORDERED: Sodium Chloride 0.9% 1,000 ML IV SCH (06:00)
[2019-12-21 06:01] LABS: Anion Gap 11 mmol/L (10-20); BUN (Urea Nitrogen) 8 mg/dL (9.8-20.1); Calc. Creatinine Clearance 184 mL/min (70-130); Calcium 7.5 mg/dL (7.8-10.44); Carbon Dioxide 28 mmol/L (23-31); Chloride 104 mmol/L (98-107); Estimated GFR-MDRD Greater than 90; Glucose 87 mg/dL (80-115); Magnesium 1.7 mg/dL (1.6-2.6); Potassium 3.6 mmol/L (3.5-5.1); Sodium 139 mmol/L (136-145)
[2019-12-21] MEDS ORDERED: Lidocaine 1% (PF) 30 ML VIAL ONE (06:54)
[2019-12-21] MEDS ORDERED: Heparin (Artline) 1,000 ML ONE (06:54)
[2019-12-21] MEDS ORDERED: Nitroglycerin 100MG/250ML BOT 250 ML ONE (07:20)
[2019-12-21] MEDS ORDERED: Verapamil 5 MG/2 ML VIAL ONE (07:20)
[2019-12-21] MEDS ORDERED: Heparin 10,000 UNITS/1 ML VIAL ONE (07:20)
[2019-12-21] MEDS ORDERED: Fentanyl 100 MCG/2 ML VIAL ONE (07:21)
[2019-12-21] MEDS ORDERED: Midazolam HCl 2 mg/2 ml Vial ONE (07:21)
[2019-12-21] MEDS ORDERED: hydrALAZINE 20 MG/ML VIAL ONE (07:55)
--- NOTE | 2019-12-21 08:03 | PDOC.FM ---
- Subjective Subjective: pt returning from cath, denies chest pain/sob - Objective Vital Signs & Weight: Vital Signs (12 hours) Temp Pulse Resp BP BP Pulse Ox 12/21/19 03:48 98.6 F 83 18 135/67 97 12/20/19 21:04 169/74 H 12/20/19 20:37 97.8 F 84 20 169/74 H 94 L Weight Weight 125.554 kg Most Recent Monitor Data Heart Rate from ECG 81 NIBP 149/72 NIBP BP-Mean 97 Respiration from ECG 21 SpO2 97 I&O: 12/20/19 12/21/19 12/22/19 06:59 06:59 06:59 Intake Total 827 300 Output Total 200 Balance 627 300 Result Diagrams: 12/21/19 04:24 12/21/19 04:24 Phys Exam - Physical Examination Constitutional: NAD HEENT: moist MMs Neck: no JVD Gastrointestinal: non-tender, no distention Musculoskeletal: no edema Neurological: moves all 4 limbs Psychiatric: normal affect Skin: no rash Dx/Plan (1) Chest pain Code(s): R07.9 - CHEST PAIN, UNSPECIFIED Status: Acute (2) Hypokalemia Code(s): E87.6 - HYPOKALEMIA Status: Acute (3) Hypomagnesemia Code(s): E83.42 - HYPOMAGNESEMIA Status: Acute (4) Non-ischemic cardiomyopathy Code(s): I42.8 - OTHER CARDIOMYOPATHIES Status: Acute (5) Unstable angina Status: Acute - Plan Plan: Atypical chest pain - initially treated as unstable angina, cardiology consulted - likely GI in nature, continue protonix - add ibuprofen and tramadol to try and titrate off fentanyl -continue coreg and losartan per cards recs -cath wnl today Non-Ischemic Cardiomyopathy -EF < 40% per patient. Entresto currently held. losartan started by cards and coreg in place of metoprolol Hypokalemia -resolved Hypomagnesemia -resolved, monitor Levothyroxine, Anxiety, Depression, HTN -continue home meds VTE: lovenox Code: Full dispo: consider dc later today Addendum - Attending - Attending Attestation Date/Time: 12/21/19 1130 I personally evaluated the patient and discussed the management with Dr. Reyes I agree with the History, Examination, Assessment and Plan documented above with any addition or exceptions noted below. S/P heart cath this am unofficial report wnl will advance diet and activities per post cath protocols and consider d/c later today for further evaluation as outpatient pending official Catherization report and recommendations and observation for continued improvement.
[2019-12-21] MEDS ORDERED: Nitroglycerin 0.4 MG TAB (25 Tab Bottle) SL PRN (08:10)
[2019-12-21] MEDS ORDERED: Sodium Chloride 0.9% 200 ML IV PRN (08:10)
[2019-12-21] MEDS ORDERED: Metoprolol Tartrate 5 MG/5 ML VIAL ONE (08:13)
[2019-12-21] MEDS ORDERED: Labetalol HCl 100 MG/20 ML VIAL ONE (08:13)
[2019-12-21] MEDS ORDERED: Sodium Chloride 0.9% 500 ML IV SCH (08:15)
[2019-12-21] MEDS ORDERED: Nitroglycerin 4.9 GM Bottle ONE (08:20)
[2019-12-21] MEDS: Ondansetron PF 4 MG/2 ML Vial IVP PRN (09:32)
--- NOTE | 2019-12-21 09:37 | PRG ---
DATE OF SERVICE: 12/21/2019 SUBJECTIVE: Trang Hilario is a 64-year-old, morbidly obese female, status post cardiac cath, apparently it was unremarkable. OBJECTIVE: VITAL SIGNS: Temperature 98, pulse 83, respiratory rate 18, saturations are 97 on room air, blood pressure 130/67. CHEST: Decreased breath sounds. No wheezing. CARDIAC: Normal S1 and S2. No gallops. ABDOMEN: No masses. IMPRESSION AND PLAN: Status post chest pain, negative cath; anterior mediastinal mass. She can go home. Follow up in the office regarding the mediastinal mass. Job ID: [id number]
[2019-12-21] MEDS: busPIRone HCl 10 MG TAB PO SCH ×2 (10:55→15:28)
[2019-12-21] MEDS: Aspirin 81 mg Enteric Coated Tablet PO SCH (10:55)
[2019-12-21] MEDS: Potassium Chloride 20 MEQ TAB PO SCH ×3 (10:55→17:21)
[2019-12-21] MEDS: Bupropion 150 MG XL TAB PO SCH (10:55)
[2019-12-21] MEDS: Lorazepam 0.5 MG TAB PO SCH (10:56)
[2019-12-21] MEDS: Losartan 25 MG TAB PO SCH (10:56)
[2019-12-21] MEDS: Carvedilol 6.25 MG TAB PO SCH (10:56)
[2019-12-21] MEDS: carBAMazepine 200 MG TAB PO SCH (10:56)
[2019-12-21] MEDS: Ibuprofen 600 MG TAB PO PRN (10:57)
[2019-12-21] MEDS: Pantoprazole 40 MG GRANULES PACKET PO SCH (11:00)
[2019-12-21] MEDS ORDERED: Iopamidol 370 76% 100 ML VIAL ONE (15:16)
[2019-12-21 16:06] VITALS: BP 142/71; TEMP 97.3
--- NOTE | 2019-12-22 21:59 | DIS ---
DATE OF ADMISSION: 12/19/2019 DATE OF DISCHARGE: 12/21/2019 ADMITTING ATTENDING: Jj Dickson MD DISCHARGE ATTENDING: Raleigh Clark MD CONSULTS: 1. Cardiology, Dr. Carlos Montano. 2. Pulmonology, Dr. Davis Almaguer. IMAGING: Chest x-ray showed no acute cardiopulmonary abnormalities. CT chest revealed no acute cardiopulmonary abnormalities with the suction of a smooth mediastinal mass. PROCEDURES: Left heart catheterization revealed normal findings with mild mid LAD disease. No stents were placed. DISCHARGE MEDICATIONS: 1. Trazodone 200 mg p.o. at bedtime. 2. Multivitamin one tab p.o. daily. 3. Aspirin 81 mg p.o. daily. 4. Potassium chloride 20 mEq p.o. t.i.d. 5. Ativan 0.5 mg p.o. b.i.d. 6. Levothyroxine 200 mcg p.o. as directed. 7. Bupropion 200 mg p.o. q.a.m. 8. Atarax 100 mg p.o. q.12 hours p.r.n. 9. Spironolactone 25 mg p.o. daily. 10. Oxybutynin 10 mg p.o. daily. 11. Entresto 49/51 one each p.o. b.i.d. 12. Dicyclomine 20 mg p.o. daily. 13. Carbamazepine 2 tabs p.o. b.i.d. 14. Buspirone 10 mg p.o. t.i.d. 15. Coreg 6.25 mg p.o. b.i.d. 16. Losartan 25 mg p.o. daily. 17. Pantoprazole 40 mg p.o. daily. 18. Rosuvastatin 10 mg p.o. at bedtime. DISCHARGE DIAGNOSIS: Atypical chest pain. SECONDARY DIAGNOSES: 1. Nonischemic cardiomyopathy. 2. Hypokalemia. 3. Hypomagnesemia. 4. Hypothyroidism. 5. Anxiety and depression. 6. Hypertension. HISTORY OF PRESENT ILLNESS/HOSPITAL COURSE: This is a 64-year-old female with past medical history significant for nonischemic cardiomyopathy, history of thyroid cancer with thyroidectomy, anxiety, depression, hypertension, IBS, and asthma, who presented to the emergency department for right-sided chest pain for couple of hours prior to admission. Chest pain radiates down her right arm, sharp stabbing in nature, came on at rest. Denied diaphoresis at that time. She recently had a stress test, PET scan last week and her medication was changed by Dr. Larsen. Her last echocardiogram had an EF of less than 40%. She has a diagnosis of pulmonary hypertension as well. In the emergency department, she was started on therapeutic Lovenox and labetalol and given fentanyl, Toradol, and initially admitted to the IMCU on a nitroglycerin drip. The patient was able to be weaned off the nitroglycerin drip without chest pain. Declined to receive GI cocktail as the chest pain was deemed to be believed that was not cardiac in nature. EKG revealed no acute abnormalities. Troponins remained negative throughout the patient's hospital stay. The patient was started on Protonix and her chest pain mildly improved. Left heart catheterization revealed no significant abnormalities. The patient was deemed stable for discharge home for medical management. DISCHARGE INSTRUCTIONS: 1. Location: Home. 2. Diet: Heart healthy. 3. Activity: As tolerated. 4. Followup: With PCP in the next 3 to 7 days. Job ID: [id number] Patient will have further evaluation of anterior mediastinal mass of undetermined significance as outpatient per Pulmonology recommendations. RILEY
--- NOTE | 2019-12-23 02:20 | PQF ---
[employer] Medical Staff Credentialing Coordinator Crystal Reports Winform Viewer BISHOP REYNOLDS ALYSSIABEVERLY [id number] [facility]287 [id number] CLINICAL DOCUMENTATION CLARIFICATION FORM: POST DISCHARGE Addendum to original discharge summary date: ____ Late entry note date: __ DATE: 12/23/19 ATTN:Beverly Dickson Please exercise your independent, professional judgment in responding to the clarification form. Clinical indicators are provided on the bottom of this form for your review Can you please further clarify the specificity of Mediastinal Mass? Mediastinal Mass Please check appropriate box(s): [ ] Neoplastic mediastinal mass [ x] Mediastinal mass Unspecified [ ] Other diagnosis please specify [ ] Unable to determine In addition, please specify: Present on Admission (POA): [ ] Yes [ ] No [ ] Unable to determine For continuity of documentation, please document condition throughout progress notes and discharge summary. Thank You. CLINICAL INDICATORS - SIGNS / SYMPTOMS / LABS CT Dissection 27- 2.5 cm anterior mediastinal mass. Possibility of neoplasm cannot be excluded Consult Dr. Almaguer 12/19 pg2- Anterior mediastinal mass, possibility neoplastic that may require further work up PN 12/21 Dr. Almaguer- Anterior mediastinal mass DS pg.1- Atypical Chest Pain RISK FACTORS HTN- and P pg.1 Hx of thyroid cancer- H and P pg.1 Nonischemic cardiomyopathy- H and P pg.1 Atypical Chest Pain- DS pg.1 TREATMENTS: CT Dissection 12/18 Chest X ray 12/18 IV fluids- MAR Pulmonary Consult Dr. Almaguer 12/19 [employer] Medical Staff Credentialing Coordinator Crystal Reports Winform Viewer (This form is maintained as a part of the permanent medical record) 2014 [employer]. All Rights Reserved [email or web address]
--- NOTE | 2019-12-26 16:38 | EKG ---
Test Reason : Blood Pressure : / mmHG Vent. Rate : 081 BPM Atrial Rate : 081 BPM P-R Int : 154 ms QRS Dur : 086 ms QT Int : 414 ms P-R-T Axes : 054 025 020 degrees QTc Int : 480 ms Sinus rhythm with occasional Premature ventricular complexes Otherwise normal ECG Confirmed by ROCKY PEARCE ([id number]), editor map HUSSEIN MALDONADO ([id number]) on 12/26/2019 4:37:51 PM Referred By: Confirmed By:ROCKY PEARCE
--- NOTE | 2019-12-26 16:38 | EKG ---
Test Reason : Blood Pressure : / mmHG Vent. Rate : 080 BPM Atrial Rate : 080 BPM P-R Int : 000 ms QRS Dur : 082 ms QT Int : 388 ms P-R-T Axes : 000 139 134 degrees QTc Int : 447 ms Normal sinus rhythm Left posterior fascicular block Abnormal ECG Poor anterior R wave progression Confirmed by ROCKY PEARCE ([id number]), newspaper managing editor HUSSEIN MALDONADO ([id number]) on 12/26/2019 4:37:37 PM Referred By: Confirmed By:ROCKY PEARCE
== END 2019-12-21 18:30 | disposition home or self-care (01) | DRG 286 ==
LOC: ERS 21:04 → CCU 12-19 01:45 → 2NO 12-19 20:14
PROVIDERS: ADMIT Emergency Medicine; ATTEND Emergency Medicine
PROC: 4A023N7 Measurement of Cardiac Sampling and Pressure, Left Heart, Percutaneous Approach (ICD-10-PCS; principal; 2019-12-21)
PROC: B2151ZZ Fluoroscopy of Left Heart using Low Osmolar Contrast (ICD-10-PCS; 2019-12-21)
PROC: B2111ZZ Fluoroscopy of Multiple Coronary Arteries using Low Osmolar Contrast (ICD-10-PCS; 2019-12-21)
DX: R07.89 Other chest pain (principal); J98.59 Other diseases of mediastinum, not elsewhere classified; I42.8 Other cardiomyopathies; J84.9 Interstitial pulmonary disease, unspecified; Z68.41 Body mass index [BMI] 40.0-44.9, adult; Z89.611 Acquired absence of right leg above knee; E87.6 Hypokalemia; E83.42 Hypomagnesemia; E03.9 Hypothyroidism, unspecified; F41.9 Anxiety disorder, unspecified; F31.9 Bipolar disorder, unspecified; I10 Essential (primary) hypertension; K58.9 Irritable bowel syndrome, unspecified; J45.909 Unspecified asthma, uncomplicated; I27.20 Pulmonary hypertension, unspecified; E66.01 Morbid (severe) obesity due to excess calories; Z88.0 Allergy status to penicillin; Z91.012 Allergy to eggs; Z90.49 Acquired absence of other specified parts of digestive tract; Z88.5 Allergy status to narcotic agent; Z88.2 Allergy status to sulfonamides; Z91.018 Allergy to other foods; Z88.1 Allergy status to other antibiotic agents; Z79.890 Hormone replacement therapy; Z79.899 Other long term (current) drug therapy; Z89.612 Acquired absence of left leg above knee
CPT/HCPCS: 36415; 36416; 71045; 71275; 72191; 74175; 76942; 80048; 80053; 80061; 82550; 83690; 83735; 84443; 84484; 85025; 85379; 93005; 93010; 93458; 94760; 96365; 96366; 96372; 96375; 96376; 99152; 99153; C1760; C1769; J0360; J1644; J1650; J1885; J2001; J2250; J2405; J3010; J3475; J3490; Q9967

== ENCOUNTER 2020-07-26 08:35 | Day surgery (SDC) | payer MEDICARE, MEDICAID ==
[2020-07-25 14:59] VITALS: BMI 44.6
[2020-07-26] MEDS ORDERED: PROPOFOL 200 MG/20 ML VIAL ONE (08:54)
[2020-07-26] MEDS ORDERED: Levofloxacin 500 mg/D5W 100 ml Premix Bag ONE (09:02)
[2020-07-26] MEDS ORDERED: Ondansetron PF 4 MG/2 ML Vial ONE (10:08)
[2020-07-26] MEDS ORDERED: Bupivacaine 0.25% HCL 30 ML VIAL ONE (10:09)
[2020-07-26] MEDS ORDERED: Lidocaine 1% w/Epinephrine 1:100K 20 ML VIAL ONE (10:09)
[2020-07-26] MEDS ORDERED: Propofol 1,000 MG/100 ML VIAL IV ONE (10:12)
[2020-07-26] MEDS ORDERED: Midazolam HCl 2 mg/2 ml Vial ONE ×2 (10:12)
[2020-07-26] MEDS ORDERED: Fentanyl 100 MCG/2 ML VIAL ONE ×2 (10:15→11:25)
--- NOTE | 2020-07-26 11:39 | RAD ---
XR Chest 1 View Portable HISTORY: Mediport placement COMPARISON: 12/18/2019 FINDINGS: There has been interval placement of a right sided Port-A-Cath with tip in the projection of the SVC. The heart size is normal. The lungs are well expanded without focal areas of consolidation, pneumothorax or pleural effusions. There are degenerative changes in the spine. IMPRESSION: No radiographic evidence of acute cardiopulmonary process.
[2020-07-26] MEDS ORDERED: HYDROcodone/Acetaminophen 5/325 mg Tablet ONE (11:58)
--- NOTE | 2020-07-27 18:58 | OP ---
DATE OF PROCEDURE: 07/26/2020 PREOPERATIVE DIAGNOSIS: Myasthenia gravis. POSTOPERATIVE DIAGNOSIS: Myasthenia gravis. PROCEDURE PERFORMED: Tunneled central line, subcutaneous port (MediPort CT injectable). ANESTHESIA: TIVA local. ESTIMATED BLOOD LOSS: Minimal. COMPLICATIONS: None. SPECIMEN: None. FINDINGS: The tip of the catheter is at the atriocaval junction. DESCRIPTION OF PROCEDURE: The patient was taken to the operating room and laid supine on the operating room table. After sedation was obtained, bilateral neck and chest were prepped and draped in a sterile fashion. Local anesthetic infiltrated over the right internal jugular vein. The internal jugular vein was cannulated using a 22-gauge Finder needle followed by Seldinger needle. Wire was passed into the superior vena cava under fluoro guidance. A small dhruv was made at the wire entrance site. A separate 3 cm incision was made in the right upper chest. Subcutaneous pocket made below the lower incision, tubing for the MediPort tunneled from the inferior to superior incision. An introducer sheath was placed over the wire into the superior vena cava under fluoro guidance. The end of the catheter sewed into the sheath. The sheath was peeled away. The tip of the catheter is at the atriocaval junction. The MediPort tubing was cut to fit the MediPort at the lower incision, connected to the MediPort. The MediPort was sewn to the chest wall in the subcutaneous pocket using Prolene. The wounds were irrigated and closed using 3-0 Vicryl, 4-0 Monocryl, and Dermabond. The MediPort was accessed, it withdraws blood, and it was flushed with a heparin flush. The patient was sent to Recovery in stable condition. All instrument counts, needle counts, lap counts were correct. Job ID: [id number]
== END 2020-07-26 12:50 | disposition home or self-care (01) ==
LOC: SDC 08:35
PROVIDERS: ATTEND Surgery
PROC: 02HV33Z Insertion of Infusion Device into Superior Vena Cava, Percutaneous Approach (ICD-10-PCS; principal; 2020-07-26)
DX: G70.00 Myasthenia gravis without (acute) exacerbation (principal); I10 Essential (primary) hypertension; F41.9 Anxiety disorder, unspecified; F31.9 Bipolar disorder, unspecified; E89.0 Postprocedural hypothyroidism; K58.9 Irritable bowel syndrome, unspecified; R45.851 Suicidal ideations; Z79.82 Long term (current) use of aspirin; Z79.899 Other long term (current) drug therapy; Z87.891 Personal history of nicotine dependence; Z88.0 Allergy status to penicillin; Z88.1 Allergy status to other antibiotic agents; Z88.2 Allergy status to sulfonamides; Z88.5 Allergy status to narcotic agent; Z88.8 Allergy status to other drugs, medicaments and biological substances; Z91.010 Allergy to peanuts; Z91.012 Allergy to eggs; Z91.018 Allergy to other foods
CPT/HCPCS: 71045; J1642; J1956; J2250; J2405; J2704; J3010; S0020

== ENCOUNTER 2020-09-20 19:15 | Emergency (ER) | payer MEDICARE, MEDICAID ==
--- NOTE | 2020-09-20 21:24 | CT ---
CT head noncontrast HISTORY: Headache. Hypertension. COMPARISON: 10/06/2018. FINDINGS: There is no evidence of acute intracranial hemorrhage or infarct. Mild chronic ischemic sma ll vessel disease. Physiologic calcification at the left basal ganglia is stable. There is no mass effect or shift of midline structures. Hyperostosis frontalis interna is again demonstrated. Postoperative changes of the maxillary sinuses. IMPRESSION : No acute intracranial abnormalities are demonstrated.
--- NOTE | 2020-09-20 21:26 | RAD ---
Chest one view HISTORY: Chest pain. COMPARISON: 07/26/2020. FINDINGS: Cardiac silhouette and pulmonary vasculature are unremarkable. Mediastinum is midline with right internal jugular Port-A-Cath in place. Pulmonary vasculature upper limits of normal. No confluent airspace consolidation or evidence of pneu mothorax. Mild diffuse reticulonodular interstitial prominence is unchanged. IMPRESSION : Chronic-type findings are stable. No active cardiopulmonary abnormalities are demonstrated.
[2020-09-20 21:50] LABS: ALT (SGPT) 13 U/L (8-55); AST (SGOT) 31 U/L (5-34); Albumin 3.2 g/dL (3.4-4.8); Alkaline Phosphatase 110 U/L (40-110); Anion Gap 16 mmol/L (10-20); BUN (Urea Nitrogen) 14 mg/dL (9.8-20.1); Bilirubin, Total 0.2 mg/dL (0.2-1.2); Calc. Creatinine Clearance 0 mL/min (70-130); Calcium 7.8 mg/dL (7.8-10.44); Carbon Dioxide 24 mmol/L (23-31); Chloride 98 mmol/L (98-107); Estimated GFR-MDRD 72; Globulin 5.1 g/dL (2.4-3.5); Glucose 105 mg/dL (80-115); Magnesium 1.4 mg/dL (1.6-2.6); Potassium 3.4 mmol/L (3.5-5.1); Protein, Total 8.3 g/dL (6.0-8.3); Sodium 135 mmol/L (136-145)
[2020-09-20 21:58] LABS: Bacteria/HPF None Seen HPF (None Seen); Bilirubin Negative (Negative); Blood, Urine Negative (Negative); Clarity Clear (Clear); Glucose, Urine (Dipstick) Normal (Negative); Ketone, Urine Negative (Negative); Leukocyte 25 Leu/uL (Negative); Nitrite Negative (Negative); Protein, Urine (Dipstick) Negative (Neg-Trace); RBC/HPF 0-3 HPF (0-3); Specific Gravity, Urine 1.007 (1.002-1.036); Squamous Epithelial 0-3 HPF (0-3); Urobilinogen Normal mg/dL (Less than 2); WBC/HPF 0-3 HPF (0-3)
[2020-09-20] MEDS ORDERED: Ketorolac Tromethamine 30 MG/ML VIAL ONE (22:19)
[2020-09-20] MEDS ORDERED: Metoclopramide HCl 10 MG/2 ML VIAL ONE ×2 (22:19→22:23)
[2020-09-20] MEDS ORDERED: diphenhydrAMINE 50 MG/ML VIAL ONE (22:19)
[2020-09-20 22:35] LABS: #Basophils 0.1 thou/uL (0.0-0.2); #Eosinphils 0.1 thou/uL (0.0-0.7); #Lymphocytes 2.1 thou/uL (1.20-3.40); #Monocytes 0.7 thou/uL (0.11-0.59); #Neutrophils 4.9 thou/uL (1.40-6.50); %Basophils 0.9 % (0.0-1.0); %Eosinophils 0.8 % (0.0-10.0); %Lymphocytes 26.2 % (21.0-51.0); %Monocytes 9.4 % (0.0-10.0); %Neutrophils 62.7 % (42.0-75.0); Hemoglobin 11.9 g/dL (12.0-16.0); Mean Corpuscular HGB CONC 35.4 g/dL (32.0-36.0); Mean Corpuscular Hemoglobin 33.9 pg (27.0-31.0); Mean Corpuscular Volume 95.9 fL (78.0-98.0); Mean Platelet Volume 7.8 fL (7.4-10.4); Platelet Count 210 thou/uL (130-400); RBC Distribution Width 12.8 % (11.5-14.5); Red Blood Cell (RBC) Count 3.51 mill/uL (4.20-5.40); White Blood Cell (WBC) Count 7.9 thou/uL (4.8-10.8)
== END 2020-09-20 23:50 | disposition home or self-care (01) ==
LOC: ERS 19:15
DX: I16.0 Hypertensive urgency (principal); I10 Essential (primary) hypertension; J45.909 Unspecified asthma, uncomplicated; F41.9 Anxiety disorder, unspecified; F31.9 Bipolar disorder, unspecified; Z79.899 Other long term (current) drug therapy
CPT/HCPCS: 36415; 70450; 71045; 80053; 81003; 81015; 83735; 84484; 85025; 96372; J1200; J1885; J2765

== ENCOUNTER 2020-10-30 14:10 | Inpatient (IN) | payer MEDICARE, MEDICAID ==
[2020-10-30 15:25] LABS: #Basophils 0.1 thou/uL (0.0-0.2); #Eosinphils 0.1 thou/uL (0.0-0.7); #Lymphocytes 1.6 thou/uL (1.20-3.40); #Monocytes 0.8 thou/uL (0.11-0.59); #Neutrophils 5.2 thou/uL (1.40-6.50); %Basophils 0.8 % (0.0-1.0); %Lymphocytes 21.1 % (21.0-51.0); %Monocytes 10.4 % (0.0-10.0); %Neutrophils 66.7 % (42.0-75.0); Hemoglobin 11.4 g/dL (12.0-16.0); Mean Corpuscular HGB CONC 34.4 g/dL (32.0-36.0); Mean Corpuscular Hemoglobin 32.5 pg (27.0-31.0); Mean Corpuscular Volume 94.3 fL (78.0-98.0); Mean Platelet Volume 8.4 fL (7.4-10.4); Platelet Count 191 thou/uL (130-400); RBC Distribution Width 11.8 % (11.5-14.5); Red Blood Cell (RBC) Count 3.51 mill/uL (4.20-5.40); White Blood Cell (WBC) Count 7.8 thou/uL (4.8-10.8)
--- NOTE | 2020-10-30 15:31 | RAD ---
XR Chest 1 View Portable History: Chest pain Comparison: Radiograph September 20, 2020 Findings: Port catheter tip poorly seen although likely at the mid SVC. Pannus creates an extra Mach band along the right and left hemithoraces in the similar shape. No confluent airspace consolidation, pneumothorax or effusion. Impression: No acute intrathoracic abnormality.
[2020-10-30 15:38] LABS: Bilirubin Negative (Negative); Blood, Urine Negative (Negative); Clarity Clear (Clear); Glucose, Urine (Dipstick) Normal (Negative); Ketone, Urine Negative (Negative); Leukocyte Negative Leu/uL (Negative); Nitrite Negative (Negative); Protein, Urine (Dipstick) Negative (Neg-Trace); Specific Gravity, Urine 1.011 (1.002-1.036); Urobilinogen Normal mg/dL (Less than 2); pH, Urine 7.5 (5.0-9.0)
[2020-10-30 15:58] LABS: ALT (SGPT) 17 U/L (8-55); AST (SGOT) 20 U/L (5-34); Albumin 3.5 g/dL (3.4-4.8); Alkaline Phosphatase 83 U/L (40-110); Anion Gap 14 mmol/L (10-20); BUN (Urea Nitrogen) 13 mg/dL (9.8-20.1); Bilirubin, Total Less than 0.2 mg/dL (0.2-1.2); Calc. Creatinine Clearance 0 mL/min (70-130); Calcium 7.9 mg/dL (7.8-10.44); Carbon Dioxide 29 mmol/L (23-31); Chloride 101 mmol/L (98-107); Globulin 2.1 g/dL (2.4-3.5); Glucose 124 mg/dL (80-115); Potassium 3.2 mmol/L (3.5-5.1); Protein, Total 5.6 g/dL (6.0-8.3); Sodium 141 mmol/L (136-145)
[2020-10-30] MEDS ORDERED: Potassium Chloride 20 MEQ in Premix Bag 1 BAG IVPB SCH (16:15)
[2020-10-30 16:22] LABS: SARS-CoV-2 NAA Rapid Test DETECTED (NotDetected)
[2020-10-30 17:36] LABS: Actual Bicarbonate (HCO3a) 26.6 mEq/L (22-28); Analyzer IN Cardio ER; Base Excess (BEa) 3.5 mEq/L (-2.0 to +3.0); CO2 Tension 35.1 mmHg (35.0-45.0); Calcium, Ionized (arterial) 1.05 mmol/L (1.12-1.30); Carboxyhemoglobin (COHb) 0.3 gm% (0.0-3.0); Hemoglobin (Hb) 11.5 g/dL (12.0-16.0); O2 Tension (PaO2), arterial 94.1 mmHg (> 80.0); Potassium - ABG Lab 3.31 mmol/L (3.70-5.30); Puncture Site LRA
[2020-10-30 17:37] LABS: ALV-art Gradient 11.755 mmHg (0-20)
[2020-10-30 18:25] LABS: Lactic Acid 1.3 mmol/L (0.5-2.2)
--- NOTE | 2020-10-30 19:20 | PDOC.FPRHP ---
- History of Present Illness Chief Complaint: SOB History of Present Illness: 65 yo F with PMH of myasthenia gravis s/p removal thymoma, asthma, HTN, CHF presents to the ED for for worsening SOB of the past day and cough. Associated sx include feeling feverish, rhinorrhea, pharyngitis, body aches, diffuse weakness, nausea and diarrhea. She was recently hospitalized for a myasthenia gravis exacerbation and reports that this feels similar as she had cough and SOB at that time. She also recently received course of outpatient plasma for the myasthenia gravis, which she reports was completed yesterday. Denies loss of sense of taste or smell. She states she called her oncologist and was told to come in to be evaluated, she had a recent L sided central line that was removed, and they were concerned for infection. In the ED: ABG: pH of 7.50, PaO2 94, Base excess 3.5. NIF of -30. Hypokalemia of 3.2. Lactic acid 2.4. Covid positive. CXR showed no airspace disease. Administered meds: Proventil HFA, Benadryl 50 mg, 20 meq K, 1 L NS - Allergies/Adverse Reactions Allergies Allergy/AdvReac Type Severity Reaction Status Date / Time egg Allergy Severe TROUBLE Verified 12/19/19 02:17 BREATHING peanut Allergy Severe NAUSEA/TROUBLE Verified 12/19/19 02:17 BREATHING rice Allergy Severe NAUSEA/TROUBLE Verified 12/19/19 02:17 BREATHING cephalexin monohydrate Allergy HIVES, Verified 12/19/19 02:17 [From Keflex] BREATHING TROUBLE morphine Allergy SWELLING, Verified 12/19/19 02:17 HIVES Penicillins Allergy Hives Verified 12/19/19 02:17 Sulfa (Sulfonamide Allergy Hives Verified 12/19/19 02:17 Antibiotics) midazolam [From Versed] AdvReac Intermediate ELEVATED Verified 07/25/20 14:53 BP, CHILLS, NAUSEA/VOMITING - Home Medications Medication Instructions Recorded Confirmed Type Aspirin [Low Dose Aspirin EC] 81 mg PO DAILY 08/31/14 10/31/20 History Bupropion HCl [buPROPion HCl XL] 300 mg PO QAM 08/31/14 10/31/20 History Levothyroxine Sodium 200 mcg PO ASDIR 08/31/14 10/31/20 History Lorazepam [Ativan] 0.5 mg PO BID 08/31/14 10/31/20 History Multivitamin [Multi-Vitamin Daily] 1 tablet PO DAILY 08/31/14 10/31/20 History Potassium Chloride 20 meq PO TID 08/31/14 10/31/20 History traZODone HCl 200 mg PO HS 08/31/14 10/31/20 History Dicyclomine HCl 20 mg PO DAILY 12/19/19 10/31/20 History SUMAtriptan Succinate [Imitrex] 100 mg PO Q12HR PRN 12/19/19 10/31/20 History Sacubitril/Valsartan 49/51 1 each PO BID 12/19/19 10/31/20 History [Entresto 49 mg-51 mg Tablet] busPIRone HCl [Buspirone HCl] 10 mg PO TID 12/19/19 10/31/20 History carBAMazepine [Carbamazepine] 2 tab PO BID 12/19/19 10/31/20 History Pantoprazole [Protonix] 40 mg PO DAILY #30 tab 12/21/19 10/31/20 Rx Metoprolol Tartrate [Lopressor] 25 mg PO BID 07/25/20 10/31/20 History Pyridostigmine Theodore [Mestinon] 60 mg PO TID 07/25/20 10/31/20 History Diclofenac Sodium [Voltaren] 2 gm TP QID 10/31/20 10/31/20 History Ondansetron HCl [Zofran] 4 mg PO BID 10/31/20 10/31/20 History Prochlorperazine Maleate 10 mg PO Q6HR PRN 10/31/20 10/31/20 History [Compazine] Sacubitril/Valsartan [Entresto 97 1 each PO BID 10/31/20 10/31/20 History mg-103 mg Tablet] - History PMHx: ILD, pleurisy, CHF, thyroid cancer s/p removal, thymoma s/p removal, my asthenia gravis, anxiety, depression, bipolar, IBS PSHx: cholecystectomy, thyroidectomy, thymectomy, uterine ablation, bilateral total knee repair, sinus sx, cardiac cath FHx: CHF Social: history of 4 years of smoking 1-2 cigarettes per day > 35 years ago, denies alcohol or drug use - Review of Systems General: reports: fever/chills, other (Headache). denies: weight/appetite/sleep changes Eyes: reports: other (reports diplopia when she is tired and current diplopia) ENT: reports: rhinorrhea Respiratory: reports: cough, congestion, shortness of breath Cardiovascular: denies: chest pain, palpitation, edema Gastrointestinal: reports: nausea, diarrhea. denies: vomiting, constipation, abdominal pain, GI bleeding Genitourinary: denies: incontinence, dysuria Skin: reports: rashes, itching Musculoskeletal: denies: pain, tenderness, arthritis/arthralgias Neurological: reports: weakness. denies: numbness Psychological: reports: anxiety, depression - Vital signs BP: 159/64 HR: 85 RR: 20 Tmax: 99.3 Pox: 100% on RA Wt: 125 kg - Physical Exam Constitutional: NAD, awake, alert and oriented, other (obese) HEENT: normocephalic and atraumatic, PERRLA, EOMI, conjunctiva clear, no scleral icterus, grossly normal hearing, MMM, oropharynx clear, other (dentures) Neck: supple, trachea midline Heart: RRR, normal S1/S2, no murmurs/rubs/gallops, pulses present, no edema Lungs: no retractions, other (expiratory wheezing, breath sounds diminished at bases, pt tachypneic) Abdomen: soft, non-tender, bowel sounds present Musculoskeletal: normal structure, ROM grossly normal, other Neurological: other (5/5 strength bilateral upper and lower extremities) Skin: other (erythematous rash with excoriations over chest, arms, lower abdom en) Heme/Lymphatic: no unusual bruising or bleeding, no purpura Psychiatric: normal mood and affect, good judgment and insight FMR H&P: Results - Labs Result Diagrams: 10/31/20 04:40 10/31/20 04:40 Lab results: WBC 7.8 thou/uL (4.8-10.8) 10/30/20 15:16 Hgb 11.4 g/dL (12.0-16.0) L 10/30/20 15:16 Hct 33.1 % (36.0-47.0) L 10/30/20 15:16 MCV 94.3 fL (78.0-98.0) 10/30/20 15:16 Plt Count 191 thou/uL (130-400) 10/30/20 15:16 Neutrophils % 66.7 % (42.0-75.0) 10/30/20 15:16 ABG pH 7.50 (7.35-7.45) H 10/30/20 17:16 ABG pCO2 35.1 mmHg (35.0-45.0) 10/30/20 17:16 ABG pO2 94.1 mmHg (> 80.0) H 10/30/20 17:16 Sodium 141 mmol/L (136-145) 10/30/20 15:16 Potassium 3.2 mmol/L (3.5-5.1) L 10/30/20 15:16 Chloride 101 mmol/L (98-107) 10/30/20 15:16 Carbon Dioxide 29 mmol/L (23-31) 10/30/20 15:16 BUN 13 mg/dL (9.8-20.1) 10/30/20 15:16 Creatinine 0.72 mg/dL (0.6-1.1) 10/30/20 15:16 Glucose 124 mg/dL (80-115) H 10/30/20 15:16 Lactic Acid 1.3 mmol/L (0.5-2.2) 10/30/20 17:57 Calcium 7.9 mg/dL (7.8-10.44) 10/30/20 15:16 Total Bilirubin Less than 0.2 mg/dL (0.2-1.2) L 10/30/20 15:16 AST 20 U/L (5-34) 10/30/20 15:16 ALT 17 U/L (8-55) 10/30/20 15:16 Alkaline Phosphatase 83 U/L (40-110) 10/30/20 15:16 Serum Total Protein 5.6 g/dL (6.0-8.3) L 10/30/20 15:16 Albumin 3.5 g/dL (3.4-4.8) 10/30/20 15:16 Urine Ketones Negative mg/dL (Negative) 10/30/20 15:21 Urine Blood Negative (Negative) 10/30/20 15:21 Urine Nitrite Negative (Negative) 10/30/20 15:21 Ur Leukocyte Esterase Negative Kim/uL (Negative) 10/30/20 15:21 - EKG Interpretation EKG: NSR - Radiology Interpretation Chest x-ray Status: image reviewed by me, report reviewed by me (No acute findings) FMR H&P: A/P - Plan Myasthenia Gravis, Concern for MG Crisis -MG exacerbation, may have been caused by Covid infection -Admit to ICU for monitoring -Decadron 4 mg -q2h NIF and Forced vital capacity, if starting to decrease consider elective intubation. NIF in ED was -30. -Consult neurology in the AM, consider IVIG -Speech, PT/OT consulted Covid Positive -No pneumonia on CXR, procal negative -Virus may have exacerbated her MG -Decadron 4 mg -Covid labs ordered -Consider convalescent plasma and remdesivir in AM -on prophylactic lovenox Thymoma s/p Thymectomy -Rt sided port, pt reports she has not been on chemotherapy for 1 month Asthma -q4h KEZIA albuterol MDI, q2h PRN Hypokalemia -monitor and replete as necessary -continue home regimen of potassium Pruritic Erythematous Rash -benadryl 50 q6h PRN -hydroxyzine PRN -uncertain of cause, pt has no airway compromise, improved with benadryl Lactic acidosis, resolved - s/p 1 L NS in ED - LA of 2.4 on arrival, improved to 1.3 after fluids Hx of ILD, pleurisy per patient -aware HTN -home meds Hx CHF -Per pt report, No echo at our hospital, PCP Suzie -continue home meds Anxiety, Depression, Bipolar -Follows at [facility], continue home meds Diet: HH DVT ppx: lovenox GI Ppx: protonix Code: full IVF: LR @ 125 PCP: Dr. Sanon @ [employer] Dispo: Admit to CCU, monitor closely for signs of respiratory compromise. Consult neurology in the AM. Mercy Adams MD PGY3 FMR H&P: Upper Level - Plan Date/Time: 10/30/20 1910 I, [], have evaluated this patient and agree with findings/plan as outlined by internal combustion engine inspector resident. Pertinent changes/additions are listed here. Addendum - Attending - Attending Attestation Date/Time: 10/31/20 1302 I personally evaluated the patient and discussed the management with the team on 10/30. I agree with the History, Examination, Assessment and Plan documented above with any addition or exceptions noted below. Unfortunately complicated case with possible myasthenic crisis, or impending, with covid+. Acute resp failure 2/2 above -NIF/VC if able q4h hours, discussed potential elective intubuation -ABG if the above are downtrending -neuro consult in AM sepsis 2/2 covid vs CLABSI (less likely, CVC removed 1-2 days ago) -dexamethasone -additional therapies per day team/consultants Observe o/n in the ICU, hopeful xfer to floor tomorrow.
[2020-10-30] MEDS ORDERED: diphenhydrAMINE 25 MG CAP ONE ×2 (20:53→21:48)
[2020-10-30] MEDS ORDERED: Enoxaparin Sodium 40 MG/0.4 ML SYRINGE SC SCH ×2 (21:04→21:30)
[2020-10-30] MEDS ORDERED: Acetaminophen 325 MG TAB PO PRN (21:04)
[2020-10-30] MEDS ORDERED: guaiFENesin 200 MG TAB PO PRN (21:14)
[2020-10-30] MEDS ORDERED: Albuterol 200 PUFF (6.7GM INHALER) ONE (21:48)
[2020-10-30 21:53] LABS: PTT 24.2 sec (22.9-36.1); Prothrombin Time 13.2 sec (12.0-14.7)
[2020-10-30 22:07] LABS: CRP (Inflammatory) 0.9 mg/dL (= or < 0.5)
[2020-10-30 22:22] LABS: Troponin I Less than 0.010 ng/mL (< 0.028)
[2020-10-30 22:23] LABS: Ferritin 32.43 ng/mL (10-291)
[2020-10-30] MEDS: Albuterol Sulfate 2.5 mg/3 ml Neb NEB SCH (22:39)
[2020-10-30] MEDS: hydrOXYzine 25 MG TAB PO PRN (23:04)
[2020-10-30] MEDS: Cepastat Lozenges 1 LOZ PO PRN (23:05)
[2020-10-30] MEDS: diphenhydrAMINE 50 MG CAP PO PRN (23:08)
[2020-10-30] MEDS: Lactated Ringer's 1,000 ML IV SCH (23:09)
[2020-10-31] MEDS: Albuterol Sulfate 2.5 mg/3 ml Neb NEB SCH ×2 (00:16→02:19)
[2020-10-31 00:40] LABS: HBSAg Index 0.15 S/CO (0-0.99); HIV (1/2) Antibody/Antigen Non-Reactive (NonReactive); HIV 1/2 INDEX 0.12 S/CO (<1.00); Hep B Surf Ag Non-Reactive S/CO (NonReactive); Hep C IgG Ab Non-Reactive (NonReactive); Hep C Index 0.07 S/CO (0-0.79)
[2020-10-31 01:23] LABS: Anion Gap 13 mmol/L (10-20); BUN (Urea Nitrogen) 9 mg/dL (9.8-20.1); Calc. Creatinine Clearance 0 mL/min (70-130); Calcium 7.5 mg/dL (7.8-10.44); Carbon Dioxide 28 mmol/L (23-31); Chloride 104 mmol/L (98-107); Glucose 100 mg/dL (80-115); Sodium 142 mmol/L (136-145)
[2020-10-31 01:30] LABS: Potassium 2.9 mmol/L (3.5-5.1)
[2020-10-31] MEDS ORDERED: Potassium Chloride 40 MEQ in Premix Bag 1 BAG IVPB SCH (02:15)
[2020-10-31] MEDS ORDERED: Potassium Chloride 20 MEQ TAB PO SCH (02:15)
[2020-10-31] MEDS ORDERED: Albuterol 200 PUFF (6.7GM INHALER) INH PRN (04:25)
[2020-10-31] MEDS ORDERED: Non-Formulary Item 1 EACH (Levothyroxine Sodium [Levothyroxine Sodium] 200 MCG Tablet) PO SCH (04:45)
[2020-10-31 04:56] LABS: #Eosinphils 0.1 thou/uL (0.0-0.7); #Lymphocytes 1.3 thou/uL (1.20-3.40); #Monocytes 0.7 thou/uL (0.11-0.59); %Basophils 0.6 % (0.0-1.0); %Eosinophils 1.5 % (0.0-10.0); %Lymphocytes 21.1 % (21.0-51.0); %Monocytes 11.4 % (0.0-10.0); %Neutrophils 65.5 % (42.0-75.0); Hemoglobin 10.3 g/dL (12.0-16.0); Mean Corpuscular HGB CONC 32.6 g/dL (32.0-36.0); Mean Corpuscular Hemoglobin 30.5 pg (27.0-31.0); Mean Corpuscular Volume 93.4 fL (78.0-98.0); Mean Platelet Volume 8.2 fL (7.4-10.4); Platelet Count 176 thou/uL (130-400); RBC Distribution Width 11.7 % (11.5-14.5); Red Blood Cell (RBC) Count 3.37 mill/uL (4.20-5.40); White Blood Cell (WBC) Count 6.1 thou/uL (4.8-10.8)
[2020-10-31] MEDS: diphenhydrAMINE 50 MG CAP PO PRN (05:06)
[2020-10-31 05:23] LABS: Anion Gap 12 mmol/L (10-20); BUN (Urea Nitrogen) 8 mg/dL (9.8-20.1); CK (CPK) 78 U/L (29-168); Calc. Creatinine Clearance 175 mL/min (70-130); Calcium 7.4 mg/dL (7.8-10.44); Carbon Dioxide 29 mmol/L (23-31); Chloride 105 mmol/L (98-107); Glucose 94 mg/dL (80-115); Potassium 3.5 mmol/L (3.5-5.1); Sodium 142 mmol/L (136-145)
[2020-10-31] MEDS: Lactated Ringer's 1,000 ML IV SCH (05:29)
[2020-10-31] MEDS: hydrOXYzine 25 MG TAB PO PRN ×3 (05:29→20:41)
[2020-10-31 06:08] VITALS: BMI 45.0
[2020-10-31] MEDS ORDERED: Albuterol Sulfate 2.5 mg/3 ml Neb NEB SCH (06:30)
[2020-10-31] MEDS: Albuterol 200 PUFF (6.7GM INHALER) INH SCH ×5 (08:08→22:23)
--- NOTE | 2020-10-31 08:17 | PDOC.FM ---
- Subjective Subjective: No events overnight. Remains off supplemental O2. complaints of diffuse body aches and generalized weakness. Does not feel SOB this morning per say. Does state she has chest pain when coughing or w/ deep inspiration. - Objective Vital Signs & Weight: Vital Signs (12 hours) Temp Pulse Resp Pulse Ox 10/31/20 06:00 98.8 F 10/31/20 03:00 99.6 F 10/31/20 02:19 88 26 H 98 10/31/20 00:16 89 16 96 10/30/20 23:00 99.3 F 97 10/30/20 22:39 67 17 100 Weight Weight 127 kg Most Recent Monitor Data Heart Rate from ECG 82 NIBP 158/87 NIBP BP-Mean 110 Respiration from ECG 20 SpO2 99 I&O: 10/30/20 10/31/20 11/01/20 06:59 06:59 06:59 Intake Total 200 Output Total 700 Balance -500 Result Diagrams: 10/31/20 04:40 10/31/20 04:40 Phys Exam - Physical Examination Constitutional: NAD Appears moderately sick HEENT: moist MMs EOMi Respiratory: wheezing present (few scant expiratory) Cardiovascular: RRR, no significant murmur Gastrointestinal: soft, non-tender, no distention Musculoskeletal: no edema, pulses present Neurological: non-focal, moves all 4 limbs Psychiatric: normal affect, A&O x 3 Skin: no rash, cap refill <2 seconds Dx/Plan - Plan Plan: Myasthenia Gravis -s/p plasma exchange x1 week last week -prednisone 60mg daily -q2h NIF, improving since admission -will consider neuro consult and IVIG if indications of MG exacerbation arise Covid Positive, Hx asthma and interstitial lung disease -satting 100% on RA -CXR clear -albuterol q4hr -prednisone 60mg daily -trending labs - does not appear to be in inflammatory stage Thymoma s/p Thymectomy -Rt sided port Hypokalemia -monitor and replete as necessary -continue home regimen of potassium HTN -home meds Hx CHF -Per pt report, No echo at our hospital, PCP Suzie -continue home meds Anxiety, Depression, Bipolar -Follows at [facility], continue home meds Dispo: I feel the patient's symptoms are more likely related to mild-moderate COVID19 infection rather than a myasthenia gravis exacerbation. Currently from a respiratory standpoint the patient is very stable off any supplemental oxygen and with improving MIPs. She just received a week of plasma exchange for her chronic MG treatment last week. I do not feel she warrants ICU placement at this time and will plan to transition to IMCU vs COVID unit later today as long as she remains stable. Pt is at higher risk for worsening respiratory status in the setting of COVID+ with obesity, asthma, and interstitial lung disease hx.
[2020-10-31 08:24] LABS: Actual Bicarbonate (HCO3a) 27.4 mEq/L (22-28); Base Excess (BEa) 4.1 mEq/L (-2.0 to +3.0); CO2 Tension 36.3 mmHg (35.0-45.0); Calcium, Ionized (arterial) 1.04 mmol/L (1.12-1.30); Carboxyhemoglobin (COHb) 0.4 gm% (0.0-3.0); Hemoglobin (Hb) 11.3 g/dL (12.0-16.0); Potassium - ABG Lab 3.39 mmol/L (3.70-5.30)
[2020-10-31 08:26] LABS: O2 Tension (PaO2), arterial 42.8 mmHg (> 80.0); Puncture Site RBA
[2020-10-31 08:27] LABS: ALV-art Gradient 61.555 mmHg (0-20)
[2020-10-31 08:36] LABS: Actual Bicarbonate (HCO3a) 24.2 mEq/L (22-28); Base Excess (BEa) 2.1 mEq/L (-2.0 to +3.0); CO2 Tension 29.7 mmHg (35.0-45.0); Calcium, Ionized (arterial) 1.03 mmol/L (1.12-1.30); Carboxyhemoglobin (COHb) 0.5 gm% (0.0-3.0); Hemoglobin (Hb) 11.1 g/dL (12.0-16.0); Potassium - ABG Lab 3.34 mmol/L (3.70-5.30); pH, Arterial 7.53 (7.35-7.45)
[2020-10-31 08:38] LABS: ALV-art Gradient 31.605 mmHg (0-20); Puncture Site RBA
[2020-10-31] MEDS ORDERED: Enoxaparin Sodium 40 MG/0.4 ML SYRINGE SC SCH ×2 (09:00)
[2020-10-31] MEDS ORDERED: Dexamethasone 4 mg/ml Vial SLOW IVP SCH (09:00)
[2020-10-31] MEDS: Ondansetron ODT 4 MG TAB PO SCH ×2 (09:24→20:42)
[2020-10-31] MEDS: Enoxaparin Sodium 40 MG/0.4 ML SYRINGE SC SCH (09:24)
[2020-10-31] MEDS: Metoprolol Tartrate 25 MG TAB PO SCH ×2 (09:24→20:41)
[2020-10-31] MEDS: Aspirin 81 mg Enteric Coated Tablet PO SCH (09:24)
[2020-10-31] MEDS: carBAMazepine 200 MG TAB PO SCH ×2 (09:25→20:41)
[2020-10-31] MEDS: predniSONE 20 MG TAB PO SCH (09:25)
[2020-10-31] MEDS: Dicyclomine 20 MG TAB PO SCH (09:26)
[2020-10-31] MEDS: Bupropion 150 MG XL TAB PO SCH (09:26)
[2020-10-31] MEDS: busPIRone HCl 10 MG TAB PO SCH ×3 (09:26→20:42)
[2020-10-31] MEDS: Pyridostigmine Bromide IR 60 MG TAB PO SCH ×3 (09:26→20:40)
[2020-10-31] MEDS: Potassium Chloride 20 MEQ TAB PO SCH ×3 (09:26→20:40)
[2020-10-31] MEDS: Sacubitril 49 MG/Valsartan 51 MG TABLET PO SCH ×2 (09:30→22:23)
[2020-10-31] MEDS: Acetaminophen 325 MG TAB PO SCH ×4 (10:29→20:41)
[2020-10-31] MEDS: Cepastat Lozenges 1 LOZ PO PRN (18:19)
[2020-11-01] MEDS: Acetaminophen 325 MG TAB PO SCH ×7 (01:18→20:08)
[2020-11-01] MEDS: Albuterol 200 PUFF (6.7GM INHALER) INH SCH ×6 (02:16→22:25)
[2020-11-01] MEDS: Ibuprofen 600 MG TAB PO PRN (03:32)
[2020-11-01 06:26] LABS: #Basophils 0.1 thou/uL (0.0-0.2); #Lymphocytes 0.8 thou/uL (1.20-3.40); #Monocytes 0.6 thou/uL (0.11-0.59); #Neutrophils 6.2 thou/uL (1.40-6.50); %Basophils 0.7 % (0.0-1.0); %Eosinophils 0.6 % (0.0-10.0); %Lymphocytes 10.4 % (21.0-51.0); %Neutrophils 80.3 % (42.0-75.0); Hemoglobin 10.6 g/dL (12.0-16.0); Mean Corpuscular Hemoglobin 33.2 pg (27.0-31.0); Mean Platelet Volume 8.8 fL (7.4-10.4); Platelet Count 157 thou/uL (130-400); RBC Distribution Width 11.6 % (11.5-14.5); Red Blood Cell (RBC) Count 3.18 mill/uL (4.20-5.40); White Blood Cell (WBC) Count 7.8 thou/uL (4.8-10.8)
[2020-11-01 06:45] LABS: Anion Gap 11 mmol/L (10-20); BUN (Urea Nitrogen) 8 mg/dL (9.8-20.1); CK (CPK) 69 U/L (29-168); Calc. Creatinine Clearance 171 mL/min (70-130); Calcium 7.2 mg/dL (7.8-10.44); Carbon Dioxide 31 mmol/L (23-31); Chloride 102 mmol/L (98-107); Glucose 104 mg/dL (80-115); Potassium 3.1 mmol/L (3.5-5.1); Sodium 141 mmol/L (136-145)
--- NOTE | 2020-11-01 08:10 | PDOC.FM ---
- Subjective Subjective: Pt states that she feels worsening malaise and body aches today. Denies feel short of breath but does note she feels like she is working a little harder to breath. She supplied me with her neuro-oncologist number to contact. - Objective Vital Signs & Weight: Vital Signs (12 hours) Temp Pulse Resp BP Pulse Ox 11/01/20 07:45 98.2 F 83 14 150/79 H 99 11/01/20 04:00 98.8 F 91 18 105/65 95 11/01/20 00:00 98.3 F 91 18 146/73 H 99 Weight Weight 122.47 kg Most Recent Monitor Data Heart Rate from ECG 75 NIBP 155/74 NIBP BP-Mean 101 Respiration from ECG 14 SpO2 96 I&O: 10/31/20 11/01/20 11/02/20 06:59 06:59 06:59 Intake Total 200 2345 Output Total 700 3185 Balance -500 -840 Result Diagrams: 11/01/20 06:10 11/01/20 06:10 Phys Exam - Physical Examination Appears to feel unwell Shallow inspirations, mostly clear with slight scattered rales Cardiovascular: RRR, no significant murmur Gastrointestinal: soft, non-tender Musculoskeletal: edema present Neurological: non-focal, moves all 4 limbs Psychiatric: A&O x 3 Deviation from normal: Flat affect Skin: no rash, cap refill <2 seconds Dx/Plan - Plan Plan: Myasthenia Gravis -s/p plasma exchange x1 week last week -prednisone 60mg daily -qshift NIF, improving since admission -will attempt to call patients neuro-oncologist Dr. Rachel Quezada today for additional input Covid Positive, Hx asthma and interstitial lung disease -satting mid to upper 90s% on RA -albuterol q4hr -prednisone 60mg daily -covid labs trending up indicating increasing inflammation Thymoma s/p Thymectomy -Rt sided port Hypokalemia -monitor and replete as necessary -continue home regimen of potassium HTN -home meds Hx CHF -Per pt report, No echo at our hospital, PCP Suzie -continue home meds Anxiety, Depression, Bipolar -Follows at [facility], continue home meds Dispo: Pt remains stable and off supplemental O2. Symptomatically worsening. I feel pt remains at high risk for decompensation as she is in the early stages of her disease and with hx of MG could potentially acutely decompensate.
[2020-11-01] MEDS ORDERED: Potassium Chloride 20 MEQ TAB PO SCH (08:30)
[2020-11-01] MEDS: Ondansetron ODT 4 MG TAB PO SCH ×2 (09:39→20:07)
[2020-11-01] MEDS: busPIRone HCl 10 MG TAB PO SCH ×3 (09:39→20:06)
[2020-11-01] MEDS: Sacubitril 49 MG/Valsartan 51 MG TABLET PO SCH ×2 (09:39→20:06)
[2020-11-01] MEDS: Metoprolol Tartrate 25 MG TAB PO SCH ×2 (09:40→20:07)
[2020-11-01] MEDS: predniSONE 20 MG TAB PO SCH (09:40)
[2020-11-01] MEDS: Dicyclomine 20 MG TAB PO SCH (09:40)
[2020-11-01] MEDS: Aspirin 81 mg Enteric Coated Tablet PO SCH (09:40)
[2020-11-01] MEDS: Pyridostigmine Bromide IR 60 MG TAB PO SCH ×3 (09:40→20:06)
[2020-11-01] MEDS: Bupropion 150 MG XL TAB PO SCH (09:41)
[2020-11-01] MEDS: carBAMazepine 200 MG TAB PO SCH ×2 (09:41→20:07)
[2020-11-01] MEDS: Enoxaparin Sodium 40 MG/0.4 ML SYRINGE SC SCH (09:41)
[2020-11-01] MEDS: Potassium Chloride 20 MEQ TAB PO SCH ×3 (12:00→20:06)
[2020-11-01] MEDS: hydrOXYzine 25 MG TAB PO PRN (20:06)
[2020-11-02] MEDS ORDERED: Promethazine HCl 12.5 MG in Sodium Chloride 0.9% 50 ML IVPB PRN (00:18)
[2020-11-02] MEDS: Acetaminophen 325 MG TAB PO SCH ×4 (01:35→12:58)
[2020-11-02] MEDS: Albuterol 200 PUFF (6.7GM INHALER) INH SCH ×4 (02:17→14:42)
[2020-11-02] MEDS: Ibuprofen 600 MG TAB PO PRN (04:26)
[2020-11-02 06:37] LABS: Band 13 % (5-11); Hemoglobin 10.1 g/dL (12.0-16.0); Lymphocytes 12 % (21-51); MDiff Complete? YES; Mean Corpuscular HGB CONC 34.1 g/dL (32.0-36.0); Mean Corpuscular Hemoglobin 31.9 pg (27.0-31.0); Mean Corpuscular Volume 93.6 fL (78.0-98.0); Mean Platelet Volume 7.9 fL (7.4-10.4); Metamyelocyte 1 % (0-0); Monocytes 16 % (0-10); Myelocyte 1 % (0-0); Neutrophil 57 % (42-75); Platelet Count 158 thou/uL (130-400); RBC Distribution Width 11.8 % (11.5-14.5); Red Blood Cell (RBC) Count 3.15 mill/uL (4.20-5.40); White Blood Cell (WBC) Count 4.3 thou/uL (4.8-10.8)
[2020-11-02 06:38] LABS: Anion Gap 14 mmol/L (10-20); BUN (Urea Nitrogen) 9 mg/dL (9.8-20.1); CK (CPK) 90 U/L (29-168); CRP (Inflammatory) 10.39 mg/dL (= or < 0.5); Calc. Creatinine Clearance 154 mL/min (70-130); Calcium 6.7 mg/dL (7.8-10.44); Carbon Dioxide 27 mmol/L (23-31); Chloride 100 mmol/L (98-107); Glucose 97 mg/dL (80-115); Magnesium 1.2 mg/dL (1.6-2.6); Potassium 3.1 mmol/L (3.5-5.1); Sodium 138 mmol/L (136-145)
--- NOTE | 2020-11-02 07:04 | PDOC.FM ---
- Subjective Subjective: Patient states she is feeling much better today. Was up and awake in bed. States she feels less weak having less body aches. Continues to deny SOB. Continues to have intermittent cough. - Objective Vital Signs & Weight: Vital Signs (12 hours) Temp Pulse Resp BP BP Pulse Ox 11/02/20 06:05 98.8 F 11/02/20 03:52 100.3 F H 85 20 123/64 96 11/02/20 00:00 99.3 F 83 20 123/69 97 11/01/20 20:24 100.7 F H 100 20 144/73 H 100 11/01/20 20:00 96 Weight Weight 122.289 kg Most Recent Monitor Data Heart Rate from ECG 75 NIBP 155/74 NIBP BP-Mean 101 Respiration from ECG 14 SpO2 96 I&O: 11/01/20 11/02/20 11/03/20 06:59 06:59 06:59 Intake Total 2345 1240 Output Total 3185 1200 Balance -840 40 Result Diagrams: 11/02/20 05:55 11/02/20 05:55 Phys Exam - Physical Examination Constitutional: NAD HEENT: moist MMs, sclera anicteric Few basilar rales Cardiovascular: RRR, no significant murmur Gastrointestinal: soft, non-tender, no distention Musculoskeletal: no edema, pulses present Neurological: non-focal, moves all 4 limbs Psychiatric: normal affect, A&O x 3 Skin: no rash, cap refill <2 seconds Dx/Plan - Plan Plan: Myasthenia Gravis -s/p plasma exchange x1 week last week -qshift NIF, improving since admission -discussed case with pt's neuro-onc, Dr. Quezada, suggested they push back their plasma exchange tx as outpt - okay with convalescent plasma tx, was given yesterday Covid Positive, Hx asthma and interstitial lung disease -satting mid to upper 90s% on RA -albuterol q4hr -dex 6mg daily Thymoma s/p Thymectomy -Rt sided port Hypokalemia, Hypocalcemia, Hypomagnesemia -monitor and replete as necessary -continue home regimen of potassium HTN -home meds Hx CHF -Per pt report, No echo at our hospital, PCP Suzie -continue home meds Anxiety, Depression, Bipolar -Follows at [facility], continue home meds Dispo: Pt remains stable and off supplemental O2. States she is feeling much better today. Discussed possibility of DC later today and pt was agreeable and looking forward to that possibility. Will plan for DC today vs tomorrow as long as she continues to symptomatically improve.
[2020-11-02] MEDS ORDERED: Calcium Gluconate 4.6 MEQ in Sodium Chloride 0.9% 100 ML IVPB SCH (07:10)
[2020-11-02] MEDS ORDERED: Magnesium 2 GM/50 ML 2 GM in Premix Bag 1 BAG IVPB SCH (07:15)
[2020-11-02] MEDS ORDERED: Dexamethasone 4 mg/ml Vial SLOW IVP SCH (09:00)
[2020-11-02] MEDS: Dicyclomine 20 MG TAB PO SCH (09:17)
[2020-11-02] MEDS: Potassium Chloride 20 MEQ TAB PO SCH ×2 (09:17→14:18)
[2020-11-02] MEDS: Pyridostigmine Bromide IR 60 MG TAB PO SCH ×2 (09:17→14:18)
[2020-11-02] MEDS: busPIRone HCl 10 MG TAB PO SCH ×2 (09:17→14:18)
[2020-11-02] MEDS: Aspirin 81 mg Enteric Coated Tablet PO SCH (09:17)
[2020-11-02] MEDS: carBAMazepine 200 MG TAB PO SCH (09:17)
[2020-11-02] MEDS: Sacubitril 49 MG/Valsartan 51 MG TABLET PO SCH (09:17)
[2020-11-02] MEDS: Metoprolol Tartrate 25 MG TAB PO SCH (09:18)
[2020-11-02] MEDS: Ondansetron ODT 4 MG TAB PO SCH (09:18)
[2020-11-02] MEDS: Enoxaparin Sodium 40 MG/0.4 ML SYRINGE SC SCH (09:18)
[2020-11-02 12:18] VITALS: TEMP 97.9
[2020-11-02] MEDS: Bupropion 150 MG XL TAB PO SCH (12:57)
[2020-11-02 14:40] VITALS: BP 133/78
--- NOTE | 2020-11-02 20:15 | DIS ---
DATE OF ADMISSION: 10/30/2020 DATE OF DISCHARGE: 11/02/2020 ADMITTING ATTENDING: Dr. Jj Dickson. DISCHARGE ATTENDING: Dr. David Hernandez. RESIDENT: Dr. Juve Aj. CONSULTS: None. PROCEDURES: None. IMAGING: Chest x-ray, 10/30/2020. Impression, no acute intrathoracic abnormality. PRIMARY DIAGNOSES: 1. COVID-19 viral syndrome. 2. Myasthenia gravis. SECONDARY DIAGNOSES: 1. History of asthma and interstitial lung disease. 2. History of congestive heart failure. 3. History of anxiety, depression, and bipolar. DISCHARGE MEDICATIONS: 1. Trazodone 100 mg at bedtime. 2. Multivitamin 1 daily. 3. Aspirin 81 mg daily. 4. Potassium 20 mEq t.i.d. 5. Lorazepam 0.5 mg b.i.d. 6. Levothyroxine 200 mcg p.o. as directed. 7. Bupropion 300 mg q.a.m. 8. Sumatriptan 100 mg p.o. q.12 hours p.r.n. 9. Entresto 49 mg/51 mg one tablet b.i.d. 10. Dicyclomine 20 mg daily. 11. Carbamazepine 200 mg two tablets p.o. b.i.d. 12. Buspirone 10 mg p.o. t.i.d. 13. Pantoprazole 40 mg daily. 14. Pyridostigmine bromide 60 mg p.o. t.i.d. 15. Metoprolol 25 mg p.o. b.i.d. 16. Diclofenac 2 g topically q.i.d. p.r.n. 17. Compazine 10 mg p.o. q.6 hours p.r.n. 18. Zofran 4 mg p.o. b.i.d. 19. Prednisone 20 mg q.a.m. x7 days. 20. Albuterol sulfate inhaler two puffs q.4 hours p.r.n. HISTORY OF PRESENT ILLNESS AND HOSPITAL COURSE: A 65-year-old female with past medical history of myasthenia gravis, status post thymoma removal, presented to the emergency department with complaints of worsening shortness of breath over the past day. The patient stated that she woke up in the morning with a cough and had increasing shortness of breath with feverish feelings and congestion, progressing throughout the day. By the time of arrival to the hospital, she was also complaining of body aches, nausea, and diarrhea. The patient was concerned that she was developing myasthenia crisis similar to what she had approximately 1 month ago. The patient also noted that she had just finished 1 week of plasma exchange therapy in [place] with her neurooncologist, Dr. Quezada. The patient was deemed to be high risk for worsening of her respiratory status, so she was admitted to the hospital. Subsequent COVID-19 testing on admission resulted positive. The subsequent day, the patient was complaining of worsening of her body aches and malaise. We trended her negative inspiratory force to assess for progression of possible myasthenia crisis. Throughout her stay, it trended up originally around 30 and then finally reaching as high as negative 45 at the time of discharge. The patient was treated with dexamethasone, prednisone, albuterol inhalers, and convalescent plasma. I discussed her treatment and course with her neurooncologist, Dr. Quezada, who agreed and suggested that they defer her plasma exchange therapy for a couple of weeks beyond what was originally planned due to her convalescent plasma therapy. The patient was instructed about this discussion and agreed to follow up with her PCP as an outpatient at [facility]. She remained off supplemental oxygen her entire admission, and at the time of discharge, was reporting a significant improvement in her perceived symptoms. DISCHARGE INSTRUCTIONS: 1. Location: Home. 2. Diet: Heart healthy. 3. Activity: As tolerated by cardiopulmonary limits. 4. Follow up with PCP within 7 days at [facility]. Job ID: [id number]
--- NOTE | 2020-11-07 23:37 | PQF ---
CLINICAL DOCUMENTATION CLARIFICATION FORM: Dear : Jj Dickson Date / Time: 11/07/2020 Please exercise your independent, professional judgment in responding to the clarification form. Clinical indicators are provided on the bottom of this form for your review Please check appropriate box(es): [ ] Sepsis [ ] Localized infection without sepsis [ ] Other diagnosis [ ] Unable to determine In addition, please specify: Present on Admission (POA): [ ] Yes [ ] No [ ] Unable to determine To be completed by CDI/Coding staff for physician review: Present Clinical Indicators - Signs / Symptoms / Labs Results and Location in Medical Record [ x ] Sepsis 2/2 Covid vs CLABSI (less likely, CVC removed 1-2 days ago, dexamethasone, additional therapies per day team H and P [ x ] Respiratory rates were 24, 26, 26, 21 and 20 ED provider notes [ x ] Blood pressures were 45474, 169/87, 162/73, 157/78 ED provider notes [ x ] WBC was 4.3 Laboratory [ x ] Lactic acid 2.4 Laboratory Present Risk Factors Results and Location in Medical Record [ x ] Covid positive, lactic acidosis, acute respiratory failure H and P Present Treatments Results and Location in Medical Record [ x ] IV Dexamethasone MAR [ x ] IV fluids MAR [ x ] Daily CBCs Laboratory CD[employer] Signature: [email or web address] Phone #: Date/Time: 11/07/2020 This is a permanent part of the Medical Record [facility]
--- NOTE | 2020-11-12 16:30 | EKG ---
Test Reason : Blood Pressure : / mmHG Vent. Rate : 087 BPM Atrial Rate : 087 BPM P-R Int : 140 ms QRS Dur : 082 ms QT Int : 374 ms P-R-T Axes : 059 026 023 degrees QTc Int : 450 ms Normal sinus rhythm Normal ECG Confirmed by SADAF SINGH M.D. ([id number]), digital editor HUSSEIN MALDONADO ([id number]) on 11/12/2020 4:30:11 PM Referred By: Confirmed By:SADAF SINGH M.D.
== END 2020-11-02 16:31 | disposition home health service (06) | DRG 177 ==
LOC: ERS 14:10 → CCU 20:44 → T4-B 10-31 12:05
PROVIDERS: ADMIT Emergency Medicine; ATTEND Emergency Medicine
PROC: 8E0ZXY6 Isolation (ICD-10-PCS; 2020-10-30)
PROC: XW13325 Transfusion of Convalescent Plasma (Nonautologous) into Peripheral Vein, Percutaneous Approach, New Technology Group 5 (ICD-10-PCS; principal; 2020-11-01)
DX: U07.1 COVID-19 (principal); G70.01 Myasthenia gravis with (acute) exacerbation; J96.00 Acute respiratory failure, unspecified whether with hypoxia or hypercapnia; E87.2 Acidosis; Z68.41 Body mass index [BMI] 40.0-44.9, adult; J45.909 Unspecified asthma, uncomplicated; I50.9 Heart failure, unspecified; F41.9 Anxiety disorder, unspecified; E87.6 Hypokalemia; L29.9 Pruritus, unspecified; E66.9 Obesity, unspecified; F31.9 Bipolar disorder, unspecified; I11.0 Hypertensive heart disease with heart failure; E83.51 Hypocalcemia; E83.42 Hypomagnesemia; Z88.0 Allergy status to penicillin; Z88.5 Allergy status to narcotic agent; Z91.010 Allergy to peanuts; Z91.012 Allergy to eggs; Z88.2 Allergy status to sulfonamides; Z88.1 Allergy status to other antibiotic agents; Z79.82 Long term (current) use of aspirin; Z85.850 Personal history of malignant neoplasm of thyroid; Z90.49 Acquired absence of other specified parts of digestive tract; Z90.89 Acquired absence of other organs; Z87.891 Personal history of nicotine dependence
CPT/HCPCS: 0240U; 36415; 36430; 36600; 51701; 71045; 80048; 80053; 81003; 82550; 82728; 82805; 83605; 83615; 83735; 84145; 84443; 84484; 85025; 85379; 85384; 85610; 85730; 86140; 86803; 86850; 86900; 86901; 87040; 87086; 87340; 87389; 93005; 94150; 94640; J1100; J1642; J1650; J2001; J2550; J3475; J3490; J7512; J7611; P9017; Q0162; Q0163

== ENCOUNTER 2021-11-15 11:27 | Inpatient (IN) | payer MEDICARE, MEDICAID ==
[2021-11-15] MEDS ORDERED: Ondansetron PF 4 MG/2 ML Vial ONE (13:23)
[2021-11-15] MEDS ORDERED: Fentanyl 100 MCG/2 ML VIAL ONE ×2 (13:23→16:35)
[2021-11-15 13:47] LABS: ALT (SGPT) 51 U/L (8-55); AST (SGOT) 44 U/L (5-34); Albumin 3.4 g/dL (3.4-4.8); Alkaline Phosphatase 118 U/L (40-110); Anion Gap 14 mmol/L (10-20); BUN (Urea Nitrogen) 11 mg/dL (9.8-20.1); Bilirubin, Total 0.3 mg/dL (0.2-1.2); Calc. Creatinine Clearance 0 mL/min (70-130); Calcium 7.5 mg/dL (7.8-10.44); Carbon Dioxide 24 mmol/L (23-31); Chloride 104 mmol/L (98-107); Globulin 3.1 g/dL (2.4-3.5); Glucose 100 mg/dL (80-115); Lipase 26 U/L (8-78); Potassium 3.4 mmol/L (3.5-5.1); Protein, Total 6.5 g/dL (5.8-8.1); Sodium 139 mmol/L (136-145)
[2021-11-15 13:49] LABS: Band 2 % (5-11); Eosinophils 1 % (0-10); Hemoglobin 11.5 g/dL (12.0-16.0); Lymphocytes 13 % (21-51); MDiff Complete? YES; Mean Corpuscular HGB CONC 35.1 g/dL (32.0-36.0); Mean Corpuscular Volume 94.1 fL (78.0-98.0); Mean Platelet Volume 7.1 fL (7.4-10.4); Monocytes 11 % (0-10); Neutrophil 72 % (42-75); Platelet Count 179 thou/uL (130-400); Platelet Morphology Comment Appears Adequate; Polychromasia SLIGHT = 2-3 cells (100X) (0-2/hpf); Red Blood Cell (RBC) Count 3.48 mill/uL (4.20-5.40)
[2021-11-15] MEDS ORDERED: Potassium Bicarbonate/Cit Ac 25 MEQ TAB PO SCH (16:00)
[2021-11-15 18:13] VITALS: BMI 40.6
[2021-11-15 18:37] LABS: Lactic Acid 2.4 mmol/L (0.5-2.2)
[2021-11-15] MEDS: Lactated Ringer's 1,000 ML IV SCH (19:46)
[2021-11-15] MEDS: Potassium Chloride 10 MEQ in Premix Bag 1 BAG IVPB SCH ×2 (19:46→21:13)
[2021-11-15] MEDS: Sodium Chloride 0.9% 1,000 ML IV SCH (21:05)
[2021-11-15] MEDS: Vancomycin 25 MG/ML Oral SOLN PO SCH ×2 (21:12→21:14)
[2021-11-15] MEDS: Ondansetron PF 4 MG/2 ML Vial IVP PRN (21:19)
[2021-11-15] MEDS: Acetaminophen 325 MG TAB PO PRN (22:08)
[2021-11-15] MEDS ORDERED: traMADol HCl 50 MG TAB PO PRN (22:59)
[2021-11-15] MEDS ORDERED: Dicyclomine 20 MG TAB PO SCH (23:00)
[2021-11-16] MEDS ORDERED: Fentanyl 100 MCG/2 ML VIAL SLOW IVP SCH ×2 (01:15→13:15)
[2021-11-16] MEDS: Sodium Chloride 0.9% 1,000 ML IV SCH (01:45)
[2021-11-16 06:31] LABS: Hemoglobin 10.1 g/dL (12.0-16.0); Mean Corpuscular HGB CONC 35.1 g/dL (32.0-36.0); Mean Corpuscular Hemoglobin 33.2 pg (27.0-31.0); Mean Corpuscular Volume 94.5 fL (78.0-98.0); Mean Platelet Volume 7.3 fL (7.4-10.4); Platelet Count 154 thou/uL (130-400); Red Blood Cell (RBC) Count 3.04 mill/uL (4.20-5.40); White Blood Cell (WBC) Count 3.4 thou/uL (4.8-10.8)
[2021-11-16] MEDS: Lactated Ringer's 1,000 ML IV SCH ×4 (06:40→23:07)
[2021-11-16] MEDS: Acetaminophen 325 MG TAB PO PRN ×2 (06:43→10:47)
[2021-11-16 06:52] LABS: Anion Gap 8 mmol/L (10-20); BUN (Urea Nitrogen) 8 mg/dL (9.8-20.1); Calc. Creatinine Clearance 136 mL/min (70-130); Calcium 7.3 mg/dL (7.8-10.44); Carbon Dioxide 31 mmol/L (23-31); Chloride 105 mmol/L (98-107); Glucose 98 mg/dL (80-115); Potassium 3.4 mmol/L (3.5-5.1); Sodium 141 mmol/L (136-145)
[2021-11-16 07:37] LABS: Band 3 % (5-11); Lymphocytes 18 % (21-51); MDiff Complete? YES; Monocytes 17 % (0-10); Myelocyte 1 % (0-0); Neutrophil 60 % (42-75); Platelet Morphology Comment Appears Adequate; Polychromasia SLIGHT = 2-3 cells (100X) (0-2/hpf); Reactive Lymphocytes 1 % (0-10)
[2021-11-16] MEDS ORDERED: Saccharomyces boulardii 250 MG CAP PO SCH (09:15)
[2021-11-16] MEDS: Vancomycin 25 MG/ML Oral SOLN PO SCH ×4 (09:17→20:13)
[2021-11-16] MEDS: Ondansetron PF 4 MG/2 ML Vial IVP PRN ×2 (09:17→17:44)
[2021-11-16] MEDS ORDERED: Potassium Phosphate 15 MMOL in Sodium Chloride 0.9% 250 ML 250 ML IVPB SCH (09:30)
[2021-11-16] MEDS ORDERED: Magnesium Sulfate 4 GM in Sodium Chloride 0.9% 250 ML 250 ML IVPB SCH (09:30)
[2021-11-16] MEDS ORDERED: Potassium Phosphate 15 MMOL, Magnesium Sulfate 4 GM in Sodium Chloride 0.9% 250 ML 250 ML IVPB SCH (09:45)
[2021-11-16] MEDS ORDERED: Metoprolol Tartrate 25 MG TAB PO SCH (10:15)
[2021-11-16 14:42] LABS: SARS-CoV-2 PCR by NAA Not Detected (NotDetected)
[2021-11-16] MEDS: busPIRone HCl 10 MG TAB PO SCH (20:12)
[2021-11-16] MEDS: carBAMazepine 200 MG TAB PO SCH (20:13)
[2021-11-16] MEDS: Metoprolol Tartrate 25 MG TAB PO SCH (20:13)
[2021-11-16] MEDS: Topiramate 25 MG TAB PO SCH (20:13)
[2021-11-16] MEDS: Lorazepam 1 MG TAB PO SCH (20:13)
[2021-11-16] MEDS ORDERED: Non-Formulary Item 1 EACH (Buspirone Hcl [Buspirone Hcl] 30 MG Tablet) PO SCH (21:00)
[2021-11-16] MEDS ORDERED: TOPIRAMATE 50 MG PO SCH (21:00)
[2021-11-16] MEDS: Fentanyl 100 MCG/2 ML VIAL SLOW IVP PRN (23:07)
[2021-11-17] MEDS: Levothyroxine Sodium 100 MCG TAB PO SCH (05:27)
[2021-11-17] MEDS: Lactated Ringer's 1,000 ML IV SCH (05:27)
[2021-11-17 06:06] LABS: Lactic Acid 1.3 mmol/L (0.5-2.2)
[2021-11-17 06:11] LABS: Band 4 % (5-11); Eosinophils 2 % (0-10); Hemoglobin 10.7 g/dL (12.0-16.0); Lymphocytes 20 % (21-51); MDiff Complete? YES; Mean Corpuscular HGB CONC 35.9 g/dL (32.0-36.0); Mean Corpuscular Hemoglobin 33.9 pg (27.0-31.0); Mean Corpuscular Volume 94.4 fL (78.0-98.0); Mean Platelet Volume 7.2 fL (7.4-10.4); Monocytes 12 % (0-10); Neutrophil 61 % (42-75); Platelet Count 162 thou/uL (130-400); Platelet Morphology Comment Appears Adequate; RBC Distribution Width 12.1 % (11.5-14.5); RBC Morphology Normal; Red Blood Cell (RBC) Count 3.15 mill/uL (4.20-5.40); White Blood Cell (WBC) Count 3.6 thou/uL (4.8-10.8)
[2021-11-17 06:12] LABS: Anion Gap 11 mmol/L (10-20); BUN (Urea Nitrogen) 5 mg/dL (9.8-20.1); Calc. Creatinine Clearance 140 mL/min (70-130); Carbon Dioxide 28 mmol/L (23-31); Chloride 105 mmol/L (98-107); Potassium 3.5 mmol/L (3.5-5.1); Sodium 140 mmol/L (136-145)
[2021-11-17 06:13] LABS: ALT (SGPT) 44 U/L (8-55); AST (SGOT) 36 U/L (5-34); Albumin 3.1 g/dL (3.4-4.8); Alkaline Phosphatase 114 U/L (40-110); Bilirubin, Total 0.4 mg/dL (0.2-1.2); Calcium 7.6 mg/dL (7.8-10.44); Globulin 2.8 g/dL (2.4-3.5); Glucose 106 mg/dL (80-115); Magnesium 1.8 mg/dL (1.6-2.6); Phosphorus 4.8 mg/dL (2.3-4.7); Protein, Total 5.9 g/dL (5.8-8.1)
[2021-11-17] MEDS ORDERED: Magnesium Sulfate 2 GM in Sodium Chloride 0.9% 100 ML IVPB SCH (07:15)
[2021-11-17] MEDS: 1/2 NS w/KCL 20 mEq 1,000 ML IV SCH ×3 (08:32→22:57)
[2021-11-17] MEDS: Enoxaparin Sodium 40 MG/0.4 ML SYRINGE SC SCH (08:33)
[2021-11-17] MEDS: Topiramate 25 MG TAB PO SCH ×2 (08:34→21:08)
[2021-11-17] MEDS: Potassium Chloride 20 MEQ TAB PO SCH ×2 (08:34→17:12)
[2021-11-17] MEDS: busPIRone HCl 10 MG TAB PO SCH ×2 (08:34→21:08)
[2021-11-17] MEDS: Magnesium 2 GM/50 ML 2 GM in Premix Bag 1 BAG IVPB SCH ×2 (08:35→08:39)
[2021-11-17] MEDS: Lorazepam 1 MG TAB PO SCH ×2 (08:36→21:09)
[2021-11-17] MEDS: Saccharomyces boulardii 250 MG CAP PO SCH (08:36)
[2021-11-17] MEDS: carBAMazepine 200 MG TAB PO SCH ×2 (08:37→21:09)
[2021-11-17] MEDS: Vancomycin 25 MG/ML Oral SOLN PO SCH ×4 (08:38→21:08)
[2021-11-17] MEDS ORDERED: Non-Formulary Item 1 EACH (Bupropion Hcl [Bupropion Xl] 300 MG Tab.Er.24h) PO SCH (09:00)
[2021-11-17] MEDS ORDERED: Non-Formulary Item 1 EACH (Levothyroxine Sodium [Levothyroxine] 200 MCG Capsule) PO SCH (09:00)
[2021-11-17] MEDS: Ondansetron PF 4 MG/2 ML Vial IVP PRN ×2 (09:10→15:26)
[2021-11-17] MEDS: Fentanyl 100 MCG/2 ML VIAL SLOW IVP PRN ×2 (09:10→15:28)
[2021-11-17] MEDS: Metoprolol Tartrate 25 MG TAB PO SCH ×2 (09:14→21:09)
[2021-11-17] MEDS: Bupropion 150 MG XL TAB PO SCH (09:19)
[2021-11-17] MEDS: Pyridostigmine Bromide IR 60 MG TAB PO SCH ×3 (12:10→21:09)
[2021-11-17] MEDS: Multivit, Therapeutic 1 TAB PO SCH (21:09)
[2021-11-18] MEDS: 1/2 NS w/KCL 20 mEq 1,000 ML IV SCH ×2 (03:48→09:39)
[2021-11-18 04:25] LABS: Band 2 % (5-11); Hypochromia SLIGHT = 6-15 cells (100X) (0-5/hpf); Lymphocytes 8 % (21-51); MDiff Complete? YES; Mean Corpuscular HGB CONC 35.1 g/dL (32.0-36.0); Mean Corpuscular Volume 93.8 fL (78.0-98.0); Mean Platelet Volume 6.9 fL (7.4-10.4); Monocytes 15 % (0-10); Neutrophil 75 % (42-75); Platelet Count 150 thou/uL (130-400); Platelet Morphology Comment Appears Adequate; Red Blood Cell (RBC) Count 3.05 mill/uL (4.20-5.40); White Blood Cell (WBC) Count 3.1 thou/uL (4.8-10.8)
[2021-11-18 04:31] LABS: ALT (SGPT) 42 U/L (8-55); AST (SGOT) 36 U/L (5-34); Alkaline Phosphatase 114 U/L (40-110); Anion Gap 11 mmol/L (10-20); BUN (Urea Nitrogen) Less than 4 mg/dL (9.8-20.1); Bilirubin, Total 0.3 mg/dL (0.2-1.2); Calc. Creatinine Clearance 148 mL/min (70-130); Carbon Dioxide 26 mmol/L (23-31); Chloride 104 mmol/L (98-107); Globulin 2.7 g/dL (2.4-3.5); Glucose 94 mg/dL (80-115); Potassium 3.6 mmol/L (3.5-5.1); Protein, Total 5.7 g/dL (5.8-8.1); Sodium 137 mmol/L (136-145)
[2021-11-18] MEDS: Levothyroxine Sodium 100 MCG TAB PO SCH (06:23)
[2021-11-18] MEDS: Bupropion 150 MG XL TAB PO SCH (09:34)
[2021-11-18] MEDS: Vancomycin 25 MG/ML Oral SOLN PO SCH ×4 (09:34→21:15)
[2021-11-18] MEDS: Metoprolol Tartrate 25 MG TAB PO SCH ×2 (09:34→21:16)
[2021-11-18] MEDS: Pyridostigmine Bromide IR 60 MG TAB PO SCH ×3 (09:34→21:16)
[2021-11-18] MEDS: Lorazepam 1 MG TAB PO SCH ×2 (09:35→21:17)
[2021-11-18] MEDS: Acetaminophen 325 MG TAB PO PRN (09:35)
[2021-11-18] MEDS: Saccharomyces boulardii 250 MG CAP PO SCH (09:39)
[2021-11-18] MEDS: Topiramate 25 MG TAB PO SCH ×2 (09:39→21:15)
[2021-11-18] MEDS: carBAMazepine 200 MG TAB PO SCH ×2 (09:47→21:21)
[2021-11-18] MEDS: busPIRone HCl 10 MG TAB PO SCH ×2 (09:47→21:15)
[2021-11-18] MEDS: Enoxaparin Sodium 40 MG/0.4 ML SYRINGE SC SCH (09:47)
[2021-11-18] MEDS ORDERED: 1/2 NS w/KCL 20 mEq 1,000 ML IV SCH (10:49)
[2021-11-18] MEDS: Sodium Chloride 0.9% 1,000 ML IV SCH (12:25)
[2021-11-18] MEDS: Potassium Chloride 20 MEQ TAB PO SCH (17:44)
[2021-11-18] MEDS: Ondansetron PF 4 MG/2 ML Vial IVP PRN (21:16)
[2021-11-18] MEDS: Multivit, Therapeutic 1 TAB PO SCH (21:16)
[2021-11-18] MEDS: Fentanyl 100 MCG/2 ML VIAL SLOW IVP PRN (22:58)
[2021-11-19] MEDS: Sodium Chloride 0.9% 1,000 ML IV SCH ×2 (00:58→13:00)
[2021-11-19] MEDS: Levothyroxine Sodium 100 MCG TAB PO SCH (05:25)
[2021-11-19] MEDS: Bupropion 150 MG XL TAB PO SCH (08:16)
[2021-11-19] MEDS: Potassium Chloride 20 MEQ TAB PO SCH (08:16)
[2021-11-19] MEDS: Topiramate 25 MG TAB PO SCH (08:17)
[2021-11-19] MEDS: Pyridostigmine Bromide IR 60 MG TAB PO SCH (08:17)
[2021-11-19] MEDS: Metoprolol Tartrate 25 MG TAB PO SCH (08:17)
[2021-11-19] MEDS: Saccharomyces boulardii 250 MG CAP PO SCH (08:17)
[2021-11-19] MEDS: busPIRone HCl 10 MG TAB PO SCH (08:18)
[2021-11-19] MEDS: Lorazepam 1 MG TAB PO SCH (08:18)
[2021-11-19] MEDS: Vancomycin 25 MG/ML Oral SOLN PO SCH ×2 (08:19→13:00)
[2021-11-19] MEDS: Acetaminophen 325 MG TAB PO PRN (08:26)
[2021-11-19] MEDS: carBAMazepine 200 MG TAB PO SCH (10:02)
[2021-11-19 12:23] VITALS: BP 131/77; TEMP 98.2
== END 2021-11-19 14:45 | disposition home or self-care (01) | DRG 372 ==
LOC: ERS 11:27 → SURG B 15:23
PROVIDERS: ADMIT Internal Medicine; ATTEND Internal Medicine
DX: A04.72 Enterocolitis due to Clostridium difficile, not specified as recurrent (principal); E87.2 Acidosis; Z68.1 Body mass index [BMI] 19.9 or less, adult; J84.9 Interstitial pulmonary disease, unspecified; Z20.822 Contact with and (suspected) exposure to COVID-19; E86.0 Dehydration; E87.6 Hypokalemia; E83.42 Hypomagnesemia; G70.00 Myasthenia gravis without (acute) exacerbation; J45.909 Unspecified asthma, uncomplicated; E66.01 Morbid (severe) obesity due to excess calories; E03.9 Hypothyroidism, unspecified; F41.9 Anxiety disorder, unspecified; D64.9 Anemia, unspecified; D72.819 Decreased white blood cell count, unspecified; E87.8 Other disorders of electrolyte and fluid balance, not elsewhere classified; I11.0 Hypertensive heart disease with heart failure; I50.9 Heart failure, unspecified; F31.9 Bipolar disorder, unspecified; Z96.653 Presence of artificial knee joint, bilateral; Z90.49 Acquired absence of other specified parts of digestive tract; Z88.0 Allergy status to penicillin; Z88.1 Allergy status to other antibiotic agents; Z88.2 Allergy status to sulfonamides; Z88.5 Allergy status to narcotic agent; Z91.010 Allergy to peanuts; Z79.890 Hormone replacement therapy; Z79.01 Long term (current) use of anticoagulants; Z79.84 Long term (current) use of oral hypoglycemic drugs; Z79.899 Other long term (current) drug therapy
CPT/HCPCS: 74177; 80048; 80053; 83605; 83690; 83735; 84100; 85025; 96374; 96375; 96376; J1650; J2405; J3010; J3475; J3480; J7050; J7120; U0003; U0005

== ENCOUNTER 2022-04-10 11:47 | Outpatient (CLI) | payer MEDICARE, MEDICAID ==
[2022-04-10 23:39] LABS: SARS-CoV-2 PCR by NAA Not Detected (NotDetected)
== END 2022-04-10 11:48 | disposition home or self-care (01) ==
LOC: LABBT 11:47
PROVIDERS: ATTEND Specialist
DX: G70.00 Myasthenia gravis without (acute) exacerbation (principal); Z20.822 Contact with and (suspected) exposure to COVID-19
CPT/HCPCS: U0003; U0005

== ENCOUNTER 2022-04-13 08:55 | Day surgery (SDC) | payer MEDICARE, MEDICAID ==
[2022-04-12 10:35] VITALS: BMI 40.6
[2022-04-13] MEDS ORDERED: Ketorolac Tromethamine 30 MG/ML VIAL ONE (09:42)
[2022-04-13] MEDS ORDERED: Acetaminophen 500 MG TAB ONE (09:42)
[2022-04-13 10:06] LABS: #Eosinphils 0.1 thou/uL (0.0-0.7); #Lymphocytes 0.8 thou/uL (1.20-3.40); #Monocytes 0.9 thou/uL (0.11-0.59); #Neutrophils 5.1 thou/uL (1.40-6.50); %Basophils 0.2 % (0.0-1.0); %Eosinophils 2.1 % (0.0-10.0); %Lymphocytes 11.8 % (21.0-51.0); %Monocytes 12.5 % (0.0-10.0); %Neutrophils 73.3 % (42.0-75.0); Hemoglobin 9.9 g/dL (12.0-16.0); Mean Corpuscular HGB CONC 33.2 g/dL (32.0-36.0); Mean Corpuscular Hemoglobin 31.7 pg (27.0-31.0); Mean Corpuscular Volume 95.3 fL (78.0-98.0); Mean Platelet Volume 6.7 fL (7.4-10.4); Platelet Count 270 thou/uL (130-400); RBC Distribution Width 13.5 % (11.5-14.5); Red Blood Cell (RBC) Count 3.11 mill/uL (4.20-5.40)
[2022-04-13 10:23] LABS: Anion Gap 14 mmol/L (10-20); BUN (Urea Nitrogen) 18 mg/dL (9.8-20.1); Calc. Creatinine Clearance 126 mL/min (70-130); Carbon Dioxide 25 mmol/L (23-31); Chloride 104 mmol/L (98-107); Glucose 158 mg/dL (80-115); Potassium 3.7 mmol/L (3.5-5.1); Sodium 139 mmol/L (136-145)
[2022-04-13] MEDS ORDERED: Bupivacaine 0.25% HCL 30 ML VIAL ONE (11:11)
[2022-04-13] MEDS ORDERED: Lidocaine 1% w/Epinephrine 1:100K 20 ML VIAL ONE (11:11)
[2022-04-13] MEDS ORDERED: fentaNYL Citrate/PF 100 MCG/2 ML SYRINGE ONE (11:17)
[2022-04-13] MEDS ORDERED: Propofol 500 MG/50 ML VIAL ONE ×2 (11:18→13:18)
[2022-04-13] MEDS ORDERED: Clindamycin/D5W 900 mg/50 ml Premix Bag ONE (11:25)
[2022-04-13] MEDS ORDERED: Ondansetron PF 4 MG/2 ML Vial ONE (12:23)
== END 2022-04-13 13:42 | disposition home or self-care (01) ==
LOC: SDC 08:55
PROVIDERS: ATTEND Specialist
PROC: 0JH60WZ Insertion of Totally Implantable Vascular Access Device into Chest Subcutaneous Tissue and Fascia, Open Approach (ICD-10-PCS; principal; 2022-04-13)
PROC: 02HV33Z Insertion of Infusion Device into Superior Vena Cava, Percutaneous Approach (ICD-10-PCS; 2022-04-13)
DX: G70.00 Myasthenia gravis without (acute) exacerbation (principal); E89.0 Postprocedural hypothyroidism; M19.90 Unspecified osteoarthritis, unspecified site; I42.8 Other cardiomyopathies; I10 Essential (primary) hypertension; Z86.14 Personal history of Methicillin resistant Staphylococcus aureus infection; Z87.891 Personal history of nicotine dependence; Z79.52 Long term (current) use of systemic steroids; Z79.890 Hormone replacement therapy; Z79.899 Other long term (current) drug therapy; Z88.0 Allergy status to penicillin; Z88.1 Allergy status to other antibiotic agents; Z88.2 Allergy status to sulfonamides; Z88.5 Allergy status to narcotic agent; Z88.8 Allergy status to other drugs, medicaments and biological substances; Z91.010 Allergy to peanuts; Z91.012 Allergy to eggs; Z91.018 Allergy to other foods
CPT/HCPCS: 36561; 71045; 80048; 85025; C1788; J1642; J1885; J2405; J2704; J3490; S0020

== ENCOUNTER 2022-08-03 09:05 | Outpatient (CLI) | payer MEDICARE, MEDICAID ==
[2022-08-03 10:33] LABS: Bilirubin Neg (Negative); Blood, Urine Negative (Negative); Clarity Cloudy (Clear); Glucose, Urine (Dipstick) Normal (Negative); Ketone, Urine Negative (Negative); Leukocyte 100 (Negative); Nitrite Negative (Negative); Protein, Urine (Dipstick) 15 mg/dl (Neg-Trace); Specific Gravity, Urine 1.015 (1.005-1.030)
[2022-08-03 10:39] LABS: Hemoglobin 12.3 g/dL (12.0-15.5); Mean Corpuscular HGB CONC 34.2 g/dL (32.0-36.0); Mean Corpuscular Hemoglobin 30.5 pg (27.0-33.0); Mean Corpuscular Volume 89.3 fl (81.6-98.3); Mean Platelet Volume 10.8 fl (7.4-10.4); Platelet Count 223 10x3/uL (150-450); RBC Distribution Width 12.9 % (11.5-14.5); Red Blood Cell (RBC) Count 4.03 10x6/uL (3.90-5.03); White Blood Cell (WBC) Count 4.5 10x3/uL (3.5-10.5)
[2022-08-03 10:59] LABS: ALT (SGPT) 27 U/L (8-55); AST (SGOT) 25 U/L (5-34); Albumin 3.9 g/dL (3.4-4.8); Alkaline Phosphatase 101 U/L (40-110); Anion Gap 15 mmol/L (10-20); BUN (Urea Nitrogen) 18 mg/dL (9.8-20.1); Bilirubin, Total 0.5 mg/dL (0.2-1.2); Calc. Creatinine Clearance 0 mL/min (70-130); Calcium 8.3 mg/dL (7.8-10.44); Carbon Dioxide 26 mmol/L (23-31); Chloride 107 mmol/L (98-107); Estimated GFR 76; Globulin 2.7 g/dL (2.4-3.5); Glucose 105 mg/dL (80-115); Protein, Total 6.6 g/dL (5.8-8.1); Sodium 144 mmol/L (136-145)
[2022-08-03 11:05] LABS: PTT 25.5 sec (22.0-33.0); Prothrombin Time 11.1 sec (9.5-12.1)
== END 2022-08-03 09:06 | disposition home or self-care (01) ==
LOC: LABBT 09:05
PROVIDERS: ATTEND Internal Medicine Cardiovascular Disease
DX: Z01.818 Encounter for other preprocedural examination (principal); I48.0 Paroxysmal atrial fibrillation; Z20.822 Contact with and (suspected) exposure to COVID-19
CPT/HCPCS: 80053; 81003; 85027; 85610; 85730; 86850; 86900; 86901; 87811; 93005; 93010

== ENCOUNTER 2022-08-03 10:00 | Inpatient (IN) | payer MEDICARE, MEDICAID ==
[2022-08-03 10:33] LABS: Bilirubin Neg (Negative); Blood, Urine Negative (Negative); Clarity Cloudy (Clear); Glucose, Urine (Dipstick) Normal (Negative); Ketone, Urine Negative (Negative); Leukocyte 100 (Negative); Nitrite Negative (Negative); Protein, Urine (Dipstick) 15 mg/dl (Neg-Trace); Specific Gravity, Urine 1.015 (1.005-1.030)
[2022-08-03 10:39] LABS: Hemoglobin 12.3 g/dL (12.0-15.5); Mean Corpuscular HGB CONC 34.2 g/dL (32.0-36.0); Mean Corpuscular Hemoglobin 30.5 pg (27.0-33.0); Mean Corpuscular Volume 89.3 fl (81.6-98.3); Mean Platelet Volume 10.8 fl (7.4-10.4); Platelet Count 223 10x3/uL (150-450); RBC Distribution Width 12.9 % (11.5-14.5); Red Blood Cell (RBC) Count 4.03 10x6/uL (3.90-5.03); White Blood Cell (WBC) Count 4.5 10x3/uL (3.5-10.5)
[2022-08-03 10:59] LABS: ALT (SGPT) 27 U/L (8-55); AST (SGOT) 25 U/L (5-34); Albumin 3.9 g/dL (3.4-4.8); Alkaline Phosphatase 101 U/L (40-110); Anion Gap 15 mmol/L (10-20); BUN (Urea Nitrogen) 18 mg/dL (9.8-20.1); Bilirubin, Total 0.5 mg/dL (0.2-1.2); Calc. Creatinine Clearance 0 mL/min (70-130); Calcium 8.3 mg/dL (7.8-10.44); Carbon Dioxide 26 mmol/L (23-31); Chloride 107 mmol/L (98-107); Estimated GFR 76; Globulin 2.7 g/dL (2.4-3.5); Glucose 105 mg/dL (80-115); Protein, Total 6.6 g/dL (5.8-8.1); Sodium 144 mmol/L (136-145)
[2022-08-03 11:05] LABS: PTT 25.5 sec (22.0-33.0); Prothrombin Time 11.1 sec (9.5-12.1)
[2022-08-07 11:44] VITALS: BMI 45.1
[2022-08-08] MEDS ORDERED: Iopamidol 370 76% 100 ML VIAL ONE ×2 (08:56→12:49)
[2022-08-08] MEDS ORDERED: Heparin 10,000 UNITS/ 10 ML VIAL ONE ×2 (11:27→12:01)
[2022-08-08] MEDS ORDERED: Clindamycin/D5W 900 mg/50 ml Premix Bag ONE (11:27)
[2022-08-08] MEDS ORDERED: Protamine Sulfate 50 MG/5 ML VIAL ONE (11:27)
[2022-08-08] MEDS ORDERED: Fentanyl 100 MCG/2 ML VIAL ONE (12:31)
[2022-08-08] MEDS ORDERED: PROPOFOL 200 MG/20 ML VIAL ONE (12:38)
[2022-08-08] MEDS ORDERED: Ondansetron PF 4 MG/2 ML Vial ONE ×2 (12:38→14:53)
[2022-08-08] MEDS ORDERED: ePHEDrine 50 MG/ML VIAL ONE (12:38)
[2022-08-08] MEDS ORDERED: Dexamethasone 20 MG/5 ML VIAL ONE (12:38)
[2022-08-08] MEDS ORDERED: Lidocaine 1% MPF 2 ML VIAL ONE (12:38)
[2022-08-08] MEDS ORDERED: fentaNYL Citrate/PF 100 MCG/2 ML SYRINGE ONE ×2 (14:45→15:32)
[2022-08-08] MEDS ORDERED: Acetaminophen/Codeine 30-300mg Tablet ONE (16:57)
[2022-08-08] MEDS ORDERED: Lorazepam 2 MG/ML VIAL ONE (17:47)
[2022-08-08] MEDS ORDERED: LORazepam 2 MG/ML SYRINGE IVP SCH ×2 (18:00)
== END 2022-08-08 19:15 | disposition home or self-care (01) | DRG 274 ==
LOC: SURG A 08-08 08:28
PROVIDERS: ADMIT Internal Medicine Cardiovascular Disease; ATTEND Internal Medicine Cardiovascular Disease
PROC: 02L73DK Occlusion of Left Atrial Appendage with Intraluminal Device, Percutaneous Approach (ICD-10-PCS; principal; 2022-08-08)
PROC: B24BZZ4 Ultrasonography of Heart with Aorta, Transesophageal (ICD-10-PCS; 2022-08-08)
DX: I48.0 Paroxysmal atrial fibrillation (principal); Z00.6 Encounter for examination for normal comparison and control in clinical research program; Z20.822 Contact with and (suspected) exposure to COVID-19; I42.8 Other cardiomyopathies; G70.00 Myasthenia gravis without (acute) exacerbation; I11.0 Hypertensive heart disease with heart failure; F41.9 Anxiety disorder, unspecified; J45.909 Unspecified asthma, uncomplicated; F31.9 Bipolar disorder, unspecified; I08.3 Combined rheumatic disorders of mitral, aortic and tricuspid valves; I50.9 Heart failure, unspecified; Z85.238 Personal history of other malignant neoplasm of thymus; Z92.21 Personal history of antineoplastic chemotherapy; Z90.89 Acquired absence of other organs; Z79.899 Other long term (current) drug therapy; Z79.01 Long term (current) use of anticoagulants; Z79.1 Long term (current) use of non-steroidal anti-inflammatories (NSAID); Z79.890 Hormone replacement therapy; Z88.1 Allergy status to other antibiotic agents; Z88.0 Allergy status to penicillin; Z88.7 Allergy status to serum and vaccine; Z88.2 Allergy status to sulfonamides; Z88.8 Allergy status to other drugs, medicaments and biological substances; Z87.891 Personal history of nicotine dependence; Z90.49 Acquired absence of other specified parts of digestive tract; Z91.012 Allergy to eggs; Z88.5 Allergy status to narcotic agent; Z91.010 Allergy to peanuts; Z91.018 Allergy to other foods
CPT/HCPCS: 33340; 36430; 80053; 81003; 85027; 85347; 85610; 85730; 86850; 86900; 86901; 87811; 93306; 93312; J1100; J1644; J2060; J2405; J2704; J2720; J3010; J3490; Q9967

== ENCOUNTER 2022-09-24 08:03 | Outpatient (CLI) | payer MEDICARE, MEDICAID ==
[2022-09-24 09:43] LABS: Hemoglobin 11.7 g/dL (12.0-15.5); Mean Corpuscular HGB CONC 33.2 g/dL (32.0-36.0); Mean Corpuscular Hemoglobin 29.7 pg (27.0-33.0); Mean Corpuscular Volume 89.3 fl (81.6-98.3); Mean Platelet Volume 11.1 fl (7.4-10.4); Platelet Count 226 10x3/uL (150-450); RBC Distribution Width 13.1 % (11.5-14.5); Red Blood Cell (RBC) Count 3.94 10x6/uL (3.90-5.03); White Blood Cell (WBC) Count 5.2 10x3/uL (3.5-10.5)
[2022-09-24 09:55] LABS: Anion Gap 15 mmol/L (10-20); BUN (Urea Nitrogen) 20 mg/dL (9.8-20.1); Calc. Creatinine Clearance 0 mL/min (70-130); Calcium 7.8 mg/dL (7.8-10.44); Carbon Dioxide 24 mmol/L (23-31); Chloride 105 mmol/L (98-107); Estimated GFR 81; Glucose 108 mg/dL (80-115); Potassium 4.9 mmol/L (3.5-5.1); Sodium 139 mmol/L (136-145)
== END 2022-09-24 08:04 | disposition home or self-care (01) ==
LOC: LABBT 08:03
PROVIDERS: ATTEND Anesthesiology Pain Medicine
DX: Z01.818 Encounter for other preprocedural examination (principal); I48.0 Paroxysmal atrial fibrillation
CPT/HCPCS: 71046; 80048; 85027

== ENCOUNTER 2022-09-28 09:48 | Day surgery (SDC) | payer MEDICARE, MEDICAID ==
[2022-09-27 14:41] VITALS: BMI 45.7
[2022-09-28] MEDS ORDERED: Lidocaine 1% PF 5 ML VIAL ONE (12:27)
[2022-09-28] MEDS ORDERED: PROPOFOL 40 ML ONE (12:27)
== END 2022-09-28 14:10 | disposition home or self-care (01) ==
LOC: SDC 09:48
PROVIDERS: ATTEND Internal Medicine Cardiovascular Disease
PROC: B246ZZ4 Ultrasonography of Right and Left Heart, Transesophageal (ICD-10-PCS; principal; 2022-09-28)
DX: I48.0 Paroxysmal atrial fibrillation (principal); I08.8 Other rheumatic multiple valve diseases; E89.0 Postprocedural hypothyroidism; J45.909 Unspecified asthma, uncomplicated; M19.90 Unspecified osteoarthritis, unspecified site; Z87.891 Personal history of nicotine dependence; Z79.890 Hormone replacement therapy; Z79.899 Other long term (current) drug therapy; Z88.0 Allergy status to penicillin; Z88.1 Allergy status to other antibiotic agents; Z88.2 Allergy status to sulfonamides; Z88.5 Allergy status to narcotic agent; Z88.8 Allergy status to other drugs, medicaments and biological substances; Z91.010 Allergy to peanuts; Z91.012 Allergy to eggs; Z91.018 Allergy to other foods; Z95.818 Presence of other cardiac implants and grafts
CPT/HCPCS: 93312; J2704

== ENCOUNTER 2022-10-23 13:39 | Outpatient (CLI) | payer OTHER | END 2022-10-23 13:40 | disposition home or self-care (01) | LOC: DTY/OP 13:39 | PROVIDERS: ATTEND Surgery | DX: E66.01 Morbid (severe) obesity due to excess calories (principal) | CPT/HCPCS: 97802 ==

== ENCOUNTER 2023-10-08 08:47 | Emergency (ER) | payer MEDICARE, MEDICAID ==
[2023-10-08] MEDS ORDERED: fentaNYL 50 mcg/mL 1 mL Vial ONE (09:15)
[2023-10-08] MEDS ORDERED: Ondansetron PF 4 MG/2 ML Vial ONE (09:15)
[2023-10-08 09:24] LABS: #Eosinphils 0.1 thou/uL (0.0-0.7); #Monocytes 0.9 thou/uL (0.11-0.59); #Neutrophils 8.2 thou/uL (1.40-6.50); %Basophils 0.3 % (0.0-1.0); %Eosinophils 0.5 % (0.0-10.0); %Lymphocytes 8.5 % (21.0-51.0); %Monocytes 9.1 % (0.0-10.0); %Neutrophils 81.2 % (42.0-75.0); Hematocrit 38.3 % (36.0-47.0); Hemoglobin 12.4 g/dL (12.0-16.0); Mean Corpuscular HGB CONC 32.4 g/dL (32.0-36.0); Mean Corpuscular Hemoglobin 30.3 pg (27.0-31.0); Mean Corpuscular Volume 93.6 fl (78.0-98.0); Mean Platelet Volume 10.4 fL (7.4-10.4); Platelet Count 260 10x3/uL (130-400); RBC Distribution Width 14.9 % (11.5-14.5); Red Blood Cell (RBC) Count 4.09 mill/uL (4.20-5.40); White Blood Cell (WBC) Count 10.1 10x3/uL (4.8-10.8)
[2023-10-08 09:47] LABS: ALT (SGPT) 26 U/L (8-55); AST (SGOT) 27 U/L (5-34); Albumin 4.1 g/dL (3.4-4.8); Alkaline Phosphatase 107 U/L (40-110); Anion Gap 14 mmol/L (10-20); BUN (Urea Nitrogen) 15 mg/dL (9.8-20.1); Bilirubin, Total 0.8 mg/dL (0.2-1.2); Calc. Creatinine Clearance 0 mL/min (70-130); Calcium 8.3 mg/dL (7.8-10.44); Carbon Dioxide 26 mmol/L (23-31); Chloride 104 mmol/L (98-107); Estimated GFR 63; Glucose 128 mg/dL (80-115); Magnesium 1.7 mg/dL (1.6-2.6); Potassium 3.8 mmol/L (3.5-5.1); Protein, Total 7.1 g/dL (5.8-8.1); Sodium 140 mmol/L (136-145)
[2023-10-08 09:51] LABS: Troponin I Less than 0.010 ng/mL (< 0.028)
== END 2023-10-08 14:59 ==
LOC: ERS 08:47
DX: R53.1 Weakness (principal); I11.0 Hypertensive heart disease with heart failure; I50.9 Heart failure, unspecified; E66.9 Obesity, unspecified; Z79.82 Long term (current) use of aspirin; Z79.899 Other long term (current) drug therapy
CPT/HCPCS: 71045; 73502; 80053; 83735; 84484; 85025; 93005; 96374; 96375; 99285; J3010; 36415; J2405

== ENCOUNTER 2023-10-09 02:05 | Outpatient (CLI) | payer MEDICARE, MEDICAID | END 2023-10-09 02:06 | disposition home or self-care (01) | LOC: RAD 02:05 | PROVIDERS: ATTEND Student in an Organized Health Care Education/Training Program | DX: I50.9 Heart failure, unspecified (principal) | CPT/HCPCS: 71045 ==

== ENCOUNTER 2024-05-28 10:39 | Outpatient (CLI) | payer MEDICARE, MEDICAID | END 2024-05-28 10:40 | disposition home or self-care (01) | LOC: SCSMRI 10:39 | PROVIDERS: ATTEND Psychiatry & Neurology Neurology | DX: R41.3 Other amnesia (principal); R90.82 White matter disease, unspecified | CPT/HCPCS: 70553 ==

== ENCOUNTER 2024-12-09 08:11 | Outpatient (CLI) | payer MEDICARE, MEDICAID | END 2024-12-09 08:12 | disposition home or self-care (01) | LOC: NM 08:11 | PROVIDERS: ATTEND Psychiatry & Neurology Neurology | DX: G20.C Parkinsonism, unspecified (principal) | CPT/HCPCS: 78803; A9584 ×2 ==